=== PATIENT | male | born 1950 | race Caucasian/White ===

== ENCOUNTER → 2019-04-16 11:17 | Outpatient (CLI) | payer MEDICARE, OTHER, SELFPAY ==
[2019-04-16 11:36] LABS: RBC Urine None Seen (0-5/HPF)
[2019-04-16 12:12] LABS: Add Manual Diff / Slide Review NO; Basophils Absolute Auto 0 /uL (0-100); Basophils Percent Auto 0.6 % (0-2); Eosinophils Absolute Auto 100 /uL (0-450); Eosinophils Percent Auto 2.4 % (2-4); Hematocrit 43.8 % (41-53); Hemoglobin 14.8 g/dL (13.5-17.5); Lymphocytes Absolute Auto 1100 /uL (1100-4500); Lymphocytes Percent Auto 17.8 % (25-40); Mean Corpuscular HGB Conc 33.9 % (30-36); Mean Corpuscular Volume 97.5 fL (80-100); Monocytes Absolute Auto 500 /uL (0-900); Monocytes Percent Auto 8.2 % (3-14); Neutrophils Absolute Auto 4400 /uL (1500-7000); Platelet Count 231 X10^3/uL (150-400); Red Cell Distribution Width 13.8 % (11.6-14.8); White Blood Cell Count 6.2 X10^3/uL (4.5-11.0)
[2019-04-16 12:33] LABS: Hemoglobin A1C% w Est Avg Glu 5.1 % (4.0-6.0)
[2019-04-16 12:40] LABS: BUN Creatinine Ratio 22.2 (6-22); Blood Urea Nitrogen 20 mg/dL (9-20); Calcium 9.2 mg/dL (8.4-10.2); Carbon Dioxide 31 mmol/L (22-32); Chloride 103 mmol/L (98-107); Estimated Glomerular Filt Rate > 60.0 mL/min (>60); Glucose 109 mg/dL (80-110); HEMOLYSIS < 15 (0-50); Potassium 4.8 mmol/L (3.4-5.1); Sodium 141 mmol/L (137-145)
[2019-04-16 12:46] LABS: Transferrin 221 mg/dL (206-381)
[2019-04-16 12:51] LABS: Appearance Urine UA CLEAR; Bilirubin Urine UA NEGATIVE (NEGATIVE); Color Urine UA YELLOW; Glucose Urine UA NEGATIVE (Negative); Ketones Urine UA NEGATIVE (NEGATIVE); Leukocyte Esterase Urine UA TRACE (NEGATIVE); Nitrite Urine UA NEGATIVE (Negative); Occult Blood Urine UA NEGATIVE (Negative); Protein Urine UA TRACE (Negative); Specific Gravity Urine UA 1.025 (1.000-1.035); pH Urine UA 6.5 (4.5-8.0)
[2019-04-16 13:05] LABS: Bacteria Urine Few (2-10); Culture Indicated Urine Specimen Cultured; Mucus Urine 1+ (Negative); WBC Urine 1-5/HPF (0-5/HPF)
== END ==
PROVIDERS: PCP Family Medicine; Visit Provider Orthopaedic Surgery
DX: Z01.818 Encounter for other preprocedural examination (principal); R73.9 Hyperglycemia, unspecified; E61.1 Iron deficiency; N39.0 Urinary tract infection, site not specified
CPT/HCPCS: 36415; 80048; 81001; 83036; 84466; 85025; 87086; 93005

== ENCOUNTER 2019-05-03 10:15 | Inpatient (IN) | payer MEDICARE, OTHER, SELFPAY ==
[2019-04-15 13:57] VITALS: BMI 41.4
[2019-05-03] VITALS (21 sets, daily range): BP systolic 149–192; BP diastolic 71–97; PULSE 78–101; RESP 8–87; TEMP 36.1–37.4; O2SAT 89–97; BMI 40.3
--- NOTE | 2019-05-03 06:00 | DI.RAD.S_ITS ---
PROCEDURE: XR KNEE RT 1TO2V INDICATIONS: post op films TECHNIQUE: 2 view(s) of the knee acquired. COMPARISON: [facility], , KNEE 1-2 VIEWS LEFT, 01/05/2008, 11:33. FINDINGS: Bones: Patient is status post knee joint arthroplasty. Hardware components are in expected positions. Visualized bony structures are intact. Soft tissues: Overlying postoperative changes are noted. IMPRESSION: Normal postoperative alignment after completion of the right total knee arthroplasty. Dictated by: Yury Ludwig M.D. on 05/03/2019 at 16:50 Approved by: Yury Ludwig M.D. on 05/03/2019 at 16:51
[2019-05-03] MEDS: LACTATED RINGERS 1,000 ML 42 ML IV (10:57)
[2019-05-03] MEDS: PREGABALIN 75 MG CAPSULE PO (11:06)
[2019-05-03] MEDS: ACETAMINOPHEN 325 MG TABLET 975 MG PO ×2 (11:06→20:55)
[2019-05-03] MEDS: VANCOMYCIN 1,000 MG/200 ML PIGGYBACK 200 MG IV (12:12)
[2019-05-03] MEDS: fentaNYL 100 MCG/2 ML INJ 50 MCG IV (12:30)
[2019-05-03] MEDS: MIDAZOLAM 2 MG/2 ML VIAL 1 MG IV (12:30)
--- NOTE | 2019-05-03 12:30 | PM.PREOP ---
Pre-operative Note Interval Note History & Physical reviewed/Exam performed by Physician: Yes Changes to H&P: No
--- NOTE | 2019-05-03 12:42 | SUR.PREOP ---
Block start time [1230] . Monitoring initiated and maintained throughout procedure. Oxygen and medications given per anesthesiologist instructions. Patient remained stable throughout procedure, no adverse reactions noted. Block end time [[address] Manuel, tolerated well.].
--- NOTE | 2019-05-03 13:15 | PM.OP.1 ---
Operative Date/Time/Diagnoses Date of procedure: 05/03/19 Time of procedure: 15:00 Pre-op diagnosis: 1. Right knee osteoarthritis 2. Failure of unicompartmental arthroplasty Post-op diagnosis: same Procedure & Clinicians Procedure: Revision of unicompartmental arthroplasty to total knee arthroplasty Same procedure as scheduled: Yes Indications: The patient has had progressively worsening right knee pain with radiographic changes consistent with progression of arthritis around his unicompartmental knee replacement. Non-operative management has failed and the patient has requested total knee replacement. The risks, benefits and alternatives to surgery were discussed with the patient prior to proceeding. Risks discussed included, but were not limited to, failure to relieve pain, stiffness, infection, nerve damage, deep venous thrombosis, pulmonary embolism, stroke, coma, heart attack, permanent paralysis and , as well as the potential need for eventual revision of the prosthetic. Surgeon: Vazquez Ding Surgical Assistant: Lili Whaley Click Yes if Unassisted: No Anesthesia Type: General, Peripheral nerve block and Local Operative Notes Findings: Severe osteoarthritic change of both patellofemoral joint and laterally with apparently good fixation of the unicompartmental arthroplasty. Closure Type: primary Specimen(s): none sent Prosthetic devices, grafts, tissues, transplants, or devices: Implants used in this procedure were manufactured by the [employer] and included the BCS II Journey total knee replacement with a size 6 right cobalt chromium femoral component, a size 5 right non porous tibial base plate, a 12 mm crosslinked polyethylene tibial insert and a 32 mm oval Carmen II patellar component. Applied: implant(s) Estimated Blood Loss (mL): 50 Blood products transfused: none Tourniquet time (min): 66 Procedure in detail: The patient was seen in the pre-operative area, where the patient identified the right knee as the operative site and this was marked with my initials. The patient received pre-operative antibiotics, and was taken to the operating room and placed on the operative table in the supine position. After satisfactory anesthesia, a second time worker out was performed. The right leg was encircled with a tourniquet about the proximal thigh, and the leg was prepared from the toes to the tourniquet with Betadine in the usual fashion due to an allergy to ChloraPrep and draped through sterile drapes. The leg was elevated and exsanguinated with Eschmark bandage and the tourniquet inflated to 250 mmHg pressure. The knee was approached through an approximately 18 cm incision centered over the patella and including his previous UKA incision and carried into the knee through a medial parapatellar arthrotomy. The anterior osteophytes and soft tissues were removed. The rotational landmarks of Ignacio's line and the transepicondylar axis were marked on the femur with electrocautery, and intramedullary guide holes for the femur and tibia were created. The distal femoral cutting guide was placed in 6 degrees of valgus using the intramedullary guide at the primary cut setting. The femoral prosthetic was then removed using the revision osteotomes. Minimal bone was removed with the prosthetic. The distal femoral cut was then made and the finishing guide applied to make the anterior, posterior and chamfer cuts.. The tibial component was then removed using the revision osteotomes. The proximal tibial cut was then made using the intramedullary guide, taking 9 mm of bone off the less involved side which corresponded to a skim cut on the medial side where the prosthetic had been removed. The posterior osteophytes and soft tissues were then removed. The posterior capsule was injected with part of a mixture of 60 ml 0.25% Marcaine mixed with 20 ml Exparel and 4 mg of morphine for post-operative pain control. The remainder of this mixture was injected into the capsule and subcutaneous tissues during cement curing. The tibia was prepared with the rotation set by an extra medullary guide. Trial tibial and femoral components were then placed and the intercondylar notch cut through the femoral trial. Range of motion was 0-125 degrees, with good stability throughout the range. The patella was then cut to accommodate the patellar prosthetic. There was no need for a lateral release. The trials were then removed, and the femoral hole plugged with a bone plug. The bone was prepared with pulsatile lavage, and dried with a sponge. Cement was applied and the final prosthetics placed. Excess cement was removed during and after cement curing. After confirming there was no extruded cement posteriorly, the final tibial insert was placed. The knee was copiously irrigated and the tourniquet deflated. Hemostasis was obtained. The capsule was closed with interrupted # 2 polyester suture. The subcutaneous layer was closed with 3-0 Vicryl, and the skin with a running 3-0 V-Lock suture and SteriStrips. An Aquacel Ag dressing was applied and the patient was taken to recovery having tolerated the procedure well. Complications: none Condition: stable Disposition: PACU Plan for aftercare: The patient will be maintained on a standard total knee replacement protocol with weight bearing as tolerated. The patient will receive aspirin and sequential compression devices for DVT prophylaxis. The patient will be discharged home when safe for the home environment.
--- NOTE | 2019-05-03 13:54 | SUR.OPER ---
Supine on padded OR bed. Pillow under head, arms secured on padded armboards <90 degree abduction. Safety belt across torso. Non-operative leg secured with tape over blanket over lower leg. Operative leg secured in DeMayo positioner. Foam padded brace at thigh of operative leg.
[2019-05-03] MEDS: BUPIVACAINE 0.25% W/ EPI 30 ML VIAL 60 ML INJ (14:02)
[2019-05-03] MEDS: MORPHINE 4 MG/ML INJ INJ (14:03)
[2019-05-03] MEDS: BUPIVACAINE LIPOSOME 266 MG/20 ML VIAL INJ (14:03)
--- NOTE | 2019-05-03 14:52 | P.PCN_ITS ---
Procedures Date/Time Date of procedure: 05/03/19 Time of procedure: 12:31 Nerve Block Time out performed: Yes Local anesthetic used: lidocaine 1% (w/ epi 5mL + 15mL 0.5opivacaine) Location of anesthetic used: adductor canal Amount of anesthesia used (mL): 20 Nerve blocks: femoral (adductor canal) Procedure successful: Yes Patient tolerated procedure: well Complications: none Additional comments: RIGHT Adductor canal block for post operative pain management. R/B discussed. Site marked. Consent verified/signed. Standard ASA monitors. NC O2. Chloroprep. Sterile technique. Femoral A/V/N identified medial mid thigh with US. Lidocaine skin wheal. 100mm x 21g Pajunk needle advanced with in-plane US guidance. Negative aspiration. LA injected medial and lateral to femoral artery. Negative aspiration throughout. No pain, no paresthesia with injection. VSS. Tolerated well. To OR.
[2019-05-03] MEDS: HYDROMORPHONE 2 MG INJ 1 MG IV (16:10)
--- NOTE | 2019-05-03 16:44 | SUR.PHASEI ---
1641 Dozing, arouses easily and spontaneously. Taking ice chips without difficulty swallowing.
--- NOTE | 2019-05-03 16:52 | SUR.PHASEI ---
Sleeping, desat occasionally, usually in the 92-94% range, occasionally as low as 88% but is becoming less frequent with a rapid return to 90s.Pain well controlled, waiting to transfer until resp are even and regular with maintained sats. Will call RT to plan appropriate care.
--- NOTE | 2019-05-03 17:30 | SUR.PHASEI ---
Report called to Cyril RN in acute care, told him that patient occasionally desats on 4LNP; that RT was notified that pt. will need eval and treat, prob CPAP. BP stable, arouses easily to voice, RLE unchanged. Preparing to transfer on O2; clothing bag to room.
--- NOTE | 2019-05-03 17:48 | SUR.PHASEI ---
1737 to room 208. bed down and locked, call light within reach. Placed on O2 at 4LNP. present, SCDs on. VSS. No further questions from staff, RLE unchanged.Pulse oximeter on.
[2019-05-03] MEDS: LACTATED RINGERS 1,000 ML 125 ML IV (18:37)
[2019-05-03] MEDS: OXYCODONE IR 10 MG TABLET PO ×2 (18:49→22:04)
[2019-05-03] MEDS: DOCUSATE 100 MG CAPSULE PO (20:55)
[2019-05-03] MEDS: ASPIRIN EC 81 MG TABLET PO (20:55)
[2019-05-03] MEDS: HYDROMORPHONE 0.5 MG INJ IV (22:05)
[2019-05-04] VITALS (9 sets, daily range): BP systolic 113–132; BP diastolic 57–72; PULSE 77–90; RESP 12–20; TEMP 36.3–37.2; O2SAT 91–98
[2019-05-04] MEDS: OXYCODONE IR 10 MG TABLET PO ×2 (01:02→04:57)
[2019-05-04] MEDS: LACTATED RINGERS 1,000 ML 125 ML IV (02:25)
[2019-05-04 06:16] LABS: Hematocrit 39.7 % (41-53); Hemoglobin 13.1 g/dL (13.5-17.5)
--- NOTE | 2019-05-04 07:25 | PM.DS.1 ---
History of Present Illness Date Patient Seen: 05/04/19 Time Patient Seen: 07:26 Chief complaint: [id number] Narrative: The history and physical are contained in the chart previously completed note. Please refer to that note for this information. Discharge Providers Date of admission: 05/03/19 10:15 Discharge Date: 05/04/19 Primary care physician: Wes Stephen MD Consults: 05/03/19 17:46 Consult to Discharge Planning Routine Comment: Consult to Physical Therapy Evaluate & Treat Comment: Physician Instructions: postop TKA protocol Discharge provider: Vazquez Ding MD Summary Discharge Diagnosis: 1. Progression of right knee osteoarthritis with failure of prior unicompartmental arthroplasty 2. Post hemorrhagic anemia Hospital Course: The patient was admitted to the hospital and taken directly to the operating room on May 03, 2019. He underwent a revision of his right knee unicompartmental arthroplasty to a total knee without complication. He did have some issues with pain control on the 1st postoperative night requiring intravenous pain medication. This was improved in the morning of postoperative day 1. He has not yet seen physical therapy but at the time of this dictation is hoped he will be able to go home later in the day provided he makes adequate progress with therapy. Status at Discharge Cognitive/behavioral status at discharge: oriented Functional status at discharge: uses cane/walker Overall status at discharge: patient is not back to baseline Time Spent with Patient Less than 30 minutes Exam Vital Signs (past 8 hours): - 05/03/19 23:30 05/04/19 05:04 05/04/19 07:07 Temperature 97.4 F L Pulse Rate 78 Respiratory Rate 20 Blood Pressure 131/72 Pulse Oximetry 94 97 96 Oxygen Delivery Method Nasal Cannula Oxygen Flow Rate 1 Narrative Exam Narrative: Right knee wound is dressed with no drainage on the bandage. Calf is soft. Light touch and motion are intact in the right lower extremity. Objective Labs Result Diagrams: 05/04/19 05:30 Labs: Laboratory Results - last 24 hr 05/04/19 05:30 Hgb 13.1 L Hct 39.7 L Discharge Plan Discharge Plan Patient Disposition: Home Discharge Med Rec/Prescriptions Prescriptions: New acetaminophen 325 mg Tablet 975 mg PO TID 30 Days Qty: 270 RF: 0 aspirin 81 mg Tablet,Delayed Release (Dr/Ec) 81 mg PO BID 42 Days Qty: 84 RF: 0 oxycodone 5 mg Tablet 5 mg PO Q3HR PRN (Reason: Pain, Moderate (4-6)) Qty: 40 RF: 0 hydroxyzine pamoate 25 mg Capsule 25 mg PO Q6HR PRN (Reason: Nausea) Qty: 40 RF: 0 Continued meloxicam 15 mg Tablet 15 mg PO DAILY RF: 0 methotrexate sodium 25 mg/mL Solution 0.8 ml IM QWEEK RF: 0 Discontinued acetaminophen [Tylenol Arthritis Pain] 650 mg Tablet Extended Release 3 tab PO BID PRN (Reason: Pain) RF: 0 Follow up/Referrals: Wes Stephen MD [Primary Care Provider] - Vazquez Ding MD [Physician] - 3-5 Days Provider Discharge Instructions Diet: Diet as Tolerated Activity: You may bear weight as tolerated on the right leg. Cold/Heat Therapy: Apply ice to the right knee for 15 minutes every hour as needed for pain control. Skin/Wound/Dressing Care Report to your healthcare provider any signs of infection, such as:: chills, fever, night sweats, increased pain, unusual drainage and unusual redness Dressing: Remove the Joseph wrap 3 days after surgery. You may then shower as normal. The leave the deeper dressing in place. If the central strip of the deeper dressing becomes saturated with either water or blood please call the office to have it changed. Visit Report/Discharge Packet Instructions: DI for Knee Replacement, How to Prevent Falls, DI for Postoperative Pain, Oxycodone, Hydroxyzine Stand Alone Forms: Surgery Discharge Discharge Data Primary Care Provider: Wes Stephen Attending Provider: Vazquez Ding Admit Date/Time: 05/03/19 10:15 Quality VTE Deep Vein Thrombosis/Pulmonary Embolism Present on Admission: No
[2019-05-04] MEDS: ASPIRIN EC 81 MG TABLET PO ×2 (08:28→21:38)
[2019-05-04] MEDS: MELOXICAM 7.5 MG TABLET 15 MG PO (08:28)
[2019-05-04] MEDS: DOCUSATE 100 MG CAPSULE PO ×2 (08:28→21:38)
[2019-05-04] MEDS: ACETAMINOPHEN 325 MG TABLET 975 MG PO ×2 (08:28→21:39)
[2019-05-04] MEDS: OXYCODONE IR 5 MG TABLET PO ×3 (08:29→21:43)
[2019-05-04] MEDS: SODIUM CHLORIDE 0.9% FLUSH 10 ML IV ×2 (08:30→21:38)
--- NOTE | 2019-05-04 09:24 | CM.DANOTE ---
DCP/Assessment: Reviewed chart. Patient is a 68yr old male admitted to [facility] for elective right TKA performed on 05-03-[address] Ding. PCP is Dr. Stephen. Primary payor is 1)Medicare 2)[employer]. Met with patient explained CM/SW role. Patient alert and oriented at time of visit. Patient resting comfortably in bed. Therapy evaluation currently pending. Patient hopes to return home today. Patient reports that he has all needed DME and outpatient therapy arranged. P: Anticipate home when stable. CM team to continue to follow. Therapy evaluation pending. 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 Yes Advance Directives on File No History Provided By Patient Medical Record Prior Living Arrangements House Household Members spouse Type of transporation used prior to Drives own vehicle admit Independent with ADL's Yes Is patient alert and oriented? Yes Caregiver for Another No DME Already Rented / Owned FWW / Walker Other Comment Ramp Patient/Family Preference OP PT Therapy Comment [facility] Barriers to Discharge No Discharge Plan Home Transportation Arrangement Family Whiteboard Updated in Patient Room with Yes name and ext. # of Branding 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 Review Status In Process Next Review Type Continued Stay Review Pre-Anesthesia Assessment Start: 04/15/19 13:57 Freq: Status: Complete Protocol: Document 04/15/19 13:57 CAB (Rec: 04/15/19 14:30 CAB [id number]) Pre-Anesthesia Assessment PAC Comment Chlorhexidine allergy Patient Information Reviewed Via Phone Assessment Assessment Completed With Patient Primary Care Provider Wes Stephen Seen Specialist in Last 12 Months Yes Specialist Seen [place] [facility] Primary Language Northern [place] Sports Official Required No Height 177.8 cm Weight 131.088 kg Body Mass Index (BMI) 41.4 Hearing Ability Hard of Hearing Visual Assist Glasses Magnifying Glass Dentition Type Teeth, Natural Present Barriers to Learning None Auditory Other Aids No Hx Anesthesia Reactions Yes: It takes a long time for me to wake up Hx Family Anesthesia Reaction No Hx Malignant Hyperthermia No Hx Blood Transfusions Yes: x 4 2012 r/t hip surgeries Hx Blood Transfusion Reaction No Anesthesia Review Requested No alcohol intake current alcohol intake frequency a few times a week Smoking Status Never smoker Substance Use Type does not use Pain Present Pain Reported Musculoskeletal Symptoms Abnormal Gait Difficulty Walking Joint Pain Muscle Weakness Numbness History of Falling (Recent or History of Yes ) Patient is completely paralyzed or No completely immobile Mental Status Oriented to own ability Is patient on oxygen? No Does patient have EAST/SOB No Hx Sleep Apnea No Currently Taking a Beta Jesus No Can You Climb a Flight of Stairs Without Yes SOB Hx Chest Pain No Hx SOB No Hx Syncope or Dizziness No Anti-Coagulant Therapy No Has a Cut Off Saw Grader No Cardiac Testing No Hx Pacemaker/ICD No Pacemaker Rep Required? 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 Marital Status Lives With spouse Prior Living Arrangements House Number of Floors (Floors) Two Floors Support System Child/Children Spouse Does the Patient Have Assistance After Yes Surgery Patient Discharge Plan Description Return Home Comment Pt advised 1-2 day length of stay per surgeon's office Feels Safe in Current Environment Yes Been Physically Hurt or Threatened By a No Person in Current Environment Do you have thoughts of harming yourself None or others? Are you currently considering suicide? No Do you have a plan to hurt yourself or No Plan others? Do You Have Any Spiritual Beliefs That No May Affect Your HC Choices? Do You Have Any Cultural Practices That No May Affect Your HC Choices? Comment Denzel Who Can We Speak to About Patient's Care Family, friends Identifying Code for Release of Patient Declines to issue Information Health Care Proxy/Next of Kin Casie () Health Care Proxy Emergency Contact Name Casie () Emergency Contact Advance Directives? Yes Advance Directives on File No PAC Instructions Durable medical equipment Medications to take/avoid Nasal antibiotic No ETOH/petroleum product on skin DOS NPO Ortho class Post-op transportation Pre-surgical wash Sturdy shoes/comfortable clothes Do not bring valuables and remove jewelry
--- NOTE | 2019-05-04 09:35 | PT.IIE ---
Current Diagnoses Unilateral primary osteoarthritis, right knee (05/03/19) Presence of artificial knee joint, bilateral (05/03/19) Surgery Performed Operation Date: 05/03/19 12:30 Actual Procedures p Total Knee Arthroplasty Revision-Uni to total(Right) - Vazquez Ding MD Surgical History (Last Updated 04/15/19 @ 14:22 by Kortney Wray RN) History of total left hip arthroplasty (Acute ~2011) Hx of tonsillectomy (Acute) Medical History (Last Updated 04/15/19 @ 14:16 by Kortney Wray RN) Easy bruisability (Acute) Hearing impaired (Acute) History of prosthetic unicompartmental arthroplasty of both knees (Acute) Numbness (Acute) Skin cancer (Acute ~02/2019) Physical Therapy Inpatient Evaluation/Re-Eval M1 PT/OT-IP Prior Functional Status Start: 05/04/19 12:45 Freq: NEEDED Status: Active Protocol: Document 05/04/19 09:35 AB (Rec: 05/04/19 12:57 AB [id number]) Medical Review Prior Functional Status Medical History Reviewed Yes Communication able to make needs known Mobility and Gait pt stated that he is independent with all mobilities and ambulation without AD Social History Household Members spouse Living Arrangements House Number of Floors (Floors) One Floor Number of Stairs To Enter/Railing? ramp to enter Home Environment Standard Height Toilet Tub/Shower Home Equipment Front Wheel Walker Quad Cane Straight Cane Shower Seat without Backrest Hand Held Shower Grab Bars In Shower Employment Status Retired M2 PT-IP Current Condition Start: 05/04/19 12:45 Freq: NEEDED Status: Active Protocol: Document 05/04/19 09:35 AB (Rec: 05/04/19 12:57 AB [id number]) Physical Therapy Current Condition Current Condition Evaluation Date 05/04/19 Treatment Diagnosis s/p R TKA revision; difficulty in walking Onset Date 05/03/19 Weight Bearing Status Weight Bearing Status Weight Bear as Tolerated M3 PT-IP Subjective Start: 05/04/19 12:45 Freq: NEEDED Status: Active Protocol: Document 05/04/19 09:35 AB (Rec: 05/04/19 12:57 AB [id number]) Subjective Physical Therapy Visit Type Type Initial Evaluation Visit Start Time 09:35 Visit Stop Time 10:28 Total Visit Minutes 53 Number of LAP POLISHER Visits 0 Physical Therapy Visit Comments Patient Comments pt agreeable to do PT; spouse present during PT session Therapy Pain Assessment Pain When Pain Assessed At Rest Pain Present Pain Present Pain Reported Location right knee Intensity 2 Scale Used Numeric (1 - 10) Pain Management Techniques Apply Cold Re-positioning Timing of Activity with Medications M4 PT-IP Mobility and Gait Start: 05/04/19 12:45 Freq: NEEDED Status: Active Protocol: Document 05/04/19 09:35 AB (Rec: 05/04/19 12:57 AB [id number]) PT-Bed Mobility Assessment Supine to Sit Supine to Sit Standby Assistance Scooting Scooting to Edge of Bed Standby Assistance PT-Transfer Assessment Sit to and From Stand Sit to and from Stand Contact Guard Assistance Minimal Assistance Equipment Transfer Assistive Device Gait Belt Front Wheeled Walker Orthotic/Prosthetic Devices or Brace: No Transfers Transfer Destination Chair Transfer Technique pt ambulated using FWW Transfer Ability Level of Assist Contact Guard Assistance Minimal Assistance Use of Upper Extremities Comments Mobility Comments pt completed supine to sit SBA . completed sit to stand CGA to min A and cues for techniques. pt ambulated using FWW ~ 12 towards the chair CGA to min A and cues. caregiver training conducted with spouse. educated spouse on how to use safety belt and how to assist pt. spouse was able to assist pt with sit to stand and ambulated with pt ~ 12 ft using FWW. pt rested sitting EOB and ambulated again back to the chair using FWW CGA to min A and cues. Spouse that that pt has to be able to ambulate ~ 50 ft to get inside the house. Gait Assessment Gait Gait Assistance Required: Contact Guard Assist Minimum Assistance Distance (Feet) 12 Able to Maintain Weight Bearing Status Yes During Gait Assistive Devices Assistive Device Gait Belt Front Wheeled Walker Orthotic/Prosthetic Devices or Brace: No Gait Deviations General Gait Pattern Antalgic Decreased Stride Length Decreased Feet Clearance Step-to Gait Factors Limiting Gait Function Factors Limiting Gait Function Decreased Activity Tolerance Decreased Strength Limited Range of Motion Pain Poor Balance PT-Balance Assessment Sitting Balance and Reactions Static Sitting Balance Ability Good Dynamic Sitting Balance Ability Good Standing Balance and Reactions Static Standing Balance Ability Fair Dynamic Standing Balance Ability Fair Device Used FWW M5 PT-IP Objective Assessments Start: 05/04/19 12:45 Freq: NEEDED Status: Active Protocol: Document 05/04/19 09:35 AB (Rec: 05/04/19 12:57 AB [id number]) Orientation Orientation/Cognition Level of Alertness Alert Orientation Name Place Situation Language Function Ability No Deficits Noted Safety Awareness Understands Safety Issues Memory Description No Deficits Noted Gross Range of Motion Lower Extremity ROM Assessment Right Impaired Impairments R knee flexion: ~ 70 deg R knee extension ~ 20 deg Strength Lower Extremity Strength Assessment Right Impaired Hip 3+/5 Knee 3-/5 Sensation Assessment Sensation Gross Sensation WNL Muscle Tone Muscle Tone WNL Yes M6 PT-IP Treatment Start: 05/04/19 12:45 Freq: NEEDED Status: Active Protocol: Document 05/04/19 09:35 AB (Rec: 05/04/19 12:57 AB [id number]) Physical Therapy Treatment Exercises Exercises Quad Sets Heel Slides Education Education Provided Precautions Weight Bearing Status Post-Op Packet Safety M7 PT-IP Assessment and Plan Start: 05/04/19 12:45 Freq: NEEDED Status: Active Protocol: Document 05/04/19 09:35 AB (Rec: 05/04/19 12:57 AB [id number]) PT Summary Assessment and Plan Potential Rehabilitation Potential Good Status of Condition at Evaluation Stable Summary Impairments Pain ROM Strength Balance Coordination Sensation Bed Mobility Transfers Gait Activity Tolerance Assessment Summary pt requiring CGA to min A with mobility. caregiver training conducted with pt and spouse. spouse was able to assist pt. will conduct long distance ambulation for next tx session . spouse stated that pt has to be able to ambulate ~ 50 ft to get into the house but pt was tired towards end of tx session and unable to ambulate more. pt plans to go home and spouse will assist him. pt is already set up for outpt PT. Goals Bed Mobility Goal Independent Transfer Goal Independent Front Wheeled Walker Gait Goal Standby Assistance Front Wheel Walker Gait Distance 200 Days to Meet Goals 3 Frequency of Treatment Frequency Of Treatment Twice a Day Treatment Plan Physical Therapy Treatment Plan Bed Mobility Training Transfer Training Gait Training Therapeutic Exercise Balance Retraining Post Op Education Discharge Planning Hot or Cold Pack Neuromuscular Re-ed Coordination Retraining Manual Therapy Other Recommendations and Next Treatment ambulation long distance Focus Recommendations To Nursing Amount of Assist Needed 1 Person Assist Discharge Recommendations PT Discharge Recommendations Home with Assistance Outpatient PT
--- NOTE | 2019-05-04 15:18 | PT.IPTN ---
Current Diagnoses Unilateral primary osteoarthritis, right knee (05/03/19) Presence of artificial knee joint, bilateral (05/03/19) Surgery Performed Operation Date: 05/03/19 12:30 Actual Procedures p Total Knee Arthroplasty Revision-Uni to total(Right) - Vazquez Ding MD Physical Therapy Treatment Note M2 PT-IP Current Condition Start: 05/04/19 12:45 Freq: NEEDED Status: Active Protocol: Document 05/04/19 09:35 AB (Rec: 05/04/19 12:57 AB [id number]) Physical Therapy Current Condition Current Condition Evaluation Date 05/04/19 Treatment Diagnosis s/p R TKA revision; difficulty in walking Onset Date 05/03/19 Weight Bearing Status Weight Bearing Status Weight Bear as Tolerated M3 PT-IP Subjective Start: 05/04/19 12:45 Freq: NEEDED Status: Active Protocol: Document 05/04/19 14:00 CLB (Rec: 05/04/19 15:18 CLB [id number]) Subjective Physical Therapy Visit Type Type Treatment Note Visit Start Time 14:00 Visit Stop Time 14:30 Total Visit Minutes 30 Number of DIRECTOR CASE Visits 1 Physical Therapy Visit Comments Patient Comments pt agreeable to do PT; spouse present during PT session Therapy Pain Assessment Pain When Pain Assessed During Mobility Pain Present Pain Present Pain Reported Location right knee Intensity 6 Scale Used Numeric (1 - 10) Pain Management Techniques Apply Cold Re-positioning Timing of Activity with Medications M4 PT-IP Mobility and Gait Start: 05/04/19 12:45 Freq: NEEDED Status: Active Protocol: Document 05/04/19 14:00 CLB (Rec: 05/04/19 15:18 CLB [id number]) PT-Bed Mobility Assessment Sit to Supine Sit to Supine Moderate Assistance 2 Person Assistance Scooting Scooting Up and Down in Bed Minimal Assistance PT-Transfer Assessment Sit to and From Stand Sit to and from Stand Moderate Assistance 2 Person Assistance Use of Upper Extremities Equipment Transfer Assistive Device Gait Belt Front Wheeled Walker Orthotic/Prosthetic Devices or Brace: No Transfers Transfer Destination Bed Transfer Technique pt ambulated using FWW Transfer Ability Level of Assist Minimal Assistance 1 Person Assistance Use of Upper Extremities Comments Mobility Comments Pt required Mod A x2 to stand from chair. Pt required CGA to sit onto bed with cues for hand placement to control descent. Pt required Mod A sit -supine with verbal cues to to scoot up in bed as pt used bed rails over head to assist with scooting. Gait Assessment Gait Gait Assistance Required: Contact Guard Assist 1 Person Assist Distance (Feet) 12 Able to Maintain Weight Bearing Status Yes During Gait Assistive Devices Assistive Device Gait Belt Front Wheeled Walker Orthotic/Prosthetic Devices or Brace: No Gait Deviations General Gait Pattern Antalgic Decreased Stride Length Decreased Feet Clearance Step-to Gait Factors Limiting Gait Function Factors Limiting Gait Function Decreased Activity Tolerance Decreased Strength Limited Range of Motion Pain Poor Balance Comments Gait Comments Pt c/o increased pain with ambulation and was too fatigued to ambulate any farther. Pt on 2L O2, O2 saturation at rest 92%, saturation during activity 98% . Pt c/o SOB with ambulation. M5 PT-IP Objective Assessments Start: 05/04/19 12:45 Freq: NEEDED Status: Active Protocol: Document 05/04/19 09:35 AB (Rec: 05/04/19 12:57 AB [id number]) Orientation Orientation/Cognition Level of Alertness Alert Orientation Name Place Situation Language Function Ability No Deficits Noted Safety Awareness Understands Safety Issues Memory Description No Deficits Noted Gross Range of Motion Lower Extremity ROM Assessment Right Impaired Impairments R knee flexion: ~ 70 deg R knee extension ~ 20 deg Strength Lower Extremity Strength Assessment Right Impaired Hip 3+/5 Knee 3-/5 Sensation Assessment Sensation Gross Sensation WNL Muscle Tone Muscle Tone WNL Yes M6 PT-IP Treatment Start: 05/04/19 12:45 Freq: NEEDED Status: Active Protocol: Document 05/04/19 14:00 CLB (Rec: 05/04/19 15:18 CLB [id number]) Physical Therapy Treatment Exercises Exercises Ankle Pumps Quad Sets Heel Slides Education Education Provided Precautions Weight Bearing Status Safety Other Treatments Other Treatment Performed Placed SCD's on at end of tx. M7 PT-IP Assessment and Plan Start: 05/04/19 12:45 Freq: NEEDED Status: Active Protocol: Document 05/04/19 14:00 CLB (Rec: 05/04/19 15:18 CLB [id number]) PT Summary Assessment and Plan Summary Impairments Pain ROM Strength Balance Coordination Sensation Bed Mobility Transfers Gait Activity Tolerance Assessment Summary Pt requiring increased assist this tx needing Mod A x2 sit- stand and sit-supine. Pt with increased pain and fatigue after ~12ft requiring him to sit down. Pt will need to ambulate ~50ft from car to house and at this time pt is unable to ambulate the needed distance for safe discharge. Pt also requires increased assist into bed and will not be able to provide the proper degree of assist. Pt may continue to improve during hospital stay but may require SNF rehab to improve mobility and strength. Goals Bed Mobility Goal Independent Transfer Goal Independent Front Wheeled Walker Gait Goal Standby Assistance Front Wheel Walker Gait Distance 200 Days to Meet Goals 3 Frequency of Treatment Frequency Of Treatment Twice a Day Treatment Plan Physical Therapy Treatment Plan Bed Mobility Training Transfer Training Gait Training Therapeutic Exercise Balance Retraining Post Op Education Discharge Planning Hot or Cold Pack Neuromuscular Re-ed Coordination Retraining Manual Therapy Other Recommendations and Next Treatment ambulation long distance Focus Recommendations To Nursing Amount of Assist Needed 1 Person Assist Discharge Recommendations PT Discharge Recommendations Home with Assistance SNF Rehab Outpatient PT
--- NOTE | 2019-05-04 15:41 | PC.NURSE ---
Day Shift- Pt tolerated breakfast, OOB with PT to recliner chair. Around 1145, pt had large amount of emesis over himself and onto the floor infront of recliner chair. Nausea settled after vomiting. Pain medication Oxycodone po prn given at 0830 and 1155 with good effect. At 1300, AUTO BODY REPAIR TECHNICIAN stated was difficult to get an O2 sat reading. Bilateral Fingertips and toes were cool to touch, nail beds slightly discolored. Warm blanket applied. RT called to assess. Had pt perform incentive spirometer that he had from Ortho office. RT placed pt on 3L NC, recovered from low 80's to mid 90's, placed down to 2L NC O2. O2 sat 96%. RT gave pt hospital incentive spirometer to use. RR 12 bpm. At 1430, PT stated that pt walked only 10 feet from recliner around end of bed. Recommend pt to stay for further PT. Evening RN aware to call Physician to have discharge orders cancelled.
[2019-05-04] MEDS: [UNRECOGNIZED DRUG - OTHER] TOP (21:38)
[2019-05-05] VITALS (10 sets, daily range): BP systolic 121–143; BP diastolic 56–66; PULSE 79–90; RESP 16–18; TEMP 36.4–37.6; O2SAT 88–98
--- NOTE | 2019-05-05 06:44 | PM.PNPO.1 ---
Subjective Date Patient Seen: 05/05/19 Time Patient Seen: 06:44 Interval history: The patient reports he is comfortable. Despite his best efforts he made minimal progress with physical therapy yesterday. Nursing reports he is still requiring oxygen supplementation to maintain his saturation at rest. With activity his saturation is 98% with 2 L supplementation. Exam Vital Signs (past 8 hours): - 05/04/19 23:00 05/05/19 05:44 Temperature 98.4 F 99.0 F Pulse Rate 89 81 Respiratory Rate 16 18 Blood Pressure 131/58 L 129/59 L Pulse Oximetry 93 97 Oxygen Delivery Method Nasal Cannula Oxygen Flow Rate 2 Narrative Exam Narrative: Right knee wound is dressed with no drainage on the bandage. Calf is soft. Light touch and motion are intact in the right lower extremity. Objective Labs Result Diagrams: 05/04/19 05:30 Assessment & Plan Post-op Postoperative Procedures Operation Date: 05/03/19 12:30 Actual Procedures Side Surgeon p Total Knee Arthroplasty Revision-Uni to total Right Vazquez Ding MD Postoperative day: 2 Postoperative status: doing well and other (Poor oxygenation) Postoperative status narrative: The patient is generally stable from a pain control status. The patient was in poor physical condition preoperatively and this is manifesting postoperatively with slow progress with physical therapy. At this point he has not been made appropriate milestones for discharge home from standpoint of physical therapy. We also need to monitor his oxygenation before discharge. Postoperative plan: routine post-op care, ambulate and other (Incentive spirometer) Postoperative plan narrative: We will continue the work with the patient with physical therapy to advance his ambulatory status. We will have him concentrate on using his incentive spirometer. It is also likely his oxygenation will improve when he is up and moving around rather than in the supine position with his pannus depressing his abdominal contents and restricting his respiratory volumes. I anticipate he will be able to be discharged tomorrow. Time Spent With Patient less than 15 minutes Quality VTE Deep Vein Thrombosis/Pulmonary Embolism Present on Admission: No
[2019-05-05] MEDS: ACETAMINOPHEN 325 MG TABLET 975 MG PO ×3 (08:12→20:24)
[2019-05-05] MEDS: ASPIRIN EC 81 MG TABLET PO ×2 (08:12→20:26)
[2019-05-05] MEDS: DOCUSATE 100 MG CAPSULE PO ×2 (08:12→20:24)
[2019-05-05] MEDS: MELOXICAM 7.5 MG TABLET 15 MG PO (08:13)
[2019-05-05] MEDS: OXYCODONE IR 5 MG TABLET PO ×2 (08:13→12:02)
[2019-05-05] MEDS: SODIUM CHLORIDE 0.9% FLUSH 10 ML IV ×2 (08:13→20:25)
[2019-05-05] MEDS: [UNRECOGNIZED DRUG - OTHER] TOP ×2 (08:15→20:25)
--- NOTE | 2019-05-05 10:58 | PT.IPTN ---
Current Diagnoses Unilateral primary osteoarthritis, right knee (05/03/19) Presence of artificial knee joint, bilateral (05/03/19) Surgery Performed Operation Date: 05/03/19 12:30 Actual Procedures p Total Knee Arthroplasty Revision-Uni to total(Right) - Vazquez Ding MD Physical Therapy Treatment Note M2 PT-IP Current Condition Start: 05/04/19 12:45 Freq: NEEDED Status: Active Protocol: Document 05/04/19 09:35 AB (Rec: 05/04/19 12:57 AB [id number]) Physical Therapy Current Condition Current Condition Evaluation Date 05/04/19 Treatment Diagnosis s/p R TKA revision; difficulty in walking Onset Date 05/03/19 Weight Bearing Status Weight Bearing Status Weight Bear as Tolerated M3 PT-IP Subjective Start: 05/04/19 12:45 Freq: NEEDED Status: Active Protocol: Document 05/05/19 09:30 CLB (Rec: 05/05/19 10:57 CLB [id number]) Subjective Physical Therapy Visit Type Type Treatment Note Visit Start Time 09:30 Visit Stop Time 10:05 Total Visit Minutes 35 Number of SOLDERER ASSEMBLER Visits 2 Physical Therapy Visit Comments Patient Comments pt agreeable to do PT; spouse present during PT session Therapy Pain Assessment Pain When Pain Assessed During Mobility Pain Present Pain Present Pain Reported Location right knee Intensity 2 Scale Used Numeric (1 - 10) Pain Management Techniques Apply Cold Re-positioning Timing of Activity with Medications M4 PT-IP Mobility and Gait Start: 05/04/19 12:45 Freq: NEEDED Status: Active Protocol: Document 05/05/19 09:30 CLB (Rec: 05/05/19 10:57 CLB [id number]) PT-Bed Mobility Assessment Supine to Sit Supine to Sit Moderate Assistance 1 Person Assistance Scooting Scooting to Edge of Bed Moderate Assistance PT-Transfer Assessment Sit to and From Stand Sit to and from Stand Minimal Assistance 1 Person Assistance Use of Upper Extremities Equipment Transfer Assistive Device Gait Belt Front Wheeled Walker Transfers Transfer Destination Bed Chair Transfer Technique pt ambulated using FWW Transfer Ability Level of Assist Minimal Assistance 1 Person Assistance Use of Upper Extremities Comments Mobility Comments Pt required Mod A supine-sit with use of draw sheet to get to EOB. Pt on 2L O2 with saturations at 94% while resting and O2 saturations decreasing as low as 71% with exersion. Pt able to return to 90% with cues for pursed lip breathing after just a few breaths. Gait Assessment Gait Gait Assistance Required: Contact Guard Assist 1 Person Assist Distance (Feet) 12 Able to Maintain Weight Bearing Status Yes During Gait Assistive Devices Assistive Device Gait Belt Front Wheeled Walker Orthotic/Prosthetic Devices or Brace: No Gait Deviations General Gait Pattern Antalgic Decreased Stride Length Decreased Feet Clearance Step-to Gait Factors Limiting Gait Function Factors Limiting Gait Function Decreased Activity Tolerance Decreased Strength Limited Range of Motion Pain Poor Balance Comments Gait Comments Pt improved with gait and rated his pain during ambulation 11/15. Pt tires after 12 ft and needed to sit. M5 PT-IP Objective Assessments Start: 05/04/19 12:45 Freq: NEEDED Status: Active Protocol: Document 05/04/19 09:35 AB (Rec: 05/04/19 12:57 AB [id number]) Orientation Orientation/Cognition Level of Alertness Alert Orientation Name Place Situation Language Function Ability No Deficits Noted Safety Awareness Understands Safety Issues Memory Description No Deficits Noted Gross Range of Motion Lower Extremity ROM Assessment Right Impaired Impairments R knee flexion: ~ 70 deg R knee extension ~ 20 deg Strength Lower Extremity Strength Assessment Right Impaired Hip 3+/5 Knee 3-/5 Sensation Assessment Sensation Gross Sensation WNL Muscle Tone Muscle Tone WNL Yes M6 PT-IP Treatment Start: 05/04/19 12:45 Freq: NEEDED Status: Active Protocol: Document 05/05/19 09:30 CLB (Rec: 05/05/19 10:57 CLB [id number]) Physical Therapy Treatment Exercises Exercises Quad Sets Heel Slides Straight Leg Raises M7 PT-IP Assessment and Plan Start: 05/04/19 12:45 Freq: NEEDED Status: Active Protocol: Document 05/05/19 09:30 CLB (Rec: 05/05/19 10:57 CLB [id number]) PT Summary Assessment and Plan Summary Impairments Pain ROM Strength Balance Coordination Sensation Bed Mobility Transfers Gait Activity Tolerance Assessment Summary Pt continues to require Mod A for bed mobility but was able to stand with Min A with raised bed. Pt requires cues for hand placement before sitting to slow descent and needed assist advancing RLE forward before sitting. Pt O2 saturations on 2L during bed mobility decreased to 71% then increased with PLB after just a few breaths. Pt may required SNF rehab at d/c to increase activity tolerance and strength. Goals Bed Mobility Goal Independent Transfer Goal Independent Front Wheeled Walker Gait Goal Standby Assistance Front Wheel Walker Gait Distance 200 Days to Meet Goals 3 Frequency of Treatment Frequency Of Treatment Twice a Day Treatment Plan Physical Therapy Treatment Plan Bed Mobility Training Transfer Training Gait Training Therapeutic Exercise Balance Retraining Post Op Education Discharge Planning Hot or Cold Pack Neuromuscular Re-ed Coordination Retraining Manual Therapy Recommendations To Nursing Amount of Assist Needed 1 Person Assist Discharge Recommendations PT Discharge Recommendations Home with Assistance SNF Rehab Outpatient PT
--- NOTE | 2019-05-05 11:08 | PC.NURSE ---
Day Shift- Pt reports 2-/10 pain, aching and throbbing with movement to right knee incision area. PRN Oxycodone given at 0813 with good effect. Right knee aquacel dressing intact with small amount of drainage shadowing to proximal end of dressing, area now marked with pen by this global technical writer. Date on dressing from 05/04/19. Joseph wrap covering dressing. CMS+. PPP, Edema RLE 1+ pitting around ankle to mid calf area. Edema LLE non pitting to ankle. Pt states his legs get swollen in the evening time when at home. OOB with PT from bed to chair this AM. Settled in chair in reclined position, ice pack X2 to right knee. O2 sat 94% on 2L NC, decreased to 1L NC this AM, RT checked O2 sat for pt, O2 NC increased to 2L NC. Will monitor. Encouraged ankle pumps exercises, while sitting in chair as SCD's removed for activity. Also pt able to properly demonstrate use of incentive spirometer. Volume [id number]. encouraged use hourly. Right lower lobe diminished with slight coarseness. Stated feeling short of breath with exertion ambulating in room with PT.
--- NOTE | 2019-05-05 14:30 | PT.IPTN ---
Current Diagnoses Unilateral primary osteoarthritis, right knee (05/03/19) Presence of artificial knee joint, bilateral (05/03/19) Surgery Performed Operation Date: 05/03/19 12:30 Actual Procedures p Total Knee Arthroplasty Revision-Uni to total(Right) - Vazquez Ding MD Physical Therapy Treatment Note M2 PT-IP Current Condition Start: 05/04/19 12:45 Freq: NEEDED Status: Active Protocol: Document 05/04/19 09:35 AB (Rec: 05/04/19 12:57 AB [id number]) Physical Therapy Current Condition Current Condition Evaluation Date 05/04/19 Treatment Diagnosis s/p R TKA revision; difficulty in walking Onset Date 05/03/19 Weight Bearing Status Weight Bearing Status Weight Bear as Tolerated M3 PT-IP Subjective Start: 05/04/19 12:45 Freq: NEEDED Status: Active Protocol: Document 05/05/19 14:10 CLB (Rec: 05/05/19 17:36 CLB [id number]) Subjective Physical Therapy Visit Type Type Treatment Note Visit Start Time 14:10 Visit Stop Time 14:42 Total Visit Minutes 32 Number of DIRECTOR HR COMMUNICATIONS Visits 3 Physical Therapy Visit Comments Patient Comments pt agreeable to do PT; spouse present during PT session Therapy Pain Assessment Pain When Pain Assessed During Mobility Pain Present Pain Present Pain Reported Location right knee Intensity 6 Scale Used Numeric (1 - 10) Pain Management Techniques Apply Cold Re-positioning Timing of Activity with Medications M4 PT-IP Mobility and Gait Start: 05/04/19 12:45 Freq: NEEDED Status: Active Protocol: Document 05/05/19 14:10 CLB (Rec: 05/05/19 17:36 CLB [id number]) PT-Bed Mobility Assessment Supine to Sit Supine to Sit Moderate Assistance 1 Person Assistance Sit to Supine Sit to Supine Maximum Assistance 2 Person Assistance Scooting Scooting to Edge of Bed Maximum Assistance Scooting Up and Down in Bed Maximum Assistance PT-Transfer Assessment Sit to and From Stand Sit to and from Stand Minimal Assistance 1 Person Assistance Use of Upper Extremities Equipment Transfer Assistive Device Gait Belt Front Wheeled Walker Transfers Transfer Destination Bed Transfer Technique pt ambulated using FWW Transfer Ability Level of Assist Minimal Assistance 1 Person Assistance Use of Upper Extremities Comments Mobility Comments Pt contiues to require Mod-Max A for most bed mobility needing use of draw sheet to assist pt to EOB. Pt required Max A x2 sit-supine. Gait Assessment Gait Gait Assistance Required: Contact Guard Assist 1 Person Assist Distance (Feet) 24 Able to Maintain Weight Bearing Status Yes During Gait Assistive Devices Assistive Device Gait Belt Front Wheeled Walker Gait Deviations General Gait Pattern Antalgic Decreased Stride Length Decreased Feet Clearance Step-to Gait Factors Limiting Gait Function Factors Limiting Gait Function Decreased Activity Tolerance Decreased Strength Limited Range of Motion Pain Poor Balance Comments Gait Comments Pt with increased pain this afternoon with ambulation but was able to increase distance to ~24ft. Pt will need to walk ~50ft to front door then up a ramp and into house. M5 PT-IP Objective Assessments Start: 05/04/19 12:45 Freq: NEEDED Status: Active Protocol: Document 05/04/19 09:35 AB (Rec: 05/04/19 12:57 AB [id number]) Orientation Orientation/Cognition Level of Alertness Alert Orientation Name Place Situation Language Function Ability No Deficits Noted Safety Awareness Understands Safety Issues Memory Description No Deficits Noted Gross Range of Motion Lower Extremity ROM Assessment Right Impaired Impairments R knee flexion: ~ 70 deg R knee extension ~ 20 deg Strength Lower Extremity Strength Assessment Right Impaired Hip 3+/5 Knee 3-/5 Sensation Assessment Sensation Gross Sensation WNL Muscle Tone Muscle Tone WNL Yes M6 PT-IP Treatment Start: 05/04/19 12:45 Freq: NEEDED Status: Active Protocol: Document 05/05/19 14:10 CLB (Rec: 05/05/19 17:36 CLB [id number]) Physical Therapy Treatment Exercises Exercises Quad Sets Heel Slides Straight Leg Raises Short Arc Quads Other Treatments Other Treatment Performed Placed SCD's on at end of tx. M7 PT-IP Assessment and Plan Start: 05/04/19 12:45 Freq: NEEDED Status: Active Protocol: Document 05/05/19 14:10 CLB (Rec: 05/05/19 17:36 CLB [id number]) PT Summary Assessment and Plan Summary Impairments Pain ROM Strength Balance Coordination Sensation Bed Mobility Transfers Gait Activity Tolerance Assessment Summary Pt requires Mod-Max A for bed mobility and Min A to stand. Pt ambulated ~24ft but will need to ambulate ~50ft from car to front door using ramp. At this time pt is unable to ambulate that distance and will be unable to assist pt in and out of bed safely. Pt will require SNF rehab to increase mobility and strength before d/c home. Goals Bed Mobility Goal Independent Transfer Goal Independent Front Wheeled Walker Gait Goal Standby Assistance Front Wheel Walker Gait Distance 200 Days to Meet Goals 3 Frequency of Treatment Frequency Of Treatment Twice a Day Treatment Plan Physical Therapy Treatment Plan Bed Mobility Training Transfer Training Gait Training Therapeutic Exercise Balance Retraining Post Op Education Discharge Planning Hot or Cold Pack Neuromuscular Re-ed Coordination Retraining Manual Therapy Other Recommendations and Next Treatment progress gait and bed mobility Focus as able. Recommendations To Nursing Amount of Assist Needed 1 Person Assist Discharge Recommendations PT Discharge Recommendations SNF Rehab
--- NOTE | 2019-05-05 15:42 | CM.DPC ---
DCP/continued: Reviewed chart. Met with patient and spouse at bedside. Spouse reports that patient doing much better today and she feels that she will be able to manage patient at home when discharged. DESK CLERK spoke with LUIS FERNANDO/Ashley she reports that SNF continues to be recommended. However, she will see patient again this afternoon. SNF list has been provided to patient and spouse but as of today they prefer home. P: Pending. LEILA Ye
--- NOTE | 2019-05-05 21:42 | PC.NURSE ---
Jenelle shift note: Weaned off O2, placed on RA, maintaining sats 94-97%.
[2019-05-06 05:45] VITALS: BP 133/87; PULSE 89; RESP 18; TEMP 36.8; O2SAT 95
[2019-05-06 08:00] VITALS: BP 142/79; PULSE 93; RESP 17; TEMP 37; O2SAT 91
[2019-05-06 08:30] VITALS: O2SAT 92
[2019-05-06] MEDS: MELOXICAM 7.5 MG TABLET 15 MG PO (08:42)
[2019-05-06] MEDS: DOCUSATE 100 MG CAPSULE PO (08:42)
[2019-05-06] MEDS: ASPIRIN EC 81 MG TABLET PO (08:42)
[2019-05-06] MEDS: OXYCODONE IR 10 MG TABLET PO ×2 (08:42→12:20)
[2019-05-06] MEDS: SODIUM CHLORIDE 0.9% FLUSH 10 ML IV (08:43)
[2019-05-06] MEDS: ACETAMINOPHEN 325 MG TABLET 975 MG PO (08:49)
--- NOTE | 2019-05-06 10:21 | PM.DS.1 ---
History of Present Illness Date Patient Seen: 05/06/19 Time Patient Seen: 10:21 Chief complaint: [id number] Narrative: Hospital day 4, postop day 3 following right total knee arthroplasty by Dr. Ding. He has remained stable postoperatively. Did have some desaturation and was on nasal O2 until last night. Has been off O2 since then and stable. Continues to progress very slowly with PT and needing assist. His is not going to be able to assist him at home. Discussion has been done about SNF and patient is amenable to that if needed. He is scheduled to go to [facility] for postop PT. Discharge Providers Date of admission: 05/03/19 10:15 Discharge Date: 05/06/19 Primary care physician: Wes Stephen MD Consults: 05/03/19 17:46 Consult to Discharge Planning Routine Comment: Consult to Physical Therapy Evaluate & Treat Comment: Physician Instructions: postop TKA protocol Discharge provider: Temo Romano PA-C Summary Discharge Diagnosis: Status post right total knee arthroplasty Hospital Course: Patient brought to hospital on 05/03/2019 for above-noted surgery. Progress slowly with PT needing continue to assist for getting out of bed and with ambulation. PT did recommend SNF before going home patient's is not able to assist him at home. Planned for discharge to SNF Status at Discharge Cognitive/behavioral status at discharge: oriented Functional status at discharge: uses cane/walker Overall status at discharge: patient is progressing back to baseline Time Spent with Patient Less than 30 minutes Exam Vital Signs (past 8 hours): - 05/06/19 05:45 05/06/19 08:30 Temperature 98.3 F Pulse Rate 89 Respiratory Rate 18 Blood Pressure 133/87 Pulse Oximetry 95 92 Fraction of Inspired Oxygen 21 Oxygen Delivery Method Room Air Oxygen Flow Rate 0 Narrative Exam Narrative: Alert, oriented no acute distress resting in bed. Legs. Joseph wrap and Aquacel dressing to right knee in place without signs of infection or inflammation. Moderate swelling noted to the knee. Calf is soft and nontender. But good pulses distally. Objective Labs Result Diagrams: 05/04/19 05:30 Discharge Plan Discharge Plan Patient Disposition: SNF Under care of provider: Facility MD or PCP Transportation: Facility vehicle Discharge comment: Patient needs further therapy before going home following right total knee arthroplasty. I certify the postop hospital care home care is medically necessary on a continuing basis for any conditions for which he/ she received care during this hospitalization.: Yes The receiving facility has agreed to accept transfer and provide medical treatment.: Yes Discharge Med Rec/Prescriptions Prescriptions: New acetaminophen 325 mg Tablet 975 mg PO TID 30 Days Qty: 270 RF: 0 aspirin 81 mg Tablet,Delayed Release (Dr/Ec) 81 mg PO BID 42 Days Qty: 84 RF: 0 hydroxyzine pamoate 25 mg Capsule 25 mg PO Q6HR PRN (Reason: Nausea) Qty: 40 RF: 0 oxycodone 5 mg tablet 5 mg PO Q4-6H PRN (Reason: pain) Qty: 30 RF: 0 Continued meloxicam 15 mg Tablet 15 mg PO DAILY RF: 0 methotrexate sodium 25 mg/mL Solution 0.8 ml IM QWEEK RF: 0 Discontinued acetaminophen [Tylenol Arthritis Pain] 650 mg Tablet Extended Release 3 tab PO BID PRN (Reason: Pain) RF: 0 Follow up/Referrals: Wes Stephen MD [Primary Care Provider] - Vazquez Ding MD [Physician] - 3-5 Days Discharge Health Status Brief summary of current health status: Status post right total knee arthroplasty. Patient needing continued assist for transfers and ambulation. Multidrug resistant organism: No MDRO Provider Discharge Instructions Diet: Diet as Tolerated Activity: You may bear weight as tolerated on the right leg. Cold/Heat Therapy: Apply ice to the right knee for 15 minutes every hour as needed for pain control. Skin/Wound/Dressing Care Report to your healthcare provider any signs of infection, such as:: chills, fever, night sweats, increased pain, unusual drainage and unusual redness Dressing: Remove the Joseph wrap 3 days after surgery. You may then shower as normal. The leave the deeper dressing in place. If the central strip of the deeper dressing becomes saturated with either water or blood please call the office to have it changed. [facility] Reason for rehabilitation: Post-operative therapy Rehab type: Physical therapy and Occupational therapy Visit Report/Discharge Packet Instructions: How to Prevent Falls, DI for Postoperative Pain, Oxycodone, Hydroxyzine Stand Alone Forms: Surgery Discharge Visit Report Forms: Stroke Signs & Symptoms Discharge Data Primary Care Provider: Wes Stephen Attending Provider: Vazquez Ding Admit Date/Time: 05/03/19 10:15 Quality VTE Deep Vein Thrombosis/Pulmonary Embolism Present on Admission: No
--- NOTE | 2019-05-06 10:26 | P.DS_ITS ---
History of Present Illness Date Patient Seen: 05/06/19 Time Patient Seen: 10:21 Chief complaint: [id number] Narrative: Hospital day 4, postop day 3 following right total knee arthroplasty by Dr. Ding. He has remained stable postoperatively. Did have some desaturation and was on nasal O2 until last night. Has been off O2 since then and stable. Continues to progress very slowly with PT and needing assist. His is not going to be able to assist him at home. Discussion has been done a bout SNF and patient is amenable to that if needed. He is scheduled to go to [facility] for postop PT. Discharge Providers Date of admission: 05/03/19 10:15 Discharge Date: 05/06/19 Primary care physician: Wes Stephen MD Consults: 05/03/19 17:46 Consult to Discharge Planning Routine Comment: Consult to Physical Therapy Evaluate & Treat Comment: Physician Instructions: postop TKA protocol Discharge provider: Temo Romano PA-C Summary Discharge Diagnosis: Status post right total knee arthroplasty Hospital Course: Patient brought to hospital on 05/03/2019 for above-noted surg estefania. Progress slowly with PT needing continue to assist for getting out of bed and with ambulation. PT did recommend SNF before going home patient's is not able to assist him at home. Planned for discharge to SNF Status at Discharge Cognitive/behavioral status at discharge: oriented Functional status at discharge: uses cane/walker Overall status at discharge: patient is progressing back to baseline Time Spent with Patient Less than 30 minutes Exam Vital Signs (past 8 hours): - 05/06/19 05:45 05/06/19 08:30 Temperature 98.3 F Pulse Rate 89 Respiratory Rate 18 Blood Pressure 133/87 Pulse Oximetry 95 92 Fraction of Inspired Oxygen 21 Oxygen Delivery Method Room Air Oxygen Flow Rate 0 Narrative Exam Narrative: Alert, oriented no acute distress resting in bed. Legs. Joseph wrap and Aquacel dressing to right knee in place without signs of infection or inflammation. Moderate swelling noted to the knee. Calf is soft and nontender. But good pulses distally. Objective Labs Result Diagrams: 05/04/19 05:30 Discharge Plan Discharge Plan Patient Disposition: SNF Under care of provider: Facility MD or PCP Transportation: Facility vehicle Discharge comment: Patient needs further therapy before going home following right total knee arthroplasty. I certify the postop hospital longterm care is medically necessary on a continuing basis for any conditions for which he/ she received care during this hospitalization.: Yes The receiving facility has agreed to accept transfer and provide medical treatment.: Yes Discharge Med Rec/Prescriptions Prescriptions: New acetaminophen 325 mg Tablet 975 mg PO TID 30 Days Qty: 270 RF: 0 aspirin 81 mg Tablet,Delayed Release (Dr/Ec) 81 mg PO BID 42 Days Qty: 84 RF: 0 hydroxyzine pamoate 25 mg Capsule 25 mg PO Q6HR PRN (Reason: Nausea) Qty: 40 RF: 0 oxycodone 5 mg tablet 5 mg PO Q4-6H PRN (Reason: pain) Qty: 30 RF: 0 Continued meloxicam 15 mg Tablet 15 mg PO DAILY RF: 0 methotrexate sodium 25 mg/mL Solution 0.8 ml IM QWEEK RF: 0 Discontinued acetaminophen [Tylenol Arthritis Pain] 650 mg Tablet Extended Release 3 tab PO BID PRN (Reason: Pain) RF: 0 Follow up/Referrals: Wes Stephen MD [Primary Care Provider] - Vazquez Ding MD [Physician] - 3-5 Days Discharge Health Status Brief summary of current health status: Status post right total knee arthroplasty. Patient needing continued assist for transfers and ambulation. Multidrug resistant organism: No MDRO Provider Discharge Instructions Diet: Diet as Tolerated Activity: You may bear weight as tolerated on the right leg. Cold/Heat Therapy: Apply ice to the right knee for 15 minutes every hour as needed for pain control. Skin/Wound/Dressing Care Report to your healthcare provider any signs of infection, such as:: chills, fever, night sweats, increased pain, unusual drainage and unusual redness Dressing: Remove the Joseph wrap 3 days after surgery. You may then shower as normal. The leave the deeper dressing in place. If the central strip of the deeper dressing becomes saturated with either water or blood please call the office to have it changed. [facility] Reason for rehabilitation: Post-operative therapy Rehab type: Physical therapy and Occupational therapy Visit Report/Discharge Packet Instructions: How to Prevent Falls, DI for Postoperative Pain, Oxycodone, Hydroxyzine Stand Alone Forms: Surgery Discharge Visit Report Forms: Stroke Signs & Symptoms Discharge Data Primary Care Provider: Wes Stephen Attending Provider: Vazquez Ding Admit Date/Time: 05/03/19 10:15 Quality VTE Deep Vein Thrombosis/Pulmonary Embolism Present on Admission: No
--- NOTE | 2019-05-06 11:17 | PT.IPTN ---
Current Diagnoses Unilateral primary osteoarthritis, right knee (05/03/19) Presence of artificial knee joint, bilateral (05/03/19) Surgery Performed Operation Date: 05/03/19 12:30 Actual Procedures p Total Knee Arthroplasty Revision-Uni to total(Right) - Vazquez Ding MD Physical Therapy Treatment Note M2 PT-IP Current Condition Start: 05/04/19 12:45 Freq: NEEDED Status: Active Protocol: Document 05/04/19 09:35 AB (Rec: 05/04/19 12:57 AB [id number]) Physical Therapy Current Condition Current Condition Evaluation Date 05/04/19 Treatment Diagnosis s/p R TKA revision; difficulty in walking Onset Date 05/03/19 Weight Bearing Status Weight Bearing Status Weight Bear as Tolerated M3 PT-IP Subjective Start: 05/04/19 12:45 Freq: NEEDED Status: Active Protocol: Document 05/06/19 10:45 CLB (Rec: 05/06/19 11:17 CLB [id number]) Subjective Physical Therapy Visit Type Type Treatment Note Visit Start Time 10:45 Visit Stop Time 11:10 Total Visit Minutes 25 Number of WEB ENGINEER Visits 4 Physical Therapy Visit Comments Patient Comments pt agreeable to do PT; spouse present during PT session Therapy Pain Assessment Pain When Pain Assessed During Mobility Pain Present Pain Present Pain Reported Location right knee Intensity 4 Scale Used Numeric (1 - 10) Pain Management Techniques Apply Cold Re-positioning Timing of Activity with Medications M4 PT-IP Mobility and Gait Start: 05/04/19 12:45 Freq: NEEDED Status: Active Protocol: Document 05/06/19 10:45 CLB (Rec: 05/06/19 11:17 CLB [id number]) PT-Transfer Assessment Sit to and From Stand Sit to and from Stand Minimal Assistance 1 Person Assistance Use of Upper Extremities Equipment Transfer Assistive Device Gait Belt Front Wheeled Walker Transfers Transfer Destination Chair Transfer Technique pt ambulated using FWW Transfer Ability Level of Assist Minimal Assistance 1 Person Assistance Use of Upper Extremities Comments Mobility Comments Pt required Min A and cues for hand placement during stand- sit for safety and to slow descent. Gait Assessment Gait Gait Assistance Required: Contact Guard Assist 1 Person Assist Distance (Feet) 110 Able to Maintain Weight Bearing Status Yes During Gait Gait Deviations General Gait Pattern Antalgic Decreased Stride Length Decreased Feet Clearance Step-to Gait Factors Limiting Gait Function Factors Limiting Gait Function Decreased Activity Tolerance Decreased Strength Limited Range of Motion Pain Poor Balance Comments Gait Comments Pt able to increase gait to ~ 110ft with slow step to gait pattern. Pt c/o increased pain with ambulation and required standing rest breaks. M5 PT-IP Objective Assessments Start: 05/04/19 12:45 Freq: NEEDED Status: Active Protocol: Document 05/04/19 09:35 AB (Rec: 05/04/19 12:57 AB [id number]) Orientation Orientation/Cognition Level of Alertness Alert Orientation Name Place Situation Language Function Ability No Deficits Noted Safety Awareness Understands Safety Issues Memory Description No Deficits Noted Gross Range of Motion Lower Extremity ROM Assessment Right Impaired Impairments R knee flexion: ~ 70 deg R knee extension ~ 20 deg Strength Lower Extremity Strength Assessment Right Impaired Hip 3+/5 Knee 3-/5 Sensation Assessment Sensation Gross Sensation WNL Muscle Tone Muscle Tone WNL Yes M6 PT-IP Treatment Start: 05/04/19 12:45 Freq: NEEDED Status: Active Protocol: Document 05/06/19 10:45 CLB (Rec: 05/06/19 11:17 CLB [id number]) Physical Therapy Treatment Exercises Exercises Ankle Pumps Quad Sets Heel Slides Short Arc Quads M7 PT-IP Assessment and Plan Start: 05/04/19 12:45 Freq: NEEDED Status: Active Protocol: Document 05/06/19 10:45 CLB (Rec: 05/06/19 11:17 CLB [id number]) PT Summary Assessment and Plan Summary Impairments Pain ROM Strength Balance Coordination Sensation Bed Mobility Transfers Gait Activity Tolerance Assessment Summary Pt improved with gait distance and quality. Pt continues to require Min A sit<>stand and cues for hand placement for safety and slow descent. Goals Bed Mobility Goal Independent Transfer Goal Independent Front Wheeled Walker Gait Goal Standby Assistance Front Wheel Walker Gait Distance 200 Frequency of Treatment Frequency Of Treatment Twice a Day Treatment Plan Physical Therapy Treatment Plan Bed Mobility Training Transfer Training Gait Training Therapeutic Exercise Balance Retraining Post Op Education Discharge Planning Hot or Cold Pack Neuromuscular Re-ed Coordination Retraining Manual Therapy Other Recommendations and Next Treatment progress gait and bed mobility Focus as able. Recommendations To Nursing Amount of Assist Needed 1 Person Assist Discharge Recommendations PT Discharge Recommendations SNF Rehab
--- NOTE | 2019-05-06 11:41 | CM.DPNOTE ---
Addendum entered by LEILA Mtz 05/06/19 13:32: Anabela at [facility] has accepted pt for admission today. [facility] arranged to p/u at approx 1330, pt/spouse and RN aware and agreeable to this plan. Requested that Urm[facility] fax completed PAS[facility], completed DC summary and completed and signed med list/ Rx to [facility]. P: DC to [facility] via w/c van today. JW Original Note: DCP Cont: Reviewed chart. ANTHONY Romano completing DC order to SNF this morning, pt requires a SNF and is agreeable to such. Met w/pt and his , [facility]. Requested that [facility] Urmila fax referral to these facilities, this [employer] hopeful DC to SNF can be coordinated today, POD#3. Following closely for coordination of safe DCP. LEILA Mtz
--- NOTE | 2019-05-06 14:52 | PC.NURSE ---
Pt discharged in WC, awake, alert, oriented. NAD. VSS. Accompanied by spouse and facility assistant. All relevant paperwork included. All personal effects with pt.
== END 2019-05-06 14:15 | DRG 467 ==
PROVIDERS: Admitting Provider Orthopaedic Surgery; PCP Family Medicine; Visit Provider Orthopaedic Surgery
PROC: 0SRC0J9 Replacement of Right Knee Joint with Synthetic Substitute, Cemented, Open Approach (ICD-10-PCS; principal; 2019-05-03 12:30)
DX: M17.11 Unilateral primary osteoarthritis, right knee (principal); T84.092A Other mechanical complication of internal right knee prosthesis, initial encounter; E66.2 Morbid (severe) obesity with alveolar hypoventilation; Z68.41 Body mass index [BMI] 40.0-44.9, adult; M06.9 Rheumatoid arthritis, unspecified; Z96.642 Presence of left artificial hip joint; M62.81 Muscle weakness (generalized)
CPT/HCPCS: 36415; 64450; 73560; 85014; 85018; 94760; 94762; 97110; 97116; 97161; 97530; C1776; C9290; J1100; J1170; J2250; J2270; J2405; J2704; J3010

== ENCOUNTER 2019-05-22 14:21 | Emergency (ER) | payer MEDICARE, OTHER, SELFPAY ==
[2019-05-03 18:08] VITALS: BMI 40.3
--- NOTE | 2019-05-22 14:34 | ED.GENADULT ---
HPI - General Adult General Chief complaint: Extremity Injury, Lower Stated complaint: Fell, knee replacement 2 wks ago. Time Seen by Provider: 05/22/19 14:30 Source: patient Mode of arrival: wheelchair Limitations: no limitations History of Present Illness HPI narrative: 68-year-old male 2 weeks status post right total knee arthroplasty here for evaluation of an injury to his knee. Patient states that he fell. He is not exactly sure how he landed. He thinks that he landed on his left side however since the fall he has had bleeding from the incision of his right knee. He has had no change in pain. Related Data Home Medications Medication Instructions Recorded Confirmed meloxicam 15 mg PO DAILY 04/15/19 05/03/19 methotrexate sodium 0.8 ml IM QWEEK 04/15/19 05/03/19 Previous Rx's Medication Instructions Recorded acetaminophen 975 mg PO TID 30 Days #270 tab 05/04/19 aspirin 81 mg PO BID 42 Days #84 tab 05/04/19 hydroxyzine pamoate 25 mg PO Q6HR PRN #40 cap 05/04/19 oxycodone 5 mg PO Q4-6H PRN #30 tab 05/06/19 Allergies Allergy/AdvReac Type Severity Reaction Status Date / Time chlorhexidine Allergy Severe Rash Verified 05/22/19 14:39 codeine AdvReac Intermediate Nausea, Verified 05/22/19 14:39 vomiting gold Au 198 AdvReac Intermediate My skin Verified 05/22/19 14:39 will dissolve a gold watch in 3 years if left on Review of Systems Constitutional Denies fever(s) and Denies frequent falls ENT Ears, Nose, Mouth, and Throat: Denies disequilibrium Musculoskeletal Comments: Bleeding from the incision right knee Integumentary/Breasts Comments: Bleeding from the incision of the right knee Neurologic Denies frequent falls and Denies disequilibrium Hematologic/Lymphatic Denies easy bruising [facility] Medical History Easy bruisability (Acute) Hearing impaired (Acute) History of prosthetic unicompartmental arthroplasty of both knees (Acute) Numbness (Acute) Skin cancer (Acute ~02/2019) Surgical History (Updated 04/15/19 @ 14:22 by Kortney Wray RN) History of total left hip arthroplasty (Acute ~2011) Hx of tonsillectomy (Acute) Social History household members: spouse Smoking Status: Never smoker alcohol intake: current Social History household members: spouse Smoking Status: Never smoker alcohol intake: current Exam Initial Vital Signs Initial Vital Signs: Vital Signs Temperature 98.3 F 05/22/19 14:35 Pulse Rate 82 05/22/19 14:35 Respiratory Rate 18 05/22/19 14:35 Blood Pressure 134/92 H 05/22/19 14:35 Pulse Oximetry 97 05/22/19 14:35 Resp Effort & Inspection: normal respiratory effort Skin Other: Surgical incision anterior portion of the right knee appears well. There is 1 very small area on the proximal aspect of the incision that is oozing blood. Neuro General: alert and awake Cognition: normal cognition Speech: speech normal Extrem General: normal to inspection and capillary refill normal Psych Appearance: grossly normal and well kempt Course Orders Ordered: ED Orders 05/22/19 14:34 XR knee RT 3V Stat Vital Signs - 8 hr 05/22/19 14:35 Temperature 98.3 F Pulse Rate 82 Respiratory Rate 18 Blood Pressure 134/92 H Pulse Oximetry 97 Medical Decision Making Imaging Data Knee x-ray: Radiologist's impression: [address] [address] XRay Report Signed Patient: Nader Murry VMR#: [id number] : 9Acct:[id number] Age/Sex: 68 / MDate of Service: 05/22/19 Loc: ED Accession Number: [id number] Procedure: XR knee RT 3V Ordering Provider: Kirt Stovall D.O. PROCEDURE: XR KNEE RT 3V INDICATIONS: Knee replacement 2 weeks ago with fall TECHNIQUE: 3 views of the knee were acquired. [facility], 15:58. FINDINGS: Bones: No acute fractures or dislocations. Bone fragments are seen medial to the tibial plateau, which are stable compared to the prior study dated 05/03/19 and regarded to be postoperative. No suspicious bony lesions. Right knee arthroplasty hardware is seen. No findings of hardware failure or hardware loosening are seen. Soft tissues: There is a moderate joint effusion. No suspicious soft tissue calcifications. IMPRESSION: Unremarkable right knee arthroplasty hardware. No acute fractures are seen. If there is point tenderness (or other clinical suspicion for a fracture not seen on these images) then a dedicated CT could be considered for further evaluation, as clinically appropriate. Moderate joint effusion. Dictated by: Poncho Bergman M.D. on 05/22/2019 at 14:18 Approved by: Poncho Bergman M.D. on 05/22/2019 at 14:20 [facility] Narrative Medical decision making narrative: Knee x-ray shows fracture. He does have a small opening at the proximal aspect of the incision that is draining blood. A pressure dressing was placed over this area with Steri-Strips and Mastisol. Patient was given return precautions and follow-up instructions. Will hold on further workup for now. He expressed understanding and agreement plan. Discharge Plan Departure Patient Disposition: Home Clinical Impression: Dehiscence of wound Fall Qualifiers: Encounter type: initial encounter Qualified Code(s): W19.XXXA - Unspecified fall, initial encounter Activity Restrictions/Additional Instructions: Keep the bandage over the wound and replace it as needed like we discussed. I would expect some oozing from the wound over the next day or so but if it starts to bleeding does not stop please return to the emergency department. Contact your orthopedic provider on Friday for a follow-up. Prescriptions: No Action meloxicam 15 mg Tablet 15 mg PO DAILY RF: 0 methotrexate sodium 25 mg/mL Solution 0.8 ml IM QWEEK RF: 0 acetaminophen 325 mg Tablet 975 mg PO TID 30 Days Qty: 270 RF: 0 aspirin 81 mg Tablet,Delayed Release (Dr/Ec) 81 mg PO BID 42 Days Qty: 84 RF: 0 hydroxyzine pamoate 25 mg Capsule 25 mg PO Q6HR PRN (Reason: Nausea) Qty: 40 RF: 0 oxycodone 5 mg tablet 5 mg PO Q4-6H PRN (Reason: pain) Qty: 30 RF: 0 Referrals: Wes Stephen MD [Primary Care Provider] -
[2019-05-22 14:35] VITALS: BP 134/92; PULSE 82; RESP 18; TEMP 36.8; O2SAT 97; BMI 39.4
[2019-05-22 15:49] VITALS: BP 123/80; PULSE 82; RESP 18; TEMP 36.9; O2SAT 99
== END 2019-05-22 15:50 | disposition home or self-care (01) ==
PROVIDERS: Emergency Provider Emergency Medicine; PCP Family Medicine
DX: T81.30XA Disruption of wound, unspecified, initial encounter (principal); W19.XXXA Unspecified fall, initial encounter
CPT/HCPCS: 73562; 99282; 99283

== ENCOUNTER 2019-05-25 13:58 | Day surgery (SDC) | payer MEDICARE, OTHER, SELFPAY ==
[2019-05-03 18:08] VITALS: BMI 40.3
[2019-05-25] VITALS (17 sets, daily range): BP systolic 133–181; BP diastolic 79–98; PULSE 70–91; RESP 10–18; TEMP 36.1–37.6; O2SAT 93–97; BMI 41.4
--- NOTE | 2019-05-25 14:48 | PM.PREOP ---
Pre-operative Note Interval Note History & Physical reviewed/Exam performed by Physician: Yes Changes to H&P: No
[2019-05-25] MEDS: LACTATED RINGERS 1,000 ML 42 ML IV (15:12)
[2019-05-25] MEDS: CEFAZOLIN 2 GM/100 ML FROZ.PIGGY IV (15:52)
--- NOTE | 2019-05-25 15:55 | SUR.OPER ---
Supine on padded OR bed, head on pillow, arms secured on padded arm boards at <90 degrees abduction, legs uncrossed, safety belt at thigh, tape over blanket over lower legs. Sandbag used for knee support, taped to bed.
[2019-05-25] MEDS: HYDROMORPHONE 2 MG INJ 0.5 MG IV ×4 (17:05→17:20)
--- NOTE | 2019-05-25 17:10 | P.OP_ITS ---
Operative Date/Time/Diagnoses Date of procedure: 05/25/19 Time of procedure: 16:45 Pre-op diagnosis: Continuing drainage after right total knee revision Post-op diagnosis: other (1. Quadriceps rupture after fall postoperatively, right knee 2. Continuing drainage after right total knee revision) Procedure & Clinicians Procedure: 1. Open repair of quadriceps tendon rupture 2. Incision and drainage of right total knee replacement Same procedure as scheduled: No (Repair of quadriceps tendon was not anticipated preoperatively) Indications: The patient is a 68-year-old gentleman who 2 weeks ago underwent a right total knee replacement, revising a unicompartmental knee replacement to a total knee replacement.. He had mildly increased drainage from his wound postoperatively and then suffered a fall when his knee gave way out from under him. He then had a significant increase in his drainage. This did not taper off and I saw him yesterday and elected to take him to the operating room for incision and drainage. He was able to extend his leg against gravity although weakly. This was thought to be secondary to pain. He agreed to surgery after discussion the risks benefits and alternatives. Risks discussed included but were not limited to: Need for long-term antibiotics, potential need to eventually revise the knee in a stage revision for infection, stiffness, nerve damage, deep venous thrombosis, pulmonary embolism, stroke, myocardial infarction, permanent paralysis and . Surgeon: Vazquez Ding Click Yes if Unassisted: Yes Anesthesia Type: General Operative Notes Findings: Rupture of the quadriceps tendon. This was in a Z shape with a proximal extension into the vastus lateralis, inclusion of the surgical closure through the quadriceps tendon itself and then extension and distally into the vastus medialis. Closure Type: primary Specimen(s): other (Culture from the joint) Prosthetic devices, grafts, tissues, transplants, or devices: None. Estimated Blood Loss (mL): 100 Blood products transfused: none Tourniquet time (min): 24 Procedure in detail: The patient was seen in the preoperative area we confirmed the right knee was the operative site. This was marked with my initials. He was taken to the operating room placed on the operating room table in a supine position where to want induction with general anesthetic. Following the onset of satisfactory general anesthesia, his right leg was encircled with a tourniquet about the proximal thigh, his dressing was removed and the leg was prepared from the toes to the tourniquet with Betadine in the usual fashion. The leg was maintained in an elevated position to exsanguinated and the tourniquet inflated to 250 mm of mercury. Initially I opened the proximal 4 cm of wound where the drainage had been concentrated. It became evident that there was a significant subcutaneous hematoma and when this was evacuated I could place my fingers directly into the suprapatellar pouch. The entire total knee wound was then opened and flaps developed to examine the extensor mechanism. A quadriceps rupture as described above was discovered. Cultures were taken from the joint. The patient was then administered IV antibiotics and the tourniquet deflated to allow them to circulate. After the antibiotics went in, the tourniquet was inflated once again. The knee in surrounding tissues were irrigated with 3 L of pulsatile lavage. There was no purulence, all drainage appeared to be old blood. The quadriceps was repaired with 1. Ethibond [id number] sutures where the quadriceps tendon repair had been ruptured and with 0 Vicryl into the extensions into the vastus lateralis and vastus medialis. There was no tension on the repair until 30? of flexion. The wound was once again irrigated. The tourniquet was deflated and hemostasis obtained with electrocautery. Subcutaneous closure was obtained with 3 0 Vicryl, the skin was closed with diana. A Khloe suction drainage dressing was applied. The patient's leg was placed in a knee immobilizer to protect the quadriceps repair. He was then transferred to the recovery room in good condition having tolerated the procedure well. Complications: none Condition: stable Disposition: PACU Plan for aftercare: The patient will be maintained in the hospital to receive IV antibiotics overnight. He will then likely be discharged on oral cephalosporins. His culture results will be followed in clinic. If the c ultures return positive he will receive 6 weeks IV antibiotics. He will be maintained in the knee immobilizer for 2 weeks and then will be placed in a hinged knee brace with 0-30 degrees range of motion. This will be increased by 30? every 2 weeks until 90? is reached. The brace will then be discontinued.
--- NOTE | 2019-05-25 17:19 | SUR.PHASEI ---
scanner not functioning and two computer lost connectivity- manul id and manul dose of medications after hour case
[2019-05-25] MEDS: LACTATED RINGERS 1,000 ML 125 ML IV (19:19)
[2019-05-25] MEDS: ACETAMINOPHEN 325 MG TABLET 975 MG PO (21:16)
[2019-05-25] MEDS: ASPIRIN EC 81 MG TABLET PO (21:17)
[2019-05-25] MEDS: DOCUSATE 100 MG CAPSULE PO (21:17)
[2019-05-25] MEDS: OXYCODONE IR 5 MG TABLET PO (22:44)
[2019-05-26] MEDS: CEFAZOLIN 2 GM/100 ML FROZ.PIGGY IV ×2 (00:18→08:03)
[2019-05-26] MEDS: HYDROMORPHONE 0.5 MG INJ IV (00:29)
[2019-05-26 04:26] VITALS: BP 131/65; PULSE 76; RESP 16; TEMP 36.7; O2SAT 96
[2019-05-26] MEDS: OXYCODONE IR 5 MG TABLET PO ×2 (05:05→09:28)
[2019-05-26 06:42] LABS: Hematocrit 32.9 % (41-53); Hemoglobin 11.2 g/dL (13.5-17.5)
--- NOTE | 2019-05-26 07:33 | PM.DS.1 ---
History of Present Illness Date Patient Seen: 05/26/19 Time Patient Seen: 07:33 Chief complaint: [id number] I&D Narrative: The patient's history and physical is documented in the chart in a previously completed note. Please refer to that note for this information. Discharge Providers Discharge Date: 05/26/19 Primary care physician: Wes Stephen MD Consults: 05/25/19 19:04 Consult to Discharge Planning Routine Comment: Consult to Physical Therapy Evaluate & Treat Comment: Physician Instructions: WBAT in knee immobilizer Consult to Respiratory Therapy Evaluate & Treat Comment: Physician Instructions: Evaluate and treat Discharge provider: Vazquez Ding MD Summary Discharge Diagnosis: 1. Quadriceps rupture, right knee 2. Drainage after total knee replacement 3. Status post total knee replacement 4. Post hemorrhagic anemia Hospital Course: The patient was admitted to the hospital and taken directly to the operating room on May 25, 2019. He underwent an exploration of his wound for continued drainage postoperatively. It was discovered he had a large hematoma and a quadriceps rupture, likely from a fall that it happened shortly after surgery. His quadriceps rupture was repaired. Cultures were sent to rule out infection. Cultures are pending at this time. The patient is allowed to weight bear on his knee immobilizer. At the time of this dictation the plan is for discharge with a knee immobilizer and oral antibiotics with outpatient follow-up to follow the results of the cultures. Status at Discharge Cognitive/behavioral status at discharge: oriented Functional status at discharge: uses cane/walker Overall status at discharge: patient is progressing back to baseline Time Spent with Patient Less than 30 minutes Exam Vital Signs (past 8 hours): - 05/25/19 23:55 05/26/19 04:26 Temperature 99.6 F 98.0 F Pulse Rate 78 76 Respiratory Rate 17 16 Blood Pressure 146/80 H 131/65 Pulse Oximetry 97 96 Oxygen Delivery Method Nasal Cannula Oxygen Flow Rate 2 Narrative Exam Narrative: Knee immobilizer is in place on the right. When inspected the dressing is dry with no drainage. There is no surrounding erythema. Calf is soft. Light touch and motion are intact in the right lower extremity. Objective Labs Result Diagrams: 05/26/19 06:15 Labs: Laboratory Results - last 24 hr 05/26/19 06:15 Hgb 11.2 L Hct 32.9 L Discharge Plan Discharge Plan Patient Disposition: Home Discharge Med Rec/Prescriptions Prescriptions: New cephalexin 250 mg Capsule 500 mg PO QID Qty: 30 RF: 0 Continued methotrexate sodium 25 mg/mL Solution 0.8 ml IM QWEEK RF: 0 acetaminophen 325 mg Tablet 975 mg PO TID 30 Days Qty: 270 RF: 0 aspirin 81 mg Tablet,Delayed Release (Dr/Ec) 81 mg PO BID 42 Days Qty: 84 RF: 0 hydroxyzine pamoate 25 mg Capsule 25 mg PO Q6HR PRN (Reason: Nausea) Qty: 40 RF: 0 oxycodone 5 mg tablet 5 mg PO Q4-6H PRN (Reason: pain) Qty: 30 RF: 0 Discontinued meloxicam 15 mg Tablet 15 mg PO DAILY RF: 0 Follow up/Referrals: Wes Stephen MD [Primary Care Provider] - Vazquez Ding MD [Physician] - 2 Weeks Discharge Orders: Discharge (Order); Ordered 05/26/19 Ordered By: Vazquez Ding Provider Discharge Instructions Diet: Diet as Tolerated Activity: You may walk as tolerated as long as the knee immobilizer is in place. Skin/Wound/Dressing Care Report to your healthcare provider any signs of infection, such as:: chills, fever, night sweats, increased pain, unusual drainage and unusual redness Dressing: Leave the current dressing in place until follow-up. Keep the dressing clean and dry. Visit Report/Discharge Packet Instructions: DI for Incision and Drainage of a Joint Stand Alone Forms: Surgery Discharge Discharge Data Primary Care Provider: Wes Stephen Attending Provider: Vazquez Ding
[2019-05-26 08:00] VITALS: BP 131/64; PULSE 76; RESP 16; TEMP 36.8; O2SAT 96
[2019-05-26] MEDS: ACETAMINOPHEN 325 MG TABLET 975 MG PO (09:13)
[2019-05-26] MEDS: DOCUSATE 100 MG CAPSULE PO (09:14)
[2019-05-26] MEDS: ASPIRIN EC 81 MG TABLET PO (09:14)
[2019-05-26] MEDS: MELOXICAM 7.5 MG TABLET 15 MG PO (09:15)
[2019-05-26] MEDS: POLYETHYLENE GLYCOL 3350 17 GM POWD.PACK PO (09:15)
--- NOTE | 2019-05-26 09:40 | PT.IIE ---
Current Diagnoses Infection following a procedure, other surgical site, initial encounter (05/25/19) Presence of right artificial knee joint (05/25/19) Surgery Performed Operation Date: 05/25/19 15:45 Actual Procedures p Incision and Drainage Wound/Extremity and repair of quadraceps(Right) - Vazquez Ding MD Surgical History (Last Updated 04/15/19 @ 14:22 by Kortney Wray RN) History of total left hip arthroplasty (Acute ~2011) Hx of tonsillectomy (Acute) Medical History (Last Reviewed 05/22/19 @ 15:18 by Kirt Stovall DO) Easy bruisability (Acute) Hearing impaired (Acute) History of prosthetic unicompartmental arthroplasty of both knees (Acute) Numbness (Acute) Skin cancer (Acute ~02/2019) Physical Therapy Inpatient Evaluation/Re-Eval M1 PT/OT-IP Prior Functional Status Start: 05/26/19 08:35 Freq: NEEDED Status: Discharge Protocol: Document 05/26/19 09:40 AB (Rec: 05/26/19 13:00 AB [email or web address]) Medical Review Prior Functional Status Medical History Reviewed Yes Diet/Fluid Consistency Regular Communication able to make needs known Mobility and Gait pt stated that he is modified independent with all mobilities and ambulation using FWW or SPC Social History Household Members spouse Living Arrangements House Number of Floors (Floors) One Floor Number of Stairs To Enter/Railing? ramp to enter Home Environment High Toilet Tub/Shower Ramp Home Equipment Front Wheel Walker Straight Cane Shower Seat with Backrest Hand Held Shower Grab Bars In Shower M2 PT-IP Current Condition Start: 05/26/19 08:35 Freq: NEEDED Status: Discharge Protocol: Document 05/26/19 09:40 AB (Rec: 05/26/19 13:00 AB [email or web address]) Physical Therapy Current Condition Current Condition Evaluation Date 05/26/19 Treatment Diagnosis quadriceps rupture s/p repair; R TKA revision; difficulty in walking Onset Date 05/25/19 Precautions Brace R knee immobilizer Weight Bearing Status Weight Bearing Status Weight Bear as Tolerated M3 PT-IP Subjective Start: 05/26/19 08:35 Freq: NEEDED Status: Discharge Protocol: Document 05/26/19 09:40 AB (Rec: 05/26/19 13:00 AB [email or web address]) Subjective Physical Therapy Visit Type Type Initial Evaluation Visit Start Time 09:40 Visit Stop Time 10:20 Total Visit Minutes 40 Number of INSULATION BLOWER Visits 0 Physical Therapy Visit Comments Patient Comments pt agreeable to do PT Therapy Pain Assessment Pain When Pain Assessed At Rest Pain Present Pain Present Pain Reported Location right knee Intensity 3 Scale Used Numeric (1 - 10) Pain Management Techniques Re-positioning Timing of Activity with Medications M4 PT-IP Mobility and Gait Start: 05/26/19 08:35 Freq: NEEDED Status: Discharge Protocol: Document 05/26/19 09:40 AB (Rec: 05/26/19 13:00 AB [email or web address]) PT-Bed Mobility Assessment Supine to Sit Supine to Sit Standby Assistance Scooting Scooting to Edge of Bed Standby Assistance PT-Transfer Assessment Sit to and From Stand Sit to and from Stand Standby Assistance 1 Person Assistance Equipment Transfer Assistive Device Gait Belt Front Wheeled Walker Orthotic/Prosthetic Devices or Brace: No Transfers Transfer Destination Chair Transfer Technique pt ambulated using FWW Transfer Ability Level of Assist Standby Assistance 1 Person Assistance Gait Assessment Gait Gait Assistance Required: Standby Assistance Contact Guard Assist Distance (Feet) 75 Able to Maintain Weight Bearing Status Yes During Gait Assistive Devices Assistive Device Gait Belt Front Wheeled Walker Orthotic/Prosthetic Devices or Brace: Yes Gait Deviations General Gait Pattern Antalgic Decreased Stride Length Decreased Feet Clearance Step-to Gait Factors Limiting Gait Function Factors Limiting Gait Function Decreased Activity Tolerance Decreased Strength Limited Range of Motion Pain Poor Balance Poor Safety Awareness Comments Gait Comments pt with R knee immobilizer on. completed sit to stand SBA and ambulated ~ 75 ft using FWW SBA to occasional CGA and cues for safety. spouse in room during PT session. PT-Balance Assessment Sitting Balance and Reactions Static Sitting Balance Ability Good Dynamic Sitting Balance Ability Good Standing Balance and Reactions Static Standing Balance Ability Fair Dynamic Standing Balance Ability Fair Device Used FWW M5 PT-IP Objective Assessments Start: 05/26/19 08:35 Freq: NEEDED Status: Discharge Protocol: Document 05/26/19 09:40 AB (Rec: 05/26/19 13:00 AB [email or web address]) Orientation Orientation/Cognition Level of Alertness Alert Orientation Name Age Birthday Month Date Year Day of Week Place Situation Language Function Ability No Deficits Noted Safety Awareness Understands Safety Issues Memory Description No Deficits Noted Gross Range of Motion Lower Extremity ROM Impairments R knee on immobilizer Strength Lower Extremity Strength Assessment Right Impaired Sensation Assessment Sensation Gross Sensation WNL Muscle Tone Muscle Tone WNL Yes M6 PT-IP Treatment Start: 05/26/19 08:35 Freq: NEEDED Status: Discharge Protocol: Document 05/26/19 09:40 AB (Rec: 05/26/19 13:00 AB [email or web address]) Physical Therapy Treatment Exercises Exercises Ankle Pumps Education Education Provided Precautions Weight Bearing Status Safety Brace Education [place] Other Treatments Other Treatment Performed educated pt and spouse regarding precautions and how to management knee immobilizer . M7 PT-IP Assessment and Plan Start: 05/26/19 08:35 Freq: NEEDED Status: Discharge Protocol: Document 05/26/19 09:40 AB (Rec: 05/26/19 13:00 AB [email or web address]) PT Summary Assessment and Plan Potential Rehabilitation Potential Good Status of Condition at Evaluation Stable Summary Impairments Pain ROM Strength Balance Coordination Sensation Tone Cognition Bed Mobility Transfers Gait Activity Tolerance Assessment Summary pt requiring SBA to CGA with mobility. spouse will assist pt at home. pt and spouse's concern is car transfers due to RLE is on an immobilizer. will conduct car transfer traiing prior to d/c. Goals Bed Mobility Goal Independent Transfer Goal Independent Front Wheeled Walker Gait Goal Independent Front Wheel Walker Gait Distance 200 Days to Meet Goals 3 Frequency of Treatment Frequency Of Treatment Twice a Day Treatment Plan Physical Therapy Treatment Plan Bed Mobility Training Transfer Training Gait Training Therapeutic Exercise Balance Retraining Post Op Education Discharge Planning Hot or Cold Pack Neuromuscular Re-ed Coordination Retraining Manual Therapy Recommendations To Nursing Amount of Assist Needed 1 Person Assist Discharge Recommendations PT Discharge Recommendations Home with Assistance Outpatient PT
--- NOTE | 2019-05-26 10:45 | PC.NURSE ---
Addendum entered by Amanda Brooks R.N. 05/26/19 11:59: DC - SL removed, pt dressed, wearing immobilizer, all belongings, including cell phone, clothing, shoes gathered by spouse, perinatal social worker transferred to and Mariaelena PT assisted pt into car successfully, dc'd to home with paperwork, script, po abx dose admin prior to leaving. Original Note: AM NOTE - pt is alert, 02 sat 94% 2l, removed this am and sat remained 93%, uses IS to 2000, r knee with immobilizer, 2+ pedal, can wiggle toes, juana w/green light flashing, pain 4 on scale 0/10, managed with oxycodone, + bt, no nausea, discussed constipation and narcotics, oxycodone filled prior to surgery, given script for po abx, after breakfast, given 5mg po oxycodone, phys therapy in and as pt and spouse have concerns regarding pt able to fit in her sedan, dressed, ivf removed and PT will assist to car.
[2019-05-26] MEDS: cephALEXin 250 MG CAPSULE 500 MG PO (11:33)
--- NOTE | 2019-05-26 11:40 | PT.IPTN ---
Current Diagnoses Infection following a procedure, other surgical site, initial encounter (05/25/19) Presence of right artificial knee joint (05/25/19) Surgery Performed Operation Date: 05/25/19 15:45 Actual Procedures p Incision and Drainage Wound/Extremity and repair of quadraceps(Right) - Vazquez Ding MD Physical Therapy Treatment Note M2 PT-IP Current Condition Start: 05/26/19 08:35 Freq: NEEDED Status: Discharge Protocol: Document 05/26/19 09:40 AB (Rec: 05/26/19 13:00 AB [email or web address]) Physical Therapy Current Condition Current Condition Evaluation Date 05/26/19 Treatment Diagnosis quadriceps rupture s/p repair; R TKA revision; difficulty in walking Onset Date 05/25/19 Precautions Brace R knee immobilizer Weight Bearing Status Weight Bearing Status Weight Bear as Tolerated M3 PT-IP Subjective Start: 05/26/19 08:35 Freq: NEEDED Status: Discharge Protocol: Document 05/26/19 11:40 AB (Rec: 05/26/19 13:07 AB [email or web address]) Subjective Physical Therapy Visit Type Type Treatment Note Visit Start Time 11:40 Visit Stop Time 11:55 Total Visit Minutes 15 Number of APPLIANCE WORKER Visits 0 Physical Therapy Visit Comments Patient Comments pt and spouse ready for car transfer training M4 PT-IP Mobility and Gait Start: 05/26/19 08:35 Freq: NEEDED Status: Discharge Protocol: Document 05/26/19 11:40 AB (Rec: 05/26/19 13:07 AB [email or web address]) PT-Transfer Assessment Sit to and From Stand Sit to and from Stand Standby Assistance Equipment Transfer Assistive Device Gait Belt Front Wheeled Walker Orthotic/Prosthetic Devices or Brace: Yes Gait Assessment Gait Gait Assistance Required: Standby Assistance Distance (Feet) 20 Assistive Devices Assistive Device Gait Belt Front Wheeled Walker Orthotic/Prosthetic Devices or Brace: Yes Gait Deviations General Gait Pattern Antalgic Decreased Stride Length Decreased Feet Clearance Step-to Gait Factors Limiting Gait Function Factors Limiting Gait Function Decreased Activity Tolerance Limited Range of Motion Pain Poor Balance Comments Gait Comments pt completed sit to stand from chair SBA and ambulated using FWW ~ 20 ft to w/c SBA. NAC assisted pt down to parking lot area. pt completed sit to stand from w/c SBA and ambulated towards the car SBA. pt was able to complete car transfers with min A and cues for positioning. educated spouse and pt on how to safely complete car transfers and understood. pt does not want to do transfer training again. M5 PT-IP Objective Assessments Start: 05/26/19 08:35 Freq: NEEDED Status: Discharge Protocol: Document 05/26/19 09:40 AB (Rec: 05/26/19 13:00 AB [email or web address]) Orientation Orientation/Cognition Level of Alertness Alert Orientation Name Age Birthday Month Date Year Day of Week Place Situation Language Function Ability No Deficits Noted Safety Awareness Understands Safety Issues Memory Description No Deficits Noted Gross Range of Motion Lower Extremity ROM Impairments R knee on immobilizer Strength Lower Extremity Strength Assessment Right Impaired Sensation Assessment Sensation Gross Sensation WNL Muscle Tone Muscle Tone WNL Yes M6 PT-IP Treatment Start: 05/26/19 08:35 Freq: NEEDED Status: Discharge Protocol: Document 05/26/19 09:40 AB (Rec: 05/26/19 13:00 AB [email or web address]) Physical Therapy Treatment Exercises Exercises Ankle Pumps Education Education Provided Precautions Weight Bearing Status Safety Brace Education [place] Other Treatments Other Treatment Performed educated pt and spouse regarding precautions and how to management knee immobilizer . M7 PT-IP Assessment and Plan Start: 05/26/19 08:35 Freq: NEEDED Status: Discharge Protocol: Document 05/26/19 11:40 AB (Rec: 05/26/19 13:07 AB [email or web address]) PT Summary Assessment and Plan Potential Rehabilitation Potential Good Summary Impairments Pain ROM Strength Balance Bed Mobility Transfers Gait Activity Tolerance Progress Towards Goals Progressing Toward Goals Assessment Summary pt requiring SBA with mobility . educated pt's spouse on how to cue and assist pt. car transfer also completed and pt was able to safely get into the car. pt went home with spouse to assist him. Goals Bed Mobility Goal Independent Transfer Goal Independent Front Wheeled Walker Gait Goal Independent Front Wheel Walker Gait Distance 200 Days to Meet Goals 3 Frequency of Treatment Frequency Of Treatment Twice a Day Treatment Plan Physical Therapy Treatment Plan Bed Mobility Training Transfer Training Gait Training Therapeutic Exercise Balance Retraining Post Op Education Discharge Planning Hot or Cold Pack Neuromuscular Re-ed Coordination Retraining Manual Therapy Recommendations To Nursing Amount of Assist Needed 1 Person Assist Discharge Recommendations PT Discharge Recommendations Home with Assistance Outpatient PT
--- NOTE | 2019-05-26 16:42 | CM.DANOTE ---
DCP/Assessment: Reviewed chart. Patient is a 68yr old male admitted to [facility] for I&D of knee performed by Dr. Ding on 05-25-19. PCP listed is Wes Stephen. Primary payor is 1)Medicare 2)[employer] Preferred. Attempted to meet with patient to discuss d/c planning needs. Patient had already been discharged home. Ortho/team confirmed no identified d/c planning needs. P: Home today. LEILA Ye Discharge Planning/Care Management CM Discharge Assessment Start: 05/26/19 16:41 Freq: Status: Active Protocol: Document 05/26/19 16:41 KJS (Rec: 05/26/19 16:42 KJS [id number]) Discharge Planning Assessment Assigned Plant Tender LEILA eY Contact Information Mel Murry (spouse) [phone] Advance Directives? Yes Advance Directives on File No History Provided By Medical Record Prior Living Arrangements House Household Members spouse Comment Ramp Patient/Family Preference OP PT Therapy Discharge Plan Home Transportation Arrangement Family Referrals Initiated None needed Review Status In Process Next Review Type Continued Stay Review Pre-Anesthesia Assessment Start: 05/25/19 07:17 Freq: Status: Discharge Protocol: Document 05/25/19 07:17 CAB (Rec: 05/25/19 07:25 CAB [id number]) Pre-Anesthesia Assessment PAC Comment Chlorhexidine allergy Patient Information Reviewed Via Chart Review Primary Care Provider Wes Stephen Specialist 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 Emergency Orthopedist Primary Language Upper Sorbian Preferred Language Upper Sorbian Institutional Asset Manager Required No Height 177.8 cm Weight 131.088 kg Body Mass Index (BMI) 41.4 Hearing Ability Hard of Hearing Visual Assist Glasses Magnifying Glass Dentition Type Teeth, Natural Present Barriers to Learning Auditory Other Aids No Hx Anesthesia Reactions Yes: It takes a long time for me to wake up Hx Family Anesthesia Reaction No Hx Malignant Hyperthermia No Hx Blood Transfusions Yes: x 4 2012 r/t hip surgeries Hx Blood Transfusion Reaction No Anesthesia Review Requested No Family And Marriage Counsellor No alcohol intake current alcohol intake frequency a few times a week Smoking Status Never smoker Substance Use Type does not use Pain Present Pain Reported Musculoskeletal Symptoms Abnormal Gait Difficulty Walking Joint Pain Muscle Weakness Numbness History of Falling (Recent or History of Yes ) Patient is completely paralyzed or No completely immobile Mental Status Oriented to own ability Does patient have EAST/SOB No Hx Sleep Apnea No CPAP/BIPAP use not prescribed Currently Taking a Beta Jesus No Can You Climb a Flight of Stairs Without Yes SOB Hx Chest Pain No Hx SOB No Hx Syncope or Dizziness No Anti-Coagulant Therapy s/p RT TKA Revision 05/03/19 Has a Volunteer Manager No Cardiac Testing No Hx Pacemaker/ICD No Pacemaker Rep Required? 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 Marital Status Lives With spouse Prior Living Arrangements House Number of Floors (Floors) Two Floors Support System Child/Children Spouse Patient Discharge Plan Description Return Home Feels Safe in Current Environment Yes Been Physically Hurt or Threatened By a No Person in Current Environment Do you have thoughts of harming yourself None or others? Are you currently considering suicide? No Do you have a plan to hurt yourself or No Plan others? Do You Have Any Spiritual Beliefs That No May Affect Your HC Choices? Do You Have Any Cultural Practices That No May Affect Your HC Choices? Who Can We Speak to About Patient's Care Family, friends Identifying Code for Release of Patient Declines to issue Information Health Care Proxy/Next of Kin Casie () Health Care Proxy Emergency Contact Name Casie () Emergency Contact Advance Directives? Yes Advance Directives on File No
== END 2019-05-26 12:03 | disposition home or self-care (01) ==
LOC: OR 14:19 → AC 19:10
PROVIDERS: PCP Family Medicine; Visit Provider Orthopaedic Surgery
PROC: (CPT 27385; principal; 2019-05-25 15:45)
DX: S76.111A Strain of right quadriceps muscle, fascia and tendon, initial encounter (principal); M96.840 Postprocedural hematoma of a musculoskeletal structure following a musculoskeletal system procedure; M25.561 Pain in right knee; M06.9 Rheumatoid arthritis, unspecified; Z96.651 Presence of right artificial knee joint; W19.XXXA Unspecified fall, initial encounter
CPT/HCPCS: 27385; 36415; 85014; 85018; 87070; 87075; 87077; 87147; 87186; 87205; 94760; 97161; 97530; J0690; J1100; J1170; J2250; J2405; J2704; J3010

== ENCOUNTER → 2019-06-02 12:29 | Outpatient (CLI) | payer MEDICARE, OTHER, SELFPAY ==
[2019-05-25 19:20] VITALS: BMI 41.4
--- NOTE | 2019-06-02 | DI.RAD.S_ITS ---
PROCEDURE: FL GUIDED PICC PLACEMENT INDICATIONS: Infection following a procedure COMPARISON: None. FINDINGS: PICC was placed by the intravenous therapy team from the left side. Fluoroscopic spot film demonstrates tip of the PICC projecting over the superior vena cava near the cavoatrial junction. IMPRESSION: Tip of PICC projects over the superior vena cava near the cavoatrial junction. Dictated by: Reginaldo Watt M.D. on 06/02/2019 at 16:28 Approved by: Reginaldo Watt M.D. on 06/02/2019 at 16:30
== END ==
PROVIDERS: PCP Family Medicine; Visit Provider Physician Assistant Medical
DX: Z45.2 Encounter for adjustment and management of vascular access device (principal); T81.49XA Infection following a procedure, other surgical site, initial encounter
CPT/HCPCS: 36573

== ENCOUNTER → 2019-07-16 15:56 | Outpatient (RCR) | payer MEDICARE, OTHER, SELFPAY ==
[2019-05-25 19:20] VITALS: BMI 41.4
[2019-07-16 18:45] VITALS: BP 151/77; PULSE 75; RESP 16; TEMP 36.4; O2SAT 96
[2019-07-16] MEDS: CEFTRIAXONE 2 GM/50 ML FROZ.PIGGY IV (18:45)
--- NOTE | 2019-07-16 19:38 | PC.NURSE ---
Infusion complete, PICC line flushed. Pt aware of plan for Q24hr infusions over the weekend.
[2019-07-17] MEDS: CEFTRIAXONE 2 GM/50 ML FROZ.PIGGY IV (16:51)
[2019-07-17 16:54] VITALS: BP 154/94; PULSE 73; RESP 20; TEMP 36.7
[2019-07-18] MEDS: CEFTRIAXONE 2 GM/50 ML FROZ.PIGGY IV (15:51)
[2019-07-18 15:55] VITALS: BP 135/74; PULSE 78; RESP 16; TEMP 36.6
== END ==
LOC: INF 15:56
PROVIDERS: PCP Family Medicine; Visit Provider Physician Assistant Surgical
DX: T81.49XA Infection following a procedure, other surgical site, initial encounter (principal)
CPT/HCPCS: 96365; J0696

== ENCOUNTER → 2019-07-22 11:00 | Oncology outpatient (ONC) | payer MEDICARE, OTHER, SELFPAY ==
[2019-05-25 19:20] VITALS: BMI 41.4
[2019-06-02] MEDS: CEFTRIAXONE 2 GM/50 ML FROZ.PIGGY IV (15:35)
[2019-06-02 15:48] VITALS: BP 124/65; PULSE 92; RESP 20; TEMP 36.8; O2SAT 92
[2019-06-03] MEDS: CEFTRIAXONE 2 GM/50 ML FROZ.PIGGY IV (15:03)
[2019-06-03 15:13] VITALS: BP 138/71; PULSE 83; RESP 18; TEMP 36.7; O2SAT 93
--- NOTE | 2019-06-03 15:42 | PC.NURSE ---
Received call from Dr. Galan's office reporting pt called today reporting uncontrollable shaking for about an hour post ABX infusion yesterda, pt was afebrile, no chest pain and SOB just shaking. Resolved w/i an hour per pt. Per Dr. Galan infuse antibiotics at slower rate today and monitor pt post infusion. Dr. Galan phoned this abstract writer to confirm above instructions. Pt aware of plan. Also instructed pt that if uncontrollable shaking occurs after he has left clinic today that he should be evaluated in ER for reaction to IV ABX, pt verbalizes understanding.
[2019-06-04] MEDS: CEFTRIAXONE 2 GM/50 ML FROZ.PIGGY IV (14:47)
[2019-06-04 14:58] VITALS: BP 128/76; PULSE 91; RESP 18; TEMP 36.6; O2SAT 94
[2019-06-04 16:52] VITALS: BP 125/67; PULSE 84; RESP 19; TEMP 36.9; O2SAT 94
--- NOTE | 2019-06-04 16:53 | PC.NURSE ---
Infusion complete. Vitals stable. Pt declines to stay longer to check vitals at 30 minute interval. Spouse present for infusion. Pt off AC unit with staff member via wheelchair to personal vehicle.
[2019-06-05 14:50] VITALS: BP 143/76; PULSE 83; RESP 16; TEMP 37; O2SAT 93
[2019-06-05] MEDS: CEFTRIAXONE 2 GM/50 ML FROZ.PIGGY IV (15:02)
--- NOTE | 2019-06-05 17:26 | PC.NURSE ---
Ceftriaxone infusion completed. Pt denies any signs or symptoms of reaction to this infusion. Groshong PICC flushed easily with normal saline. Dressing intact to PICC line. Pt transfers self from chair to wheelchair and left hospital in stable condition accompanied by pt's .
[2019-06-06 14:47] VITALS: BP 146/78; PULSE 84; RESP 16; TEMP 36.9
[2019-06-06] MEDS: CEFTRIAXONE 2 GM/50 ML FROZ.PIGGY IV (14:49)
--- NOTE | 2019-06-06 15:01 | PC.NURSE ---
Pt arrived via home with . offers no overt c/o. Picc patent dressing cdi.
[2019-06-07] MEDS: CEFTRIAXONE 2 GM/50 ML FROZ.PIGGY IV (14:46)
[2019-06-07 14:51] VITALS: BP 158/77; PULSE 79; RESP 18; TEMP 36.9; O2SAT 97
[2019-06-08] MEDS: CEFTRIAXONE 2 GM/50 ML FROZ.PIGGY IV (15:13)
[2019-06-08 15:17] VITALS: BP 144/77; PULSE 75; RESP 14; TEMP 36.9; O2SAT 93
[2019-06-09] MEDS: CEFTRIAXONE 2 GM/50 ML FROZ.PIGGY IV (11:30)
[2019-06-09 11:32] VITALS: BP 158/84; PULSE 75; RESP 18; TEMP 37; O2SAT 92
[2019-06-09 11:33] LABS: Add Manual Diff / Slide Review NO; Basophils Absolute Auto 0 /uL (0-100); Basophils Percent Auto 0.6 % (0-2); Eosinophils Absolute Auto 300 /uL (0-450); Eosinophils Percent Auto 3.9 % (2-4); Hemoglobin 11.8 g/dL (13.5-17.5); Lymphocytes Absolute Auto 900 /uL (1100-4500); Lymphocytes Percent Auto 12.2 % (25-40); Mean Corpuscular HGB Conc 32.9 % (30-36); Mean Corpuscular Hemoglobin 31.7 PG (26-34); Mean Corpuscular Volume 96.3 fL (80-100); Monocytes Absolute Auto 600 /uL (0-900); Monocytes Percent Auto 7.8 % (3-14); Neutrophils Absolute Auto 5400 /uL (1500-7000); Neutrophils Percent Auto 75.5 % (50-75); Platelet Count 315 X10^3/uL (150-400); Red Blood Cell Count 3.74 X10^6/uL (4.5-5.9); Red Cell Distribution Width 13.6 % (11.6-14.8); White Blood Cell Count 7.1 X10^3/uL (4.5-11.0)
[2019-06-09 11:50] LABS: Alanine Aminotransferase 12 IU/L (21-72); Albumin 3.8 g/dL (3.5-5.0); Albumin Globulin Ratio 1.2 (1.0-2.8); Alkaline Phosphatase 73 U/L (38-126); Aspartate Aminotransferase 16 IU/L (17-59); BUN Creatinine Ratio 22.5 (6-22); Bilirubin Total 0.4 mg/dL (0.2-1.3); Blood Urea Nitrogen 18 mg/dL (9-20); C-Reactive Protein Quant 4.6 mg/dL (<1.0); Calcium 9.3 mg/dL (8.4-10.2); Carbon Dioxide 29 mmol/L (22-32); Chloride 102 mmol/L (98-107); Estimated Glomerular Filt Rate > 60.0 mL/min (>60); Globulin 3.1 g/dL (1.7-4.1); Glucose 122 mg/dL (80-110); HEMOLYSIS < 15 (0-50); Potassium 4.5 mmol/L (3.4-5.1); Sodium 140 mmol/L (137-145); Total Protein 6.9 g/dL (6.3-8.2)
[2019-06-09 12:00] LABS: Erythrocyte Sedimentation Rate 72 MM/HR (0-15)
[2019-06-10] MEDS: CEFTRIAXONE 2 GM/50 ML FROZ.PIGGY IV (15:01)
[2019-06-11] MEDS: CEFTRIAXONE 2 GM/50 ML FROZ.PIGGY IV (14:56)
[2019-06-11 14:59] VITALS: BP 146/76; PULSE 82; RESP 20; TEMP 36.6; O2SAT 92
--- NOTE | 2019-06-11 15:00 | PC.NURSE ---
Pt arrived via home. offers no overt issues.
[2019-06-12 14:57] VITALS: BP 149/89; PULSE 77; RESP 20; TEMP 36.7; O2SAT 94
[2019-06-12] MEDS: CEFTRIAXONE 2 GM/50 ML FROZ.PIGGY IV (15:02)
[2019-06-13 14:51] VITALS: BP 130/77; PULSE 84; RESP 18; TEMP 36.7; O2SAT 94
[2019-06-13] MEDS: CEFTRIAXONE 2 GM/50 ML FROZ.PIGGY IV (14:54)
[2019-06-14] MEDS: CEFTRIAXONE 2 GM/50 ML FROZ.PIGGY IV (15:07)
[2019-06-14 15:29] VITALS: BP 147/80; PULSE 78; RESP 16; TEMP 36.8; O2SAT 95
[2019-06-15] MEDS: CEFTRIAXONE 2 GM/50 ML FROZ.PIGGY IV (14:51)
[2019-06-15 14:58] VITALS: BP 148/80; PULSE 76; RESP 16; TEMP 36.8; O2SAT 95
[2019-06-16 15:14] VITALS: BP 149/75; PULSE 76; RESP 16; TEMP 36.7; O2SAT 92
[2019-06-16 15:31] LABS: Add Manual Diff / Slide Review NO; Basophils Absolute Auto 0 /uL (0-100); Basophils Percent Auto 0.8 % (0-2); Eosinophils Absolute Auto 300 /uL (0-450); Eosinophils Percent Auto 4.5 % (2-4); Hematocrit 35.2 % (41-53); Hemoglobin 11.6 g/dL (13.5-17.5); Lymphocytes Absolute Auto 1000 /uL (1100-4500); Lymphocytes Percent Auto 18.2 % (25-40); Mean Corpuscular HGB Conc 32.8 % (30-36); Mean Corpuscular Hemoglobin 31.6 PG (26-34); Mean Corpuscular Volume 96.1 fL (80-100); Monocytes Absolute Auto 500 /uL (0-900); Monocytes Percent Auto 8.7 % (3-14); Neutrophils Absolute Auto 3800 /uL (1500-7000); Neutrophils Percent Auto 67.8 % (50-75); Platelet Count 267 X10^3/uL (150-400); Red Blood Cell Count 3.66 X10^6/uL (4.5-5.9); Red Cell Distribution Width 13.9 % (11.6-14.8); White Blood Cell Count 5.6 X10^3/uL (4.5-11.0)
[2019-06-16] MEDS: CEFTRIAXONE 2 GM/50 ML FROZ.PIGGY IV (15:31)
[2019-06-16 15:43] LABS: Alanine Aminotransferase 16 IU/L (21-72); Albumin 3.6 g/dL (3.5-5.0); Albumin Globulin Ratio 1.3 (1.0-2.8); Alkaline Phosphatase 65 U/L (38-126); Aspartate Aminotransferase 22 IU/L (17-59); BUN Creatinine Ratio 32.9 (6-22); Bilirubin Total 0.4 mg/dL (0.2-1.3); Blood Urea Nitrogen 23 mg/dL (9-20); Calcium 9.2 mg/dL (8.4-10.2); Carbon Dioxide 30 mmol/L (22-32); Chloride 102 mmol/L (98-107); Estimated Glomerular Filt Rate > 60.0 mL/min (>60); Globulin 2.8 g/dL (1.7-4.1); Glucose 135 mg/dL (80-110); HEMOLYSIS < 15 (0-50); Sodium 139 mmol/L (137-145); Total Protein 6.4 g/dL (6.3-8.2)
[2019-06-16 16:03] LABS: Erythrocyte Sedimentation Rate 48 MM/HR (0-15)
[2019-06-17] MEDS: CEFTRIAXONE 2 GM/50 ML FROZ.PIGGY IV (14:40)
[2019-06-18] MEDS: CEFTRIAXONE 2 GM/50 ML FROZ.PIGGY IV (13:55)
[2019-06-18 13:57] VITALS: BP 151/76; PULSE 78; RESP 16; TEMP 37.1; O2SAT 93
[2019-06-19] MEDS: CEFTRIAXONE 2 GM/50 ML FROZ.PIGGY IV (13:47)
[2019-06-19 13:54] VITALS: BP 132/83; PULSE 81; RESP 18; TEMP 36.5; O2SAT 94
[2019-06-20] MEDS: CEFTRIAXONE 2 GM/50 ML FROZ.PIGGY IV (14:10)
[2019-06-20 14:22] VITALS: BP 139/79; PULSE 73; RESP 20; TEMP 37.2; O2SAT 95
--- NOTE | 2019-06-20 14:24 | PC.NURSE ---
Pt arrived via home with . Pt offers no complaint brace intact CDI. Picc patent.
[2019-06-21] MEDS: CEFTRIAXONE 2 GM/50 ML FROZ.PIGGY IV (14:48)
[2019-06-21 14:52] VITALS: BP 126/78; PULSE 92; RESP 16; TEMP 36.9
[2019-06-22] MEDS: CEFTRIAXONE 2 GM/50 ML FROZ.PIGGY IV (14:57)
[2019-06-22 15:09] VITALS: BP 131/70; PULSE 80; RESP 16; TEMP 36.7; O2SAT 93
[2019-06-22 15:13] LABS: Add Manual Diff / Slide Review NO; Basophils Absolute Auto 100 /uL (0-100); Basophils Percent Auto 0.7 % (0-2); Eosinophils Absolute Auto 300 /uL (0-450); Eosinophils Percent Auto 4.8 % (2-4); Hematocrit 40.6 % (41-53); Hemoglobin 13.6 g/dL (13.5-17.5); Lymphocytes Absolute Auto 1100 /uL (1100-4500); Lymphocytes Percent Auto 15.9 % (25-40); Mean Corpuscular HGB Conc 33.5 % (30-36); Mean Corpuscular Volume 95.3 fL (80-100); Monocytes Absolute Auto 800 /uL (0-900); Monocytes Percent Auto 12.2 % (3-14); Neutrophils Absolute Auto 4600 /uL (1500-7000); Neutrophils Percent Auto 66.4 % (50-75); Platelet Count 270 X10^3/uL (150-400); Red Blood Cell Count 4.26 X10^6/uL (4.5-5.9); Red Cell Distribution Width 14.3 % (11.6-14.8); White Blood Cell Count 6.9 X10^3/uL (4.5-11.0)
[2019-06-22 15:26] LABS: HEMOLYSIS < 15 (0-50); Potassium 4.2 mmol/L (3.4-5.1)
[2019-06-22 15:31] LABS: Alanine Aminotransferase 20 IU/L (21-72); Albumin Globulin Ratio 1.3 (1.0-2.8); Alkaline Phosphatase 79 U/L (38-126); Aspartate Aminotransferase 20 IU/L (17-59); Bilirubin Total 0.5 mg/dL (0.2-1.3); Blood Urea Nitrogen 20 mg/dL (9-20); C-Reactive Protein Quant 1.7 mg/dL (<1.0); Calcium 9.5 mg/dL (8.4-10.2); Carbon Dioxide 30 mmol/L (22-32); Chloride 99 mmol/L (98-107); Estimated Glomerular Filt Rate > 60.0 mL/min (>60); Globulin 3.1 g/dL (1.7-4.1); Glucose 104 mg/dL (80-110); Sodium 139 mmol/L (137-145); Total Protein 7.1 g/dL (6.3-8.2)
[2019-06-22 16:30] LABS: Erythrocyte Sedimentation Rate 34 MM/HR (0-15)
[2019-06-23 14:25] VITALS: BP 143/78; PULSE 93; RESP 16; TEMP 37; O2SAT 94
[2019-06-23] MEDS: CEFTRIAXONE 2 GM/50 ML FROZ.PIGGY IV (14:25)
[2019-06-24] MEDS: CEFTRIAXONE 2 GM/50 ML FROZ.PIGGY IV (14:48)
[2019-06-24 14:56] VITALS: BP 135/80; PULSE 84; RESP 16; TEMP 36.7; O2SAT 92
[2019-06-25 14:10] VITALS: BP 152/72; PULSE 75; RESP 18; TEMP 36.6; O2SAT 92
[2019-06-25] MEDS: CEFTRIAXONE 2 GM/50 ML FROZ.PIGGY IV (14:13)
[2019-06-26 13:50] VITALS: BP 141/86; PULSE 86; RESP 20; TEMP 37.2; O2SAT 93
[2019-06-26] MEDS: CEFTRIAXONE 2 GM/50 ML FROZ.PIGGY IV (13:54)
--- NOTE | 2019-06-26 14:53 | PC.NURSE ---
P Infusion- Pt arrived on unit walking with walker with his at his side. arrived at 1400, settled into room 207 into recliner chair. No voiced concerns. Pt has right knee brace on. VSS, afebrile. MACIEJ PICC groshong blue line flushes well with brisk blood return. Infusion complete. No further voiced concerns. PICC flushed with 5ml NS per hospital policy and protocol. PICC dressing dated for last change on 06/23. Pt left unit in no distress at 1448 up ad shae with walker and his at his side.
[2019-06-27 13:31] VITALS: BP 137/71; PULSE 84; RESP 22; TEMP 36.5; O2SAT 93
[2019-06-27] MEDS: CEFTRIAXONE 2 GM/50 ML FROZ.PIGGY IV (13:37)
--- NOTE | 2019-06-27 14:39 | PC.NURSE ---
OP Inf- Pt arrived at 1320 up ad shae using walker with his at his side, pt settled into room 211 into recliner chair, water given. VSS, afebrile, MACIEJ PICC Groshong flushes well with brisk blood return, dressing CDI. Infusion started, no voiced concerns. Pt does currently have his right knee brace on. Infusion complete at 1417 without issue. PICC flushed with NS per hospital policy and protocol. Pt left unit at 1424 up ad shae with walker in no distress with his by his side.
[2019-06-28] MEDS: CEFTRIAXONE 2 GM/50 ML FROZ.PIGGY IV (14:53)
[2019-06-28 14:56] VITALS: BP 145/77; PULSE 90; RESP 18; TEMP 36.9; O2SAT 93
[2019-06-29] MEDS: CEFTRIAXONE 2 GM/50 ML FROZ.PIGGY IV (14:57)
[2019-06-30] MEDS: CEFTRIAXONE 2 GM/50 ML FROZ.PIGGY IV (14:47)
[2019-06-30 14:55] LABS: Add Manual Diff / Slide Review NO; Basophils Absolute Auto 0 /uL (0-100); Basophils Percent Auto 0.8 % (0-2); Eosinophils Absolute Auto 400 /uL (0-450); Eosinophils Percent Auto 7.6 % (2-4); Hematocrit 38.9 % (41-53); Hemoglobin 12.9 g/dL (13.5-17.5); Lymphocytes Absolute Auto 1200 /uL (1100-4500); Lymphocytes Percent Auto 22.3 % (25-40); Mean Corpuscular HGB Conc 33.1 % (30-36); Mean Corpuscular Hemoglobin 31.3 PG (26-34); Mean Corpuscular Volume 94.4 fL (80-100); Monocytes Absolute Auto 600 /uL (0-900); Monocytes Percent Auto 12.1 % (3-14); Neutrophils Absolute Auto 3000 /uL (1500-7000); Neutrophils Percent Auto 57.2 % (50-75); Platelet Count 207 X10^3/uL (150-400); Red Blood Cell Count 4.12 X10^6/uL (4.5-5.9); Red Cell Distribution Width 13.7 % (11.6-14.8); White Blood Cell Count 5.2 X10^3/uL (4.5-11.0)
[2019-06-30 14:59] VITALS: BP 166/81; PULSE 74; RESP 18; TEMP 36.9; O2SAT 96
[2019-06-30 15:16] LABS: Alanine Aminotransferase 16 IU/L (21-72); Albumin 3.9 g/dL (3.5-5.0); Albumin Globulin Ratio 1.3 (1.0-2.8); Alkaline Phosphatase 80 U/L (38-126); Aspartate Aminotransferase 19 IU/L (17-59); BUN Creatinine Ratio 22.9 (6-22); Bilirubin Total 0.5 mg/dL (0.2-1.3); Blood Urea Nitrogen 16 mg/dL (9-20); Calcium 9.5 mg/dL (8.4-10.2); Carbon Dioxide 30 mmol/L (22-32); Chloride 101 mmol/L (98-107); Estimated Glomerular Filt Rate > 60.0 mL/min (>60); Globulin 2.9 g/dL (1.7-4.1); Glucose 121 mg/dL (80-110); HEMOLYSIS < 15 (0-50); Potassium 4.1 mmol/L (3.4-5.1); Sodium 139 mmol/L (137-145); Total Protein 6.8 g/dL (6.3-8.2)
[2019-06-30 15:17] LABS: Erythrocyte Sedimentation Rate 32 MM/HR (0-15)
[2019-06-30 15:29] VITALS: BP 136/71; PULSE 72
--- NOTE | 2019-06-30 16:16 | PC.NURSE ---
Pr having severe reaction to adhesives used to dress PICC line. every effort was made to minimize skin contact with adhesives during dressing change. Pt was educated on when to seek medical attention and what s/s to report to infusion nurse if dressing becomes compromised. PT verbalized understanding.
[2019-07-01] MEDS: CEFTRIAXONE 2 GM/50 ML FROZ.PIGGY IV (14:41)
[2019-07-01 14:43] VITALS: BP 150/79; PULSE 83; RESP 18; TEMP 37.1; O2SAT 95
[2019-07-02] MEDS: CEFTRIAXONE 2 GM/50 ML FROZ.PIGGY IV (13:46)
[2019-07-02 13:47] VITALS: BP 142/68; PULSE 86; RESP 16; TEMP 36.6
[2019-07-03] MEDS: CEFTRIAXONE 2 GM/50 ML FROZ.PIGGY IV (13:38)
[2019-07-03 13:46] VITALS: BP 138/74; PULSE 80; RESP 16; TEMP 36.3; O2SAT 94
[2019-07-04 13:53] VITALS: BP 133/75; PULSE 93; RESP 19; TEMP 36.6; O2SAT 93
[2019-07-04] MEDS: CEFTRIAXONE 2 GM/50 ML FROZ.PIGGY IV (13:53)
[2019-07-05] MEDS: CEFTRIAXONE 2 GM/50 ML FROZ.PIGGY IV (14:51)
[2019-07-05 14:55] VITALS: BP 148/71; PULSE 77; RESP 20; TEMP 37.1; O2SAT 95
[2019-07-06 15:04] LABS: Add Manual Diff / Slide Review NO; Basophils Absolute Auto 0 /uL (0-100); Basophils Percent Auto 1.1 % (0-2); Eosinophils Absolute Auto 300 /uL (0-450); Eosinophils Percent Auto 7.1 % (2-4); Hemoglobin 15.3 g/dL (13.5-17.5); Lymphocytes Absolute Auto 700 /uL (1100-4500); Lymphocytes Percent Auto 18.1 % (25-40); Mean Corpuscular HGB Conc 33.2 % (30-36); Mean Corpuscular Hemoglobin 31.1 PG (26-34); Mean Corpuscular Volume 93.5 fL (80-100); Monocytes Absolute Auto 400 /uL (0-900); Monocytes Percent Auto 9.7 % (3-14); Neutrophils Absolute Auto 2500 /uL (1500-7000); Platelet Count 175 X10^3/uL (150-400); Red Blood Cell Count 4.92 X10^6/uL (4.5-5.9); Red Cell Distribution Width 13.6 % (11.6-14.8); White Blood Cell Count 3.9 X10^3/uL (4.5-11.0)
[2019-07-06] MEDS: CEFTRIAXONE 2 GM/50 ML FROZ.PIGGY IV (15:09)
[2019-07-06 15:15] VITALS: BP 157/78; PULSE 75; RESP 18; TEMP 36.8; O2SAT 97
[2019-07-06 15:18] LABS: Alanine Aminotransferase 21 IU/L (21-72); Albumin 3.9 g/dL (3.5-5.0); Albumin Globulin Ratio 1.3 (1.0-2.8); Alkaline Phosphatase 75 U/L (38-126); Aspartate Aminotransferase 19 IU/L (17-59); BUN Creatinine Ratio 21.4 (6-22); Bilirubin Total 0.4 mg/dL (0.2-1.3); Blood Urea Nitrogen 15 mg/dL (9-20); C-Reactive Protein Quant 2.5 mg/dL (<1.0); Calcium 9.2 mg/dL (8.4-10.2); Carbon Dioxide 32 mmol/L (22-32); Chloride 101 mmol/L (98-107); Estimated Glomerular Filt Rate > 60.0 mL/min (>60); Globulin 2.9 g/dL (1.7-4.1); Glucose 124 mg/dL (80-110); HEMOLYSIS < 15 (0-50); Sodium 139 mmol/L (137-145); Total Protein 6.8 g/dL (6.3-8.2)
[2019-07-06 15:24] LABS: Erythrocyte Sedimentation Rate 7 MM/HR (0-15)
[2019-07-07] MEDS: CEFTRIAXONE 2 GM/50 ML FROZ.PIGGY IV (14:59)
[2019-07-07 16:35] VITALS: BP 154/84; PULSE 84; RESP 24; TEMP 37.1; O2SAT 92
[2019-07-08] MEDS: CEFTRIAXONE 2 GM/50 ML FROZ.PIGGY IV (15:00)
[2019-07-08 15:51] VITALS: BP 145/77; PULSE 75; RESP 16; TEMP 36.7; O2SAT 92
[2019-07-09 13:54] VITALS: BP 134/87; PULSE 79; RESP 12; TEMP 36.4
[2019-07-09] MEDS: CEFTRIAXONE 2 GM/50 ML FROZ.PIGGY IV (13:55)
[2019-07-10] MEDS: CEFTRIAXONE 2 GM/50 ML FROZ.PIGGY IV (14:07)
[2019-07-10 14:15] VITALS: BP 120/74; PULSE 83; RESP 20; TEMP 36.6; O2SAT 93
--- NOTE | 2019-07-10 14:16 | PC.NURSE ---
Pt arrived via home, without complaint. Happy the he no longer needs the brace. Picc line accessed per protoccaitlin. and Pt playing cards.
[2019-07-11] MEDS: CEFTRIAXONE 2 GM/50 ML FROZ.PIGGY IV (13:54)
[2019-07-11 14:14] VITALS: BP 132/68; PULSE 67; RESP 18; TEMP 36.4
[2019-07-12] MEDS: CEFTRIAXONE 2 GM/50 ML FROZ.PIGGY IV (14:33)
[2019-07-12 14:39] VITALS: BP 158/79; PULSE 80; RESP 16; TEMP 36.4; O2SAT 95
[2019-07-13 14:57] LABS: Add Manual Diff / Slide Review NO; Basophils Absolute Auto 100 /uL (0-100); Basophils Percent Auto 1.2 % (0-2); Eosinophils Absolute Auto 500 /uL (0-450); Hematocrit 40.5 % (41-53); Hemoglobin 13.4 g/dL (13.5-17.5); Lymphocytes Absolute Auto 1100 /uL (1100-4500); Lymphocytes Percent Auto 20.3 % (25-40); Mean Corpuscular Hemoglobin 30.7 PG (26-34); Mean Corpuscular Volume 93.1 fL (80-100); Monocytes Absolute Auto 600 /uL (0-900); Monocytes Percent Auto 10.1 % (3-14); Neutrophils Absolute Auto 3300 /uL (1500-7000); Neutrophils Percent Auto 59.4 % (50-75); Platelet Count 239 X10^3/uL (150-400); Red Blood Cell Count 4.35 X10^6/uL (4.5-5.9); Red Cell Distribution Width 13.5 % (11.6-14.8); White Blood Cell Count 5.6 X10^3/uL (4.5-11.0)
[2019-07-13] MEDS: CEFTRIAXONE 2 GM/50 ML FROZ.PIGGY IV (15:03)
[2019-07-13 15:05] VITALS: BP 151/79; PULSE 79; RESP 16; TEMP 37.1; O2SAT 95
[2019-07-13 15:07] LABS: Erythrocyte Sedimentation Rate 30 MM/HR (0-15)
[2019-07-13 15:09] LABS: Alanine Aminotransferase 21 IU/L (21-72); Albumin 3.8 g/dL (3.5-5.0); Albumin Globulin Ratio 1.3 (1.0-2.8); Alkaline Phosphatase 78 U/L (38-126); Aspartate Aminotransferase 22 IU/L (17-59); Bilirubin Total 0.4 mg/dL (0.2-1.3); Blood Urea Nitrogen 20 mg/dL (9-20); C-Reactive Protein Quant 1.4 mg/dL (<1.0); Calcium 9.2 mg/dL (8.4-10.2); Carbon Dioxide 30 mmol/L (22-32); Chloride 103 mmol/L (98-107); Estimated Glomerular Filt Rate > 60.0 mL/min (>60); Glucose 123 mg/dL (80-110); HEMOLYSIS < 15 (0-50); Potassium 4.5 mmol/L (3.4-5.1); Sodium 140 mmol/L (137-145); Total Protein 6.8 g/dL (6.3-8.2)
[2019-07-19] MEDS: CEFTRIAXONE 2 GM/50 ML FROZ.PIGGY IV (15:42)
[2019-07-19 15:44] VITALS: BP 163/85; PULSE 84; RESP 18; TEMP 36.9; O2SAT 96
[2019-07-19 16:24] VITALS: BP 148/80; PULSE 81; RESP 16; TEMP 36.8; O2SAT 97
--- NOTE | 2019-07-19 16:35 | PC.NURSE ---
at end of Ceftriaxone infusion, pt's stated she noticed pt's face getting red. VSS. pt denies SOB, itching. triage ginette GERMAIN faxed note to Dr. Ding in surgery at [facility]. signs and symptoms reviewed with pt/ and if symptoms occur to go to ED.
[2019-07-20 15:16] VITALS: BP 153/82; PULSE 75; RESP 20; TEMP 36.6; O2SAT 97
[2019-07-20] MEDS: CEFTRIAXONE 2 GM/50 ML FROZ.PIGGY IV (15:17)
[2019-07-20 15:32] LABS: Add Manual Diff / Slide Review NO; Basophils Absolute Auto 100 /uL (0-100); Basophils Percent Auto 0.7 % (0-2); Eosinophils Absolute Auto 400 /uL (0-450); Eosinophils Percent Auto 5.3 % (2-4); Hematocrit 38.8 % (41-53); Hemoglobin 12.8 g/dL (13.5-17.5); Lymphocytes Absolute Auto 1200 /uL (1100-4500); Lymphocytes Percent Auto 14.5 % (25-40); Mean Corpuscular HGB Conc 33.1 % (30-36); Mean Corpuscular Hemoglobin 30.8 PG (26-34); Mean Corpuscular Volume 93.1 fL (80-100); Monocytes Absolute Auto 800 /uL (0-900); Neutrophils Absolute Auto 5800 /uL (1500-7000); Neutrophils Percent Auto 69.5 % (50-75); Platelet Count 225 X10^3/uL (150-400); Red Blood Cell Count 4.17 X10^6/uL (4.5-5.9); Red Cell Distribution Width 13.7 % (11.6-14.8); White Blood Cell Count 8.3 X10^3/uL (4.5-11.0)
[2019-07-20 15:45] LABS: BUN Creatinine Ratio 22.5 (6-22); Blood Urea Nitrogen 18 mg/dL (9-20); C-Reactive Protein Quant 1.8 mg/dL (<1.0); Carbon Dioxide 30 mmol/L (22-32); Chloride 103 mmol/L (98-107); Estimated Glomerular Filt Rate > 60.0 mL/min (>60); Glucose 97 mg/dL (80-110); HEMOLYSIS < 15 (0-50); Potassium 4.3 mmol/L (3.4-5.1); Sodium 139 mmol/L (137-145)
[2019-07-20 15:50] LABS: Erythrocyte Sedimentation Rate 24 MM/HR (0-15)
--- NOTE | 2019-07-21 13:02 | PC.NURSE ---
Addendum entered by Selma Almonte R.N. 07/21/19 13:47: Calin Sellers at Dr. tinsley office, hold ABX today. Pt has appt at w/ Dr. Tinsley this afternoon at 3:10. Pt aware. Original Note: Increased redness noted around PICC dressing site. No reddness not at insertion site of PICC, just around the borders. Initially thought to be caused by material of dressing, new type of dressing placed and reddness persists. Pt also c/o itching to my head and tingling to lips. Medication not administered at this time. Called Dr. Tinsley' office, transferred to triage, priority message left with description of s/s and instructed to call this clinic back with orders.
--- NOTE | 2019-07-22 11:35 | PC.NURSE ---
PICC LINE REMOVAL: Per DESTINI Sandra at Dr. Ding office his note of yesterday states reasonable to remove PICC line at this time and so she states VO that we can remove, she will fax this report to us.
[2019-07-22] MEDS: NEOMYCIN/POLYMYXIN/BACITRA UD OINT 1 EACH TOP (11:44)
[2019-07-22 12:17] VITALS: BP 142/74; PULSE 71; RESP 16; TEMP 36.8; O2SAT 95
== END ==
PROVIDERS: PCP Family Medicine; Visit Provider Orthopaedic Surgery
DX: T81.49XA Infection following a procedure, other surgical site, initial encounter (principal); Z96.651 Presence of right artificial knee joint
CPT/HCPCS: 36573; 36592; 80048; 80053; 85025; 85651; 86140; 96365; 96366; 96523; J0696

== ENCOUNTER 2021-05-10 17:02 | Emergency (ER) | payer MEDICARE, OTHER, SELFPAY ==
[2019-05-25 19:20] VITALS: BMI 41.4
[2021-05-10 17:08] VITALS: BP 193/93; PULSE 85; RESP 18; TEMP 36.6; O2SAT 92; BMI 44.0
--- NOTE | 2021-05-10 17:17 | DI.US.S_ITS ---
PROCEDURE: US PERIPH VENOUS LOW EXTREM LT INDICATIONS: SWELLING/WARMTH, L LEG TECHNIQUE: Real-time imaging, as well as color and pulse Doppler interrogation, were performed of the lower extremity deep veins from the inguinal ligament to the popliteal fossa. Study is limited by body habitus COMPARISON: None. FINDINGS: There are internal echoes and partial compressibility of the superficial femoral and popliteal vein. The remainder of the visualized vasculature is patent with appropriate waveforms and color flow. IMPRESSION: Positive deep venous thrombosis. Nonocclusive thrombus noted in the distal superficial femoral and proximal popliteal veins. Approved by: Zain Ordonez M.D. on 05/10/2021 at 17:30
--- NOTE | 2021-05-10 18:53 | ED_ITS ---
HPI - Extremity Problem General Chief complaint: Extremity Problem,Nontraumatic Stated complaint: sent for US of left leg Time Seen by Provider: 05/10/21 18:22 Source: patient Mode of arrival: Ambulatory Limitations: no limitations History of Present Illness HPI Narrative: Patient is a 70-year-old male who was at his orthopedic doctor's office today for discussion about having a left knee replacement. During that visit he mention to the orthopedic doctor and was also noticed by the orthopedic doctor that he was having swelling in his left lower extremity. Patient states he has had swelling in that extremity for the past 6 weeks or so. He states that it started to swell when it became warm outside. He does not know of any specific trauma. Has no chest pain. No shortness of breath. He states that the leg does cause him discomfort when he walks because of the swelling. He has never had a blood clot before. Not on anticoagulation. Was told to come to the emergency department for further evaluation of a potential DVT. Related Data Home Medications Medication Instructions Recorded Confirmed methotrexate sodium 25 mg/mL 0.8 ml IM QWEEK 04/15/19 07/19/19 injection solution Previous Rx's Medication Instructions Recorded hydroxyzine pamoate 25 mg capsule 25 mg PO Q6HR PRN #40 cap 05/04/19 oxycodone 5 mg tablet 5 mg PO Q4-6H PRN #30 tab 05/06/19 cephalexin 250 mg capsule 500 mg PO QID #30 cap 05/26/19 apixaban 5 mg tablet 5 mg PO BID #70 tab 05/10/21 Allergies Allergy/AdvReac Type Severity Reaction Status Date / Time chlorhexidine Allergy Severe Rash Verified 05/10/21 17:14 codeine AdvReac Intermediate Nausea, Verified 05/10/21 17:14 vomiting gold Au 198 AdvReac Intermediate My skin Verified 05/10/21 17:14 will dissolve a gold watch in 3 years if left on Review of Systems Constitutional Constitutional: Reports system reviewed and no additional complaints, except as documented Cardiovascular Cardiovascular: Reports as per HPI Respiratory Respiratory: Reports as per HPI Gastrointestinal Gastrointestinal: Reports system reviewed and no additional complaints, except as documented Musculoskeletal Musculoskeletal: Reports as per HPI Integumentary/Breasts Skin/Breast: Reports system reviewed and no additional complaints, except as documented Neurologic Neurologic: Reports system reviewed and no additional complaints, except as documented Hematologic/Lymphatic On Anticoagulants: No Allergic/Immunologic Allergic/Immunologic: Reports system reviewed and no additional complaints, except as documented Patient History Medical History Easy bruisability Hearing impaired History of prosthetic unicompartmental arthroplasty of both knees Numbness Skin cancer (~02/2019) Surgical History (Updated 04/15/19 @ 14:22 by Kortney Wray RN) History of total left hip arthroplasty (~2011) Hx of tonsillectomy Social History household members: spouse Smoking Status: Never smoker alcohol intake: current Smoking Status: Never smoker alcohol intake frequency: a few times a month Substance Use Type: does not use Exam Initial Vital Signs Initial Vital Signs: Vital Signs Temperature 97.9 F 05/10/21 17:08 Pulse Rate 85 05/10/21 17:08 Respiratory Rate 18 05/10/21 17:08 Blood Pressure 193/93 H 05/10/21 17:08 Pulse Oximetry 92 05/10/21 17:08 Const General: cooperative and comfortable HENMT Head: normal to inspection and normocephalic Eyes General: appearance normal, both eyes and all related structures Resp Effort & Inspection: normal respiratory effort Cardio Rate: regular rate Pulses: dorsalis pedis present on the left GI Inspection: normal to inspection Skin Other: Patient does have what appears to be chronic venous stasis changes to the left lower extremity. Neuro General: patient alert, patient awake and moves all extremities Extrem Other: Patient does have circumferential swelling to the left lower extremity from the hip to his toes. Psych Appearance: grossly normal and well kempt Scores Wells' Criteria for DVT Active Cancer (Treatment within 6 months): No Bedridden recently >3 days or major surgery within 4 weeks: No Calf Swelling >3cm compared to other leg: Yes Collateral (nonvericose) superficial veins present: Yes Entire leg swollen: Yes Localized tenderness along the deep vein system: No Pitting edema, confined to symtomatic leg: No Paralysis, paresis, or recent plaster immobilization of ext: No Previously documented DVT: No Alternative dx to DVT as likely or more likely: No Wells' criteria for DVT: 3 Course Orders Ordered: ED Orders 05/10/21 17:17 US periph venous low extrem lt Stat Discontinued Medications Apixaban (Apixaban 5 Mg Tablet) 10 mg PO NOW ONE Stop: 05/10/21 18:54 Last Admin: 05/10/21 19:09 Dose: 10 mg Documented by: LINDSAY Vital Signs Vital signs: Vital Signs - 8 hr 05/10/21 17:08 05/10/21 19:22 Temperature 97.9 F Pulse Rate 85 89 Respiratory Rate 18 18 Blood Pressure 193/93 H 192/90 H Pulse Oximetry 92 99 MDM - Extremity (Nontraumatic) Imaging Data US - DVT: Radiologist's Impression: [address] [id number] ReportSigned Patient: Nader Murry VMR#: [id number]: [id number]/Sex: 70 / MDate of Service: 05/10/21Loc: EDAccession Number: [id number] Procedure: US periph venous low extrem lt Ordering Provider: Bud Topete D.O. PROCEDURE: US PERIPH VENOUS LOW EXTREM LT INDICATIONS: SWELLING/WARMTH, L LEG TECHNIQUE: Real-time imaging, as well as color and pulse Doppler interrogation, were performed of the lower extremity deep veins from the inguinal ligament to the popliteal fossa. Study is limited by body habitus COMPARISON: None. FINDINGS: There are internal echoes and partial compressibility of the superficial femoral and popliteal vein. The remainder of the visualized vasculature is patent with appropriate waveforms and color flow. IMPRESSION: Positive deep venous thrombosis. Nonocclusive thrombus noted in the distal superficial femoral and proximal popliteal veins. Approved by: Zain Ordonez M.D. on 05/10/2021 at 17:30 MDM Narrative Medical decision making narrative: Patient's physical exam and ultrasound is consistent with a DVT. I suspect that this has been there for the past 6 weeks when he started having swelling in his leg. He has no chest pain. No shortness of breath. Low suspicion for pulmonary embolism. Has never had a blood clot in the past. Is neurovascularly intact. Will send home with apixaban. He is given his 1st dose here in the emergency department. He already has a follow-up with his primary doctor scheduled for the beginning of next week. He was given strict return precautions and follow-up instructions. He expressed under standing and agreement. Discharge Plan Departure Patient Disposition: Home Clinical Impression: Deep vein thrombosis of lower extremity Instructions: DI for Deep Vein Thrombosis Activity Restrictions/Additional Instructions: You were given your 1st dose of anticoagulation here in the emergency department. Please fill the prescription tomorrow and start taking it as directed and keep your follow-up appointment your primary doctor that is already scheduled. Return to the emergency department for any new or worsening symptoms. Please be sure to keep your leg elevated. Consider purchasing compression stockings to help with the swelling. Return to the emergency department for any new or worsening symptoms Prescriptions: New apixaban 5 mg tablet 5 mg PO BID Qty: 70 RF: 0 No Action cephalexin 250 mg Capsule 500 mg PO QID Qty: 30 RF: 0 methotrexate sodium 25 mg/mL Solution 0.8 ml IM QWEEK RF: 0 hydroxyzine pamoate 25 mg Capsule 25 mg PO Q6HR PRN (Reason: Nausea) Qty: 40 RF: 0 oxycodone 5 mg tablet 5 mg PO Q4-6H PRN (Reason: pain) Qty: 30 RF: 0 Referrals: Wes Stephen MD [Primary Care Provider] -
[2021-05-10] MEDS: APIXABAN 5 MG TABLET 10 MG PO (19:09)
[2021-05-10 19:22] VITALS: BP 192/90; PULSE 89; RESP 18; O2SAT 99
== END 2021-05-10 19:24 | disposition home or self-care (01) ==
PROVIDERS: Emergency Provider Emergency Medicine; PCP Family Medicine; Referring Provider Orthopaedic Surgery
DX: I82.402 Acute embolism and thrombosis of unspecified deep veins of left lower extremity (principal)
CPT/HCPCS: 93971; 99283

== ENCOUNTER 2023-07-10 06:33 | Inpatient (IN) | payer MEDICARE, OTHER, SELFPAY ==
[2019-05-25 19:20] VITALS: BMI 41.4
[2023-07-02 11:16] VITALS: BMI 39.9
[2023-07-10] VITALS (16 sets, daily range): BP systolic 110–160; BP diastolic 54–90; PULSE 78–106; RESP 13–21; TEMP 36.4–37.2; O2SAT 91–98; BMI 40.1
--- NOTE | 2023-07-10 | DI.RAD.S_ITS ---
PROCEDURE: XR KNEE LT 1TO2V INDICATIONS: Postop TKA TECHNIQUE: 2 view(s) of the knee acquired. COMPARISON: None. FINDINGS: Bones: Patient is status post knee joint arthroplasty. Hardware components are in expected positions. Visualized bony structures are intact. Soft tissues: Overlying postoperative changes are noted. IMPRESSION: Expected postsurgical change for left knee arthroplasty. Dictated by: Elenita Pepper MD, PhD on 07/10/2023 at 15:32 Approved by: Elenita Pepper MD, PhD on 07/10/2023 at 15:32
--- NOTE | 2023-07-10 06:37 | DI.RAD.S_ITS ---
PROCEDURE: XR KNEE LT 1TO2V INDICATIONS: Total knee arthroplasty. TECHNIQUE: 2 view(s) of the knee acquired. COMPARISON: None. FINDINGS: Bones: Patient is status post knee joint arthroplasty. Hardware components are in expected positions. Visualized bony structures are intact. Soft tissues: Overlying postoperative changes are noted. IMPRESSION: Expected postsurgical change for left knee arthroplasty. Dictated by: Elenita Pepper MD, PhD on 07/10/2023 at 13:20 Approved by: Elenita Pepper MD, PhD on 07/10/2023 at 13:21
[2023-07-10] MEDS: ACETAMINOPHEN 325 MG TABLET 975 MG PO (07:05)
[2023-07-10] MEDS: LACTATED RINGERS 1,000 ML 42 ML IV (07:05)
--- NOTE | 2023-07-10 07:19 | PM.PREOP ---
Pre-operative Note Interval Note History & Physical reviewed/Exam performed by Physician: Yes Changes to H&P: No
--- NOTE | 2023-07-10 07:50 | SUR.PREOP ---
Block start time [0735] . Monitoring initiated and maintained throughout procedure. Oxygen and medications given per anesthesiologist instructions. Patient remained stable throughout procedure, no adverse reactions noted. Block end time [0745].
[2023-07-10] MEDS: CEFAZOLIN VIAL 3 GM in SODIUM CHLORIDE 0.9% 100 ML IV ×3 (08:25→23:11)
--- NOTE | 2023-07-10 09:12 | SUR.OPER ---
Supine on padded OR bed. Pillow under head, arms secured on padded armboards <90 degree abduction, propped with gel pads bilaterally. Safety belt across torso. Non-operative leg secured with tape over blanket over lower leg. Operative leg secured in DeMayo/Neno/Nathe positioner. Foam padded brace at thigh of operative leg.
[2023-07-10] MEDS: VANCOMYCIN 1,000 MG VIAL 1000 MG TOP (09:20)
[2023-07-10] MEDS: TRANEXAMIC ACID 1,000 MG VIAL 1000 MG INJ ×2 (09:29→12:07)
[2023-07-10] MEDS: ROPIVACAINE/EPI/CLONIDINE/KET 50 ML SYRINGE INJ (10:26)
--- NOTE | 2023-07-10 12:40 | PM.OP.1 ---
Operative Date/Time/Diagnoses Date of procedure: 07/10/23 Pre-op diagnosis: Left knee lateral compartment osteoarthritis following prior medial unicompartmental arthroplasty Procedure & Clinicians Procedure: Conversion left unicompartmental knee arthroplasty to total knee arthroplasty Same procedure as scheduled: Yes Surgeon: Zain Henderson Lawnmower Repair Mechanic: Gisella Baez Anesthesia Type: Spinal (LMA), Peripheral nerve block and Other Operative Notes Findings: 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 Closure Type: primary Specimen(s): other (Multiple specimens sent from intra-articular tissues) Prosthetic devices, grafts, tissues, transplants, or devices: Galan and nephew legion total knee arthroplasty with Oxinium size 6 femoral component including a 10 mm distal medial augment and a 12 mm x 160 mm cemented stem with a size 4 tibia with a 10 mm x 100 mm cemented stem Estimated Blood Loss (mL): 350 Tourniquet time (min): 120 Procedure in detail: This 72-year-old male had previously undergone a medial unicompartmental knee arthroplasty. He had progressive pain which was not responsive to nonoperative measures. 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 Inflammatory markers were obtained and were normal, ruling out ongoing infection at those sites. Risks and benefits of surgery were discussed at length. He wished to proceed. He was met in the preoperative holding area the day of surgery and the operative left knee was marked. Informed consent was signed. Risks and benefits were again discussed as well as anticipated postoperative course. He was wheeled back to the operating room and spinal anesthesia was used. An LMA was placed. He was prepped and draped in the usual sterile fashion. A time-out procedure was performed identifying the correct patient, operative site, allergies. Tranexamic acid and Ancef were administered. The tourniquet was inflated I excised his old scar from the medial unicompartmental arthroplasty and extended that incision proximal and distal. I noted some sousa appearing tissue in the anterior distal femur and sent this for culture along with several other cultures. The medial tissues were released off the tibia. The lateral tissues were excised off of the back of the patellar tendon while protecting the patellar tendon. A lateral facetectomy was performed on the patella and all osteophytes were excised. I introduced the opening Reamer into the femur and encountered firm resistance to advancement. I removed the Reamer and inspected the whole and re-evaluated the trajectory of the opening Reamer. I then replaced it. I was able to advance at that time and placed the intramedullary reference. I would later realize that the resistance I had encountered while placing the opening Reamer had likely been to flexion off of sclerotic bone in the femur which had influence the trajectory of the opening Reamer into the posterolateral cortex. A cortical defect had been made and was not identified initially. I proceeded to resect the distal femur including the portion of the medial femoral condyle which was accessible behind the old femoral component of the unicompartmental arthroplasty. I then removed the femoral component using a micro sagittal saw as well as osteotomes. The tibia was then exposed and an intramedullary reference was used to open the tibial canal and referenced off of the medial side. A 9 mm resection was utilized. The tibial joint line was cut with the polyethylene along with the lateral bone. This was resected en bloc. I found that there was excessive lateral tightness and performed a lateral release which corrected this. I then moved to the femur and placed the 4 in 1 block. I measured the rotation and sized it for a size 7 femur. I cut the anterior cut for that size 7 and noted it to be extremely thin. I therefore downsized to a size 6 and immediately noted that I had notched considerably. After removing the four in 1 block and inspecting the femur to determine why downsizing 1 size head caused such a massive difference in the size of my cut I discovered the perforation in the posterior femur. After reorienting the intramedullary referencer for the femur I replaced a distal resection guide and cut a new distal femoral resection. This necessitated an augment on the medial side and I cut for this at that time. That was a 10 mm augment. I prepared the femur for a 160 mm stem. Trials were placed and I noted appropriate stability and soft tissue tension in flexion and extension. With those trials in place I brought in fluoroscopy and obtained x-rays of the femur demonstrating that the stem was now in an appropriate position and had well bypassed the perforation in the posterior cortex as well as the notch and the anterior cortex by obtaining x-rays of those while palpating them with a tonsil. I removed all the trials and bathe the wound in Betadine. I then irrigated the wound. The tibia was exposed and final components were cemented in place. A separate batch of cement was used for the femur and this was likewise cemented in place. A trial polyethylene was placed and the knee was brought into extension and the cement was allowed to harden. I did note that a significant amount of cement had extruded out the perforation in the back of the femur and extracted this. Fluoroscopy was brought back in to ensure that we had adequately bypassed the perforation site as well as the notch site and had a cement mantle extending well into the shaft of the femur. This was confirmed. The wound was again bathed in Betadine and irrigated before being closed. I injected dilute vancomycin through the arthrotomy. Dermabond closure was utilized and a portable incisional wound vacuum device was placed over top of that. He was placed in a knee immobilizer. The patient was awoken from anesthesia and brought to the PACU where he was examined postoperatively and noted to have intact flexion and extension of his hallux and ankle, intact sensation in his foot, and a palpable DP pulse. Post-operative Plan for aftercare: Multimodal pain regimen Wound is to remain in the portable incisional wound VAC device until postoperative follow-up with myself Knee immobilizer to remain in place until follow-up with myself Refrain from physical therapy until the wound has healed Weightbearing as tolerated with the aid of a walker at all times Restart home anticoagulants, apixaban 5 mg, on postoperative day 2 Outpatient prescription for Bactrim for 2 weeks Discharge home after mobilizing with physical therapy
[2023-07-10] MEDS: HYDROMORPHONE 1 MG INJ IV (13:12)
[2023-07-10] MEDS: OXYCODONE IR 5 MG TABLET PO ×3 (13:26→23:10)
[2023-07-10 13:37] LABS: Add Manual Diff / Slide Review NO; Basophils Absolute Auto 0 /uL (0-100); Basophils Percent Auto 0.2 % (0-2); Eosinophils Absolute Auto 0 /uL (0-450); Eosinophils Percent Auto 0.1 % (2-4); Hematocrit 36.3 % (41-53); Hemoglobin 12.2 g/dL (13.5-17.5); Lymphocytes Absolute Auto 800 /uL (1100-4500); Lymphocytes Percent Auto 7.7 % (25-40); Mean Corpuscular HGB Conc 33.7 % (30-36); Mean Corpuscular Hemoglobin 31.8 PG (26-34); Mean Corpuscular Volume 94.3 fL (80-100); Monocytes Absolute Auto 300 /uL (0-900); Monocytes Percent Auto 3.2 % (3-14); Neutrophils Absolute Auto 9300 /uL (1500-7000); Neutrophils Percent Auto 88.8 % (50-75); Platelet Count 169 X10^3/uL (150-400); Red Blood Cell Count 3.85 X10^6/uL (4.5-5.9); Red Cell Distribution Width 13.7 % (11.6-14.8); White Blood Cell Count 10.5 X10^3/uL (4.5-11.0)
--- NOTE | 2023-07-10 14:07 | SUR.PHASEI ---
1353 Pt transferred to room 224 with belongings bag and CPAP machine by Vimal GERMAIN
[2023-07-10] MEDS: LACTATED RINGERS 1,000 ML 100 ML IV (14:52)
[2023-07-10] MEDS: IBUPROFEN 600 MG TABLET PO ×2 (14:53→21:02)
[2023-07-10] MEDS: ACETAMINOPHEN 325 MG TABLET 650 MG PO ×2 (14:53→21:02)
--- NOTE | 2023-07-10 17:16 | PT-IP ANOTE ---
Pt presents semi supine in bed. After PT introduction, the pt reports he does not feel ready to participate in full PT eval, but is agreeable to subjective documentation. Full PT evaluation to be performed tomorrow. All of pt's needs were met and call light was placed within reach.
[2023-07-10] MEDS: ATORVASTATIN 20 MG TABLET 40 MG PO (21:03)
[2023-07-10] MEDS: DOCUSATE 100 MG CAPSULE PO (21:03)
[2023-07-10] MEDS: VANCOMYCIN 1,000 MG/200 ML PIGGYBACK 200 MG IV (21:06)
[2023-07-11 01:01] VITALS: BP 100/53; PULSE 77; RESP 20; TEMP 36.2; O2SAT 95
[2023-07-11] MEDS: LACTATED RINGERS 1,000 ML 100 ML IV ×2 (02:21→15:31)
[2023-07-11 04:48] LABS: Hematocrit 30.7 % (41-53); Hemoglobin 10.5 g/dL (13.5-17.5)
[2023-07-11] MEDS: PANTOPRAZOLE DR 20 MG TABLET PO (06:10)
[2023-07-11] MEDS: OXYCODONE IR 5 MG TABLET PO ×2 (06:10→14:32)
[2023-07-11 07:27] VITALS: BP 117/55; PULSE 86; RESP 18; TEMP 37.6; O2SAT 94
--- NOTE | 2023-07-11 07:54 | PM.PNPO.1 ---
Subjective Subjective Date Patient Seen: 07/11/23 Time Patient Seen: 07:54 Interval history: Pain is moderate to severe. No fever or chills. No nausea or vomiting. Exam Vital Signs (past 8 hours): - 07/11/23 01:01 07/11/23 07:27 Temperature 97.1 F L 99.7 F H Pulse Rate 77 86 Respiratory Rate 20 18 Blood Pressure 100/53 L 117/55 L Pulse Oximetry 95 94 Oxygen Flow Rate 0 0 Oxygen Delivery Method Room Air Oxygen Flow Rate 0 Narrative Exam Narrative: 72-year-old male resting comfortably in bed in no apparent distress. Dressing is clean, dry and intact. Knee immobilizer in place. Motor functions intact distal bilateral lower extremities. Const General: cooperative and comfortable Nutritional Appearance: average body habitus and obese (BMI 40.2) Orientation: alert Resp Effort & Inspection: normal respiratory effort and able to speak in complete sentences Objective Labs 07/11/23 04:30 Labs: Laboratory Results - last 24 hr 07/10/23 07/11/23 13:22 04:30 WBC 10.5 RBC 3.85 L Hgb 12.2 L 10.5 L Hct 36.3 L 30.7 L MCV 94.3 MCH 31.8 MCHC 33.7 RDW 13.7 Plt Count 169 Neut % (Auto) 88.8 H Lymph % (Auto) 7.7 L Warren % (Auto) 3.2 Eos % (Auto) 0.1 L Baso % (Auto) 0.2 Neut # (Auto) 9300 H Lymph # (Auto) 800 L Warren # (Auto) 300 Eos # (Auto) 0 Baso # (Auto) 0 PFSH Medical History (Updated 07/02/23 @ 13:19 by Stephanie Gregg RN) History of obstructive sleep apnea Easy bruisability Skin cancer (~02/2019) History of prosthetic unicompartmental arthroplasty of both knees Hearing impaired Numbness Surgical History (Updated 07/02/23 @ 13:22 by Stephanie Gregg RN) History of bilateral cataract extraction (~2005) History of total left hip arthroplasty (~2011) Hx of tonsillectomy Social History household members: spouse Smoking Status: Never smoker alcohol intake: current Assessment & Plan Post-op Postoperative Procedures: Procedures Operation Date: 07/10/23 07:45 Actual Procedure Side Surgeon p conversion of total knee arthroplasty from prior unicompartmental arthroplasty Left Zain Henderson MD Postoperative day: 1 Postoperative status: doing well Postoperative plan narrative: Khloe dressing on and functioning. Keep dressing clean and dry Knee immobilizer to remain in place until follow-up in clinic with Dr. Henderson We will hold physical therapy until wound has healed Weight-bearing as tolerated in knee immobilizer with walker at all times Restart home anticoagulants apixaban 5 mg, postop day 2 Bactrim for 2 weeks Disposition likely home today or tomorrow Quality VTE Deep Vein Thrombosis/Pulmonary Embolism Present on Admission: No
[2023-07-11] MEDS: DOCUSATE 100 MG CAPSULE PO ×2 (08:44→21:12)
[2023-07-11] MEDS: IBUPROFEN 600 MG TABLET PO ×3 (08:44→18:57)
[2023-07-11] MEDS: ACETAMINOPHEN 325 MG TABLET 650 MG PO ×3 (08:44→18:57)
[2023-07-11 12:00] VITALS: BP 118/58; PULSE 99; RESP 18; TEMP 37.9; O2SAT 91
--- NOTE | 2023-07-11 12:23 | PT.IIE ---
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, initial encounter (07/10/23) Surgery Performed Operation Date: 07/10/23 07:45 Actual Procedures p conversion of total knee arthroplasty from prior unicompartmental arthroplasty(Left) - Zain Henderson MD Surgical History (Last Updated 07/02/23 @ 13:22 by Stephanie Gregg, RN) History of bilateral cataract extraction (~2005) History of total left hip arthroplasty (~2011) Hx of tonsillectomy Medical History (Last Updated 07/02/23 @ 13:19 by Stephanie Gregg, RN) Easy bruisability Hearing impaired History of obstructive sleep apnea History of prosthetic unicompartmental arthroplasty of both knees Numbness Skin cancer (~02/2019) Physical Therapy Inpatient Evaluation/Re-Eval M1 PT/OT-IP Prior Functional Status Start: 07/10/23 17:11 Freq: NEEDED Status: Active Protocol: Document 07/11/23 11:00 MB (Rec: 07/11/23 12:23 [id number]) Medical Review Prior Functional Status Medical History Reviewed Yes Diet/Fluid Consistency Regular Communication Pt is able to express all needs. Mobility and Gait Pt was able to ambulate independently at [facility]. Activities of Daily Living and IADL's Independent with ADLs and IADLs, sometimes limited by pain. Social History Household Members spouse Living Arrangements House Number of Floors (Floors) One Floor Number of Stairs To Enter/Railing? ramp to enter Home Environment Standard Height Toilet,Tub/ Shower,Ramp Home Equipment Front Wheel Walker,Straight Cane,Raised Toilet Seat Without Armrests,Tub Transfer Bench,Hand Held Shower,Long Handled Shoe Horn,Criminal Justice Lawyer,Grab Bars In Shower Employment Status Retired Additional Social History Comment Pt reports his can assist him 28/04 if needed. Of note, pt has hx of right knee TKA and left knee partial arthoplasty M2 PT-IP Current Condition Start: 07/10/23 17:11 Freq: NEEDED Status: Active Protocol: Document 07/11/23 11:00 MB (Rec: 07/11/23 12:23 MB [id number]) Physical Therapy Current Condition Current Condition Evaluation Date 07/11/23 Treatment Diagnosis Left knee TKA, conversion of unicompartmental to TKA Onset Date 07/10/23 M3 PT-IP Subjective Start: 07/10/23 17:11 Freq: NEEDED Status: Active Protocol: Document 07/11/23 11:00 MB (Rec: 07/11/23 12:23 MB [id number]) Subjective Physical Therapy Visit Type Type Initial Evaluation Visit Start Time 11:00 Visit Stop Time 11:53 Total Visit Minutes 53 Notes PT calls orthopedic surgeon and leaves message after eval to communicate SNF recommendation and address any concerns, PT speaks Number of INSURANCE MARKETING SPECIALIST Visits 0 Physical Therapy Visit Comments Patient Comments No specific comments from pt. states, I cannot take him home if he is not mobile. I cannot lift him. She is interested in SNF placement. Therapy Pain Assessment Pain When Pain Assessed At Rest Pain Present Pain Present Pain Reported Location Left Knee Intensity 2 Scale Used Numeric (0 - 10) Description Acute Pain Management Techniques Distraction,Re-positioning M4 PT-IP Mobility and Gait Start: 07/10/23 17:11 Freq: NEEDED Status: Active Protocol: Document 07/11/23 11:00 MB (Rec: 07/11/23 12:23 MB [id number]) PT-Bed Mobility Assessment Supine to Sit Supine to Sit Minimal Assistance,1 Person Assistance,Head of Bed Elevated,Bedrails Scooting Scooting to Edge of Bed Minimal Assistance PT-Transfer Assessment Sit to and From Stand Sit to and from Stand Moderate Assistance,1 Person Assistance,Use of Upper Extremities Equipment Transfer Assistive Device Gait Belt,Front Wheeled Walker Orthotic/Prosthetic Devices or Brace: Yes Transfers Transfer Destination Chair Transfer Technique Stand Step Pivot Transfer Ability Level of Assist Moderate Assistance,1 Person Assistance,Use of Upper Extremities Comments Mobility Comments PT guards LLE in immobilizer for bed mobility and scooting EOB: PT physically holding leg up and pt performing the rest of bed mobility movement. Pt requires cues to keep leg straight and for positioning foot on the floor with leg straight. Pt requires min to mod A for the stepping part of mobility to get to the chair with RW and then max A to unweight LLE and to push weight to right side d/t pt falling back into chair with no control from right leg or hands and PT making sure that left knee does not force bend but that it stays straight in knee immobilizer. Pt with decreased following of safety commands and safety awareness and alarmed and PT concerned about this presentation d/t risk of injurying surgical leg should this manner of transfer con't at d/c. Gait Assessment Gait Gait Assistance Required: Minimum Assistance,Moderate Assistance,1 Person Assist Distance (Feet) 2 Able to Maintain Weight Bearing Status Yes During Gait Assistive Devices Assistive Device Gait Belt,Front Wheeled Walker Orthotic/Prosthetic Devices or Brace: Yes Gait Deviations General Gait Pattern Antalgic,Decreased Stride Length,Decreased Feet Clearance,Step-to Gait,Wide Based Gait Factors Limiting Gait Function Factors Limiting Gait Function Decreased Activity Tolerance, Decreased Strength,Difficulty Following Directions, Incoordination,Limited Range of Motion,Pain,Poor Balance, Poor Safety Awareness Comments Gait Comments Pt takes a few steps with RW, PT verbalizing how to take each step as far as walker, left foot first, then right foot for stepping forward and reverse for retropulsion. Pt has a lot of trouble following commands for this and he requires min to mod A for walker and balance assistance. PT-Balance Assessment Sitting Balance and Reactions Static Sitting Balance Ability Fair Dynamic Sitting Balance Ability Poor Standing Balance and Reactions Static Standing Balance Ability Fair Dynamic Standing Balance Ability Poor Device Used RW M5 PT-IP Objective Assessments Start: 07/10/23 17:11 Freq: NEEDED Status: Active Protocol: Document 07/11/23 11:00 MB (Rec: 07/11/23 12:23 [id number]) Orientation Orientation/Cognition Level of Alertness Alert Orientation Name,Age,Birthday,Month,Date, Year,Day of Week,Place, Situation Language Function Ability No Deficits Noted Safety Awareness Decreased Safety Awareness Memory Description No Deficits Noted Comments Poor body awareness and command-following Gross Range of Motion Lower Extremity ROM Assessment Left Impaired Strength Lower Extremity Strength Assessment Left Impaired Comments Strength Comments Functional RLE movement and pt has limited left ankle DF and PF and edematous foot. Hip and knee on the left limited by immobilizer and assume no flexion in immobilizer Sensation Assessment Comments Sensation Comments Poor communication with attempted sensory input to left foot, grimacing with touching LLE M6 PT-IP Treatment Start: 07/10/23 17:11 Freq: NEEDED Status: Active Protocol: Document 07/11/23 11:00 MB (Rec: 07/11/23 12:23 [id number]) Physical Therapy Treatment Exercises Exercises Ankle Pumps Education Education Provided Precautions,Weight Bearing Status,Safety Other Treatments Other Treatment Performed PT ed pt on no knee bending and how this works with immobilizer with transfers and gait. Pt is unable to follow this education and PT must manage LLE to prevent force bending with stand to sit to recliner d/t pt with poor balance and functional strength performance and awareness and flopping back into seat: max A M7 PT-IP Assessment and Plan Start: 07/10/23 17:11 Freq: NEEDED Status: Active Protocol: Document 07/11/23 11:00 MB (Rec: 07/11/23 12:23 MB [id number]) PT Summary Assessment and Plan Potential Rehabilitation Potential Good Status of Condition at Evaluation Evolving Summary Impairments Pain,ROM,Strength,Balance, Coordination,Bed Mobility, Transfers,Gait,Activity Tolerance Progress Towards Goals Slow Progress due to Pain,Slow Progress due to Medical Issues,Slow Progress due to Activity Tolerance Assessment Summary Pt is a 72 y/o male who underwent left knee conversion from unilateral to TKA last date. 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 He currently requires min to mod A for bed mobility, min to mod A for short stepping with walker and max A to protect left leg and to safely sit d/t decreased functional strength , safety awareness and command -following. Pt did not demonstrate ability to manage LLE extension in immobilizer with transfers and gait today and this puts him at increased risk of breaking precautions of no range in the immobilizer with WB and movement transitions, increases his fall risk and risk of damaging the surgical site. PT, pt and discuss his presentation and states that she cannot manage him at home in his current condition. PT is in agreement and PT recommends SNF at d/c. PT speaks with SW , asks for OT consult order and leaves message for surgeon . Goals Bed Mobility Goal Standby Assistance Transfer Goal Standby Assistance,Front Wheeled Walker Gait Goal Standby Assistance,Front Wheel Walker Gait Distance 75 Days to Meet Goals 5 Frequency of Treatment Frequency Of Treatment Once a Day Treatment Plan Physical Therapy Treatment Plan Bed Mobility Training,Transfer Training,Gait Training, Therapeutic Exercise,Balance Retraining,Discharge Planning, Hot or Cold Pack Precautions Brace Knee immobilizer Other Precautions No ROM left knee, knee in extension position in immobilizer and there is some mild flexion with moving from supine to sitting EOB d/t the weight of his distal LLE against the immobilizer. Attempted to educate pt in how to manage left LE in extension with WB today. He has trouble with this. Weight Bearing Status Weight Bearing Status Weight Bear as Tolerated Allowed Weight Bearing Amount (enter % Walker and knee immobilizer on or #) (%) Recommendations To Nursing Amount of Assist Needed 2 Person Assist Discharge Recommendations PT Discharge Recommendations Home vs SNF Other Discharge Recommendations Currently recommending SNF, will see how pt progress over the next couple of days Transportation Needs at Discharge Wheelchair/Cabulance
[2023-07-11] MEDS: TRIMETH/SULFA 160/800 (DS) TABLET 1 TAB PO ×2 (14:32→21:11)
--- NOTE | 2023-07-11 15:19 | CM.DANOTE ---
Initial DCP Assessment Note Reviewed chart and team rounds for pt status and anticipated d/c needs. Met with pt/spouse at bedside, introduced self and role. Consulted with PT re: concerns and recommendations. Payor: Medicare Attending: Dr. Henderson Pt is a 72 year-old M admitted for left total knee conversion arthroplasty. Post-op day 1. His lengthy surgery was reportedly had complications which are resulting in pt needing a more lenthy inpt stay for initial recovery. His mobility is complex due to having a knee mobilizer, which is to stay in place until his f/u OP visit w/Dr. Henderson. PT recommending SNF due to safety and fall concerns, cg limitations. CONE TENDER spoke with Dr. Henderson re: PT recommendations for SNF rehab. He stated that he would rather pt be d/c home and work on progressing his mobility at home. PT did call him next and explained her concerns, he stated that if pt needs to go to SNF, he will support it, but he'd still rather d/c home-his is not ready for him to come home until he can safely get up and down from his recliner, and be able to ambulate to the bathroom without assistance. Final d/c planning will depend on cont. inpt therapies/his own progress over next day or two. DCP to follow and assist with final d/c planning needs. Discharge Planning/Care Management CM Discharge Assessment Start: 07/11/23 13:54 Freq: Status: Active Protocol: Document 07/11/23 15:10 DPL (Rec: 07/11/23 15:19 DPL [id number]) Discharge Planning Assessment Assigned Police Captain LEILA De Jesus Advance Directives? Yes Advance Directives on File No History Provided By Patient,Family Member,Medical Record Has Patient been admitted in last 30 No days? Prior Living Arrangements House Household Members spouse Type of transporation used prior to Drives own vehicle admit Independent with ADL's Yes Is patient alert and oriented? 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 Patient/Family Preference OP PT Therapy Comment Either OP PT and d/c home, or SNF, pending how he does with therapies over the next couple of days. Extended stay due to complications during surgery. Barriers to Discharge No Discharge Plan Home Transportation Arrangement Family Referrals Initiated None needed Additional Comment Home is preferred, Dr. Henderson made aware of PT concerns re: pt safety, ability to ambulate to bathroom/inability to get up out of a chair. also very concerned about her ability to transfer him safely, he's too heavy for her to move or assist should he start to fall. If patient plan is home with home health No : Has signed face to face form been completed? If patient plan is SNF: Has PASSR been No completed? Whiteboard Updated in Patient Room with Yes name and ext. # of Police Captain Review Status In Process Please Provide Date Initial DC 07/11/23 Assessment Was Performed Pre-Anesthesia Assessment Start: 07/02/23 11:16 Freq: Status: Complete Protocol: Document 07/02/23 11:16 TC (Rec: 07/02/23 11:45 TC [id number]) Pre-Anesthesia Assessment Preferred Name Nader Patient Information Reviewed Via Phone Assessment Assessment Completed With Patient Diagnostic Results BMP/CMP,CBC,EKG Comment 05/19/23- scanned Primary Care Provider Terrence Moore Comment scanned under review visit Medical Clearance Received Yes Seen Specialist in Last 12 Months Yes Specialist Seen Oncologist,Orthopedist,Other Comment Dr QUINTANA Primary Language Amharic Preferred Language Amharic Height 177.8 cm Weight 126.099 kg Body Mass Index (BMI) 39.9 Hearing Ability Hearing Impaired,Use of Hearing Aid Visual Impairment Partially Limited Visual Assist Magnifying Glass Dentition Type Teeth, Natural Present Barriers to Learning None Other Aids No Hx Anesthesia Reactions Yes: It takes a long time for me to wake up Hx Family Anesthesia Reaction No Hx Malignant Hyperthermia No Hx Blood Transfusions Yes: x 4 2012 r/t hip surgeries Hx Blood Transfusion Reaction No Anesthesia Review Requested No 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 No Does patient have EAST/SOB No Hx Sleep Apnea Yes CPAP/BIPAP use prescribed and used routinely Currently Taking a Beta Jesus No Can You Climb a Flight of Stairs Without Yes SOB Hx Chest Pain No Hx SOB No Hx Syncope or Dizziness No Anti-Coagulant Therapy Yes: Aliya, told to hold 3 days prior Has a Neurology Manager No Cardiac Testing No Hx Pacemaker/ICD No Pacemaker Rep Required? 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 Are you experiencing any of these No symptoms symptoms? Evaluation/Screening for possible COVID- Yes 19 infection completed? Received a COVID vaccine? Yes Marital Status Lives With spouse Current Living Arrangements House Number of Floors (Floors) Two Floors Number of Stairs To Enter/Railing? ramp with railing or steps with railing Support System Spouse Does the Patient Have Assistance After Yes Surgery Patient Discharge Plan Description Return Home Feels Safe in Current Environment Yes Been Physically Hurt or Threatened By a No Person in Current Environment If Yes, Provider Notified No Do you have thoughts of harming yourself None or others? Are you currently considering suicide? No Do you have a plan to hurt yourself or No Plan others? If Yes, Provider Notified No Do You Have Any Spiritual Beliefs That No May Affect Your HC Choices? Do You Have Any Cultural Practices That No May Affect Your HC Choices? Who Can We Speak to About Patient's Care family Identifying Code for Release of Patient declines Information Health Care Proxy/Next of Kin Diaz (son) Health Care Proxy Emergency Contact Name Casie () Emergency Contact Advance Directives? Yes Advance Directives on File No Power of Media Services Specialist Yes Power of Media Services Specialist Name Casie Murry Power of Media Services Specialist Phone Number [phone] PAC Instructions Assistance for 24 hours post- op,Bring CPAP/BIPAP,Do not shave/clip surgical site, Durable medical equipment, Medications to take/avoid, Nasal antibiotic,NPO,Pre- surgical wash,Sensory aids, Sturdy shoes/comfortable clothes,Do not bring valuables and remove jewelry
[2023-07-11] MEDS: HYDROXYCHLOROQUINE 200 MG TABLET 400 MG PO (15:35)
[2023-07-11 18:00] VITALS: BP 126/65; PULSE 92; RESP 18; TEMP 37.3; O2SAT 91
[2023-07-11 20:00] VITALS: BP 142/64; PULSE 87; RESP 19; TEMP 36.3; O2SAT 92
[2023-07-11] MEDS: ATORVASTATIN 20 MG TABLET 40 MG PO (21:12)
[2023-07-12] VITALS: BP 127/70; PULSE 80; RESP 17; TEMP 36.1; O2SAT 95
[2023-07-12] MEDS: ACETAMINOPHEN 325 MG TABLET 650 MG PO ×4 (04:00→18:57)
[2023-07-12] MEDS: IBUPROFEN 600 MG TABLET PO ×4 (04:01→18:57)
[2023-07-12 06:00] VITALS: BP 119/61; PULSE 80; RESP 17; TEMP 36.3; O2SAT 96
[2023-07-12] MEDS: PANTOPRAZOLE DR 20 MG TABLET PO (06:15)
[2023-07-12] MEDS: HYDROXYCHLOROQUINE 200 MG TABLET 400 MG PO (08:33)
[2023-07-12] MEDS: DOCUSATE 100 MG CAPSULE PO (08:33)
[2023-07-12] MEDS: TRIMETH/SULFA 160/800 (DS) TABLET 1 TAB PO ×2 (08:33→20:43)
--- NOTE | 2023-07-12 09:14 | PM.DS.1 ---
History of Present Illness History of Present Illness Date Patient Seen: 07/12/23 Time Patient Seen: 09:14 Chief complaint: INPT Narrative: Operative Date/Time/Diagnoses Date of procedure: 07/10/23 Pre-op diagnosis: Left knee lateral compartment osteoarthritis following prior medial unicompartmental arthroplasty Procedure & Clinicians Procedure: Conversion left unicompartmental knee arthroplasty to total knee arthroplasty Same procedure as scheduled: Yes Surgeon: Zain Henderson Senior Editor: Gisella Baez Anesthesia Type: Spinal (LMA), Peripheral nerve block and Other Operative Notes Findings: 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 Closure Type: primary Specimen(s): other (Multiple specimens sent from intra-articular tissues) Prosthetic devices, grafts, tissues, transplants, or devices: Galan and nephew legion total knee arthroplasty with Oxinium size 6 femoral component including a 10 mm distal medial augment and a 12 mm x 160 mm cemented stem with a size 4 tibia with a 10 mm x 100 mm cemented stem Estimated Blood Loss (mL): 350 Tourniquet time (min): 120 Discharge Providers Provider Date of admission: 07/10/23 06:33 Discharge Date: 07/12/23 Primary care physician: Terrence Moore DO Consults: 07/10/23 06:37 Consult to Anesthesiology Routine Comment: Consulting Provider: Anesthesiologist Reason for consultation: Regional block for post operative pain control 07/10/23 13:45 Consult to Discharge Planning Routine Comment: Consult to Physical Therapy Evaluate & Treat Comment: Physician Instructions: postop TKA protocol Discharge provider: Gisella Baez PA-C Summary Hospital Course Discharge Diagnosis: Left knee lateral compartment osteoarthritis following prior medial unicompartmental arthroplasty; Conversion left unicompartmental knee arthroplasty to total knee arthroplasty Hospital Course: Mr Murry's hospital course was remarkable for difficulty transferring with knee immobilizer in place. He worked with PT and on the morning of POD# 2 was feeling more confident about going home. He was eating and voiding without difficulty and his pain was well-controlled with oral medication. Exam Vital Signs (past 8 hours): - 07/12/23 06:00 Temperature 97.3 F L Pulse Rate 80 Respiratory Rate 17 Blood Pressure 119/61 Pulse Oximetry 96 Oxygen Delivery Method Room Air Oxygen Flow Rate 0 Narrative Exam Narrative: 5/5 strength in DF, PF, EHL on left. Sensation to touch intact throughout LLE. AUTUMN over JONAS CDI. JONAS functioning. Objective Labs 10/06/23 04:30 [facility] Medical History (Updated 07/02/23 @ 13:19 by Stephanie Gregg RN) History of obstructive sleep apnea Easy bruisability Skin cancer (~02/2019) History of prosthetic unicompartmental arthroplasty of both knees Hearing impaired Numbness Surgical History (Updated 07/12/23 @ 09:15 by Gisella Baez PA-C) History of bilateral cataract extraction (~2005) History of total left hip arthroplasty (~2011) Hx of tonsillectomy Social History household members: spouse Smoking Status: Never smoker alcohol intake: current Discharge Assessment & Plan Assessment and Plan Assessment: Left knee lateral compartment osteoarthritis following prior medial unicompartmental arthroplasty; Conversion left unicompartmental knee arthroplasty to total knee arthroplasty Plan of Treatment: Discharge home later today if PT agrees. Continue Eliquis for VTE prophylaxis, multimodal pain control, f/u in office in 2 weeks as scheduled. WBAT to left leg with knee immobilizer in place. Discharge Plan Discharge Plan Patient Disposition: Home Discharge orders & Medications Prescriptions: New docusate sodium 100 mg Capsule 100 mg PO BID PRN (Reason: constipation) Qty: 60 1RF oxycodone 5 mg Tablet 5 mg PO Q4-6H PRN (Reason: Pain, Moderate (4-6)) Qty: 60 0RF Continued apixaban 5 mg tablet 5 mg PO BID Qty: 70 0RF Rx Instructions: 2T PO BID for 7 days then 1T PO BID after celecoxib [Celebrex] 200 mg Capsule 200 mg PO DAILY sulfasalazine 500 mg tablet 1,500 mg PO BID leflunomide [Arava] 10 mg Tablet 10 mg PO DAILY betamethasone dipropionate 0.05 % Cream 1 applic TOPICAL BID PRN (Reason: Itching) omeprazole 20 mg capsule,delayed release(DR/EC) 20 mg PO DAILY hydrochlorothiazide 25 mg Tablet 25 mg PO DAILY hydroxychloroquine 200 mg tablet 400 mg PO DAILY acetaminophen [Tylenol] 325 mg Capsule 650 mg PO PRN PRN (Reason: pain) atorvastatin 40 mg Tablet 40 mg PO BEDTIME Centrum Adults 12 mcg Tablet,Chewable 1 tab PO DAILY Follow up/Referrals: Terrence Moore DO [Primary Care Provider] - Zain Henderson MD [Physician] - As previously scheduled (Follow up with Dr Henderson on 07/21/2023 @ 1:30 pm at [facility] office in [place].) Diet/Activity/Treatments Diet: Diet as Tolerated Activity: Weightbearing as tolerated on left leg with knee immobilizer in place. May have off to shower; keep leg straight on shower chair. No outpatient PT until after next appt w/ Dr Henderson. Cold/Heat Therapy: Ice to knee as needed for pain. Skin/Wound/Dressing Care Report to your healthcare provider any signs of infection, such as:: chills, fever, night sweats, unusual drainage and unusual redness Dressing: May remove AUTUMN wrap and shower; leave dressing in place until follow up in office. Batteries will in 5-7 days, at which point you can remove battery pack and dispose of it. No bathing or otherwise soaking incision. Call the office if the dressing becomes saturated inside. Visit Report/Discharge Packet Instructions: DI for Knee Replacement, DI for Prescription Opioid Use Stand Alone Forms: Patient Portal/API, Stroke Signs & Symptoms, Surgery Discharge Discharge Data Primary Care Provider: Terrence Moore VTE Deep Vein Thrombosis/Pulmonary Embolism Present on Admission: No
[2023-07-12] MEDS: OXYCODONE IR 5 MG TABLET PO (09:29)
--- NOTE | 2023-07-12 10:53 | PT.IPTN ---
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, initial encounter (07/10/23) Presence of unspecified artificial knee joint (07/10/23) Surgery Performed Operation Date: 07/10/23 07:45 Actual Procedures p conversion of total knee arthroplasty from prior unicompartmental arthroplasty(Left) - Zain Henderson MD Physical Therapy Treatment Note M2 PT-IP Current Condition Start: 07/10/23 17:11 Freq: NEEDED Status: Active Protocol: Document 07/11/23 11:00 MB (Rec: 07/11/23 12:23 MB [id number]) Physical Therapy Current Condition Current Condition Evaluation Date 07/11/23 Treatment Diagnosis Left knee TKA, conversion of unicompartmental to TKA Onset Date 07/10/23 M3 PT-IP Subjective Start: 07/10/23 17:11 Freq: NEEDED Status: Active Protocol: Document 07/12/23 10:33 AMB (Rec: 07/12/23 10:53 AMB [id number]) Subjective Physical Therapy Visit Type Type Treatment Note Visit Start Time 09:00 Visit Stop Time 09:30 Total Visit Minutes 30 Physical Therapy Visit Comments Patient Comments Pt needs to use the restroom, slept well last night. Knee immobilizer is on. M4 PT-IP Mobility and Gait Start: 07/10/23 17:11 Freq: NEEDED Status: Active Protocol: Document 07/12/23 10:33 AMB (Rec: 07/12/23 10:53 AMB [id number]) PT-Bed Mobility Assessment Supine to Sit Supine to Sit Moderate Assistance,1 Person Assistance,Bedrails Scooting Scooting to Edge of Bed Minimal Assistance PT-Transfer Assessment Sit to and From Stand Sit to and from Stand Minimal Assistance,1 Person Assistance,Use of Upper Extremities Equipment Transfer Assistive Device Gait Belt,Front Wheeled Walker Orthotic/Prosthetic Devices or Brace: Yes Transfers Transfer Destination Chair,Toilet Transfer Technique Stand Step Pivot Transfer Ability Level of Assist Moderate Assistance,1 Person Assistance,Use of Upper Extremities Comments Mobility Comments Pt assists L LE in bed, and provides trunk support for scooting as pt felt like he was in a hole in the bed. Pt has little eccentric control with stand to sit and was able to keep L LE straight with it kicked out ahead of him, but plops quite unsafely when sitting down. Gait Assessment Gait Gait Assistance Required: Minimum Assistance Distance (Feet) 10 Able to Maintain Weight Bearing Status Yes During Gait Assistive Devices Assistive Device Gait Belt,Front Wheeled Walker Gait Deviations General Gait Pattern Antalgic,Decreased Stride Length,Decreased Feet Clearance,Step-to Gait,Wide Based Gait Factors Limiting Gait Function Factors Limiting Gait Function Decreased Activity Tolerance, Decreased Strength,Difficulty Following Directions, Incoordination,Limited Range of Motion,Pain,Poor Balance, Poor Safety Awareness Comments Gait Comments Pt showed improved gait in comparison to yesterday. Was able to ambulate with FWW ( adjusted height of FWW to be much higher to fit his height) . Fatigues quickly. M5 PT-IP Objective Assessments Start: 07/10/23 17:11 Freq: NEEDED Status: Active Protocol: Document 07/11/23 11:00 MB (Rec: 07/11/23 12:23 [id number]) Orientation Orientation/Cognition Level of Alertness Alert Orientation Name,Age,Birthday,Month,Date, Year,Day of Week,Place, Situation Language Function Ability No Deficits Noted Safety Awareness Decreased Safety Awareness Memory Description No Deficits Noted Comments Poor body awareness and command-following Gross Range of Motion Lower Extremity ROM Assessment Left Impaired Strength Lower Extremity Strength Assessment Left Impaired Comments Strength Comments Functional RLE movement and pt has limited left ankle DF and PF and edematous foot. Hip and knee on the left limited by immobilizer and assume no flexion in immobilizer Sensation Assessment Comments Sensation Comments Poor communication with attempted sensory input to left foot, grimacing with touching LLE M6 PT-IP Treatment Start: 07/10/23 17:11 Freq: NEEDED Status: Active Protocol: Document 07/11/23 11:00 MB (Rec: 07/11/23 12:23 [id number]) Physical Therapy Treatment Exercises Exercises Ankle Pumps Education Education Provided Precautions,Weight Bearing Status,Safety Other Treatments Other Treatment Performed PT ed pt on no knee bending and how this works with immobilizer with transfers and gait. Pt is unable to follow this education and PT must manage LLE to prevent force bending with stand to sit to recliner d/t pt with poor balance and functional strength performance and awareness and flopping back into seat: max A M7 PT-IP Assessment and Plan Start: 07/10/23 17:11 Freq: NEEDED Status: Active Protocol: Document 07/12/23 10:33 AMB (Rec: 07/12/23 10:53 AMB [id number]) PT Summary Assessment and Plan Summary Assessment Summary Nader improved his gait tolerance today, ambulating 5 feet x 2 with Tori. His biggest challenges are bed mobility and sit to stand, for which he requires ModA and pushes hard with both of his arms. He would not be safe to return home yet, as his has said that he needs to be able to get up from his chair without her physically assisting him. It is possible that, if he continues improving in PT that he might be able to go home, but currently he is certainly unsafe to go home and would benefit from SNF rehab. Clarified with PA that no PT until wound is healed is in reference to outpatient PT. Changed frequency to 2x/day as Nader is tolerating more and would benefit from more frequent PT, although sessions will quite likely be short due to quick to fatigue. Goals Bed Mobility Goal Standby Assistance Transfer Goal Standby Assistance,Front Wheeled Walker Gait Goal Standby Assistance,Front Wheel Walker Gait Distance 75 Days to Meet Goals 5 Frequency of Treatment Frequency Of Treatment Twice a Day Treatment Plan Physical Therapy Treatment Plan Bed Mobility Training,Transfer Training,Gait Training, Therapeutic Exercise,Balance Retraining,Discharge Planning, Hot or Cold Pack Precautions Brace Knee immobilizer Other Precautions No ROM left knee, knee in extension position in immobilizer Weight Bearing Status Weight Bearing Status Weight Bear as Tolerated Allowed Weight Bearing Amount (enter % Walker and knee immobilizer on or #) (%) Recommendations To Nursing Amount of Assist Needed 2 Person Assist Discharge Recommendations PT Discharge Recommendations Home vs SNF Other Discharge Recommendations Currently recommending SNF, will see how pt progress over the next couple of days. Transportation Needs at Discharge Wheelchair/Cabulance
--- NOTE | 2023-07-12 11:16 | CM.DPC ---
Addendum entered by Daily White R.N. 07/12/23 13:48: Met with patient and again to determine DCP with DC orders for today. Bedside RN Felicia relays that it still require 2 nurses with full assist to mobilize patient from chair to standing with FWW. PT Navya in for re-assessment now. now agrees he is not safe for home with current support needs. Packets faxed to choices 1. [facility] 2. [facility] 3. [facility] in [place]. Original Note: Met with patient and his at bedside to discuss DC plan. They state they opt for home, but as per bedside RN patient required a lot of support from two nursing staff members to get OOB to chair. has limited ability to assist with mobility at home. She outlines that they have a ramp into house, but then 2 stairs beyond ramp. Patient is morbidly obese and deconditioned. She also outlines challenges with getting in and out of their SUV. SNF list offered. Mel states [facility] [place] [facility] is just one mile from their home and that would be likely first choice. They want to see how he does with mobility this afternoon after lunch. Discussed with bedside RN. CM team awaiting afternoon eval prior to placing referrals for SNF.
[2023-07-12 13:00] VITALS: BP 122/68; PULSE 82; RESP 18; TEMP 36.6; O2SAT 97
--- NOTE | 2023-07-12 13:17 | PT.IPTN ---
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, initial encounter (07/10/23) Presence of unspecified artificial knee joint (07/10/23) Surgery Performed Operation Date: 07/10/23 07:45 Actual Procedures p conversion of total knee arthroplasty from prior unicompartmental arthroplasty(Left) - Zain Henderson MD Physical Therapy Treatment Note M2 PT-IP Current Condition Start: 07/10/23 17:11 Freq: NEEDED Status: Active Protocol: Document 07/11/23 11:00 MB (Rec: 07/11/23 12:23 MB [id number]) Physical Therapy Current Condition Current Condition Evaluation Date 07/11/23 Treatment Diagnosis Left knee TKA, conversion of unicompartmental to TKA Onset Date 07/10/23 M3 PT-IP Subjective Start: 07/10/23 17:11 Freq: NEEDED Status: Active Protocol: Document 07/12/23 13:17 AB (Rec: 07/12/23 14:51 AB [id number]) Subjective Physical Therapy Visit Type Type Treatment Note Visit Start Time 13:17 Visit Stop Time 14:05 Total Visit Minutes 48 Number of [employer] Visits 0 Physical Therapy Visit Comments Patient Comments agreeable to do PT Therapy Pain Assessment Pain When Pain Assessed During Mobility Location Left Knee Scale Used pain scale not stated Pain Management Techniques Distraction,Modification of Treatment,Re-positioning, Timing of Activity with Medications M4 PT-IP Mobility and Gait Start: 07/10/23 17:11 Freq: NEEDED Status: Active Protocol: Document 07/12/23 13:17 AB (Rec: 07/12/23 14:51 AB [id number]) PT-Bed Mobility Assessment Sit to Supine Sit to Supine Maximum Assistance,Bedrails PT-Transfer Assessment Sit to and From Stand Sit to and from Stand Maximum Assistance,1 Person Assistance,2 Person Assistance ,Use of Upper Extremities Equipment Transfer Assistive Device Gait Belt,Front Wheeled Walker Orthotic/Prosthetic Devices or Brace: No Transfers Transfer Destination Bed Transfer Technique ambulated Transfer Ability Level of Assist Moderate Assistance,Maximum Assistance,1 Person Assistance ,Use of Upper Extremities Comments Mobility Comments nurse informed PT that pt wanting to go back to bed. pt sitting on the chair and agreed to do PT first. educated pt on sit<>stand techniques with L LE positioning with knee immobilizer. completed sit to stand and unable to complete with max A x 1 with 2 attempts . pt tends to rotate trunk towards the R during sit to stand. nurse came in to assist. completed sit to stand again max A x 2 and max cues. ambulated towards the EOB max A x 1 and max cues. presents with unsteady antalgic gait with slight L knee buckling. cued pt for quads activation on LLE. pt sat on EOB. (+) SOB. pt rested. educated on sit<>stand again. completed sit <>stand from EOB x 3 max A and max cues. pt with L hand on FWW to push from for sit to stand. pt requested to go back in bed. completed bed mobility sit to supine max A and max cues. positioned pt in bed. spouse in room. educated pt regarding bed exercises: ankle pumps, quads and glute sets as tolerated. pt and spouse agreed to SNF rehab. case filler aware. Gait Assessment Gait Gait Assistance Required: Moderate Assistance,Maximum Assistance Distance (Feet) 12 Able to Maintain Weight Bearing Status Yes During Gait Assistive Devices Assistive Device Gait Belt,Front Wheeled Walker Orthotic/Prosthetic Devices or Brace: No Gait Deviations General Gait Pattern Antalgic,Decreased Stride Length,Decreased Feet Clearance,Step-to Gait Factors Limiting Gait Function Factors Limiting Gait Function Decreased Activity Tolerance, Decreased Strength,Difficulty Following Directions,Pain,Poor Balance,Poor Safety Awareness ,Respiratory Distress M5 PT-IP Objective Assessments Start: 07/10/23 17:11 Freq: NEEDED Status: Active Protocol: Document 07/11/23 11:00 MB (Rec: 07/11/23 12:23 MB [id number]) Orientation Orientation/Cognition Level of Alertness Alert Orientation Name,Age,Birthday,Month,Date, Year,Day of Week,Place, Situation Language Function Ability No Deficits Noted Safety Awareness Decreased Safety Awareness Memory Description No Deficits Noted Comments Poor body awareness and command-following Gross Range of Motion Lower Extremity ROM Assessment Left Impaired Strength Lower Extremity Strength Assessment Left Impaired Comments Strength Comments Functional RLE movement and pt has limited left ankle DF and PF and edematous foot. Hip and knee on the left limited by immobilizer and assume no flexion in immobilizer Sensation Assessment Comments Sensation Comments Poor communication with attempted sensory input to left foot, grimacing with touching LLE M6 PT-IP Treatment Start: 07/10/23 17:11 Freq: NEEDED Status: Active Protocol: Document 07/12/23 13:17 AB (Rec: 07/12/23 14:51 AB [id number]) Physical Therapy Treatment Education Education Provided Safety M7 PT-IP Assessment and Plan Start: 07/10/23 17:11 Freq: NEEDED Status: Active Protocol: Document 07/12/23 13:17 AB (Rec: 07/12/23 14:51 AB [id number]) PT Summary Assessment and Plan Potential Rehabilitation Potential Fair Summary Impairments Pain,ROM,Strength,Balance, Coordination,Sensation,Tone, Cognition,Bed Mobility, Transfers,Gait,Activity Tolerance Progress Towards Goals Slow Progress due to Activity Tolerance,Slow Progress - Other Assessment Summary pt requiring max A x 2 from chair and max A x 1 from elevated bed; able to ambulate using FWW mod to max A and max cues. pt's spouse that she will not be able to provide much physical assist to pt. informed spouse regarding pt's current mobility assistance and recommendation of SNF rehab. pt and spouse agreed. Goals Bed Mobility Goal Standby Assistance Transfer Goal Standby Assistance,Front Wheeled Walker Gait Goal Standby Assistance,Front Wheel Walker Gait Distance 75 Days to Meet Goals 10 Frequency of Treatment Frequency Of Treatment Twice a Day Treatment Plan Physical Therapy Treatment Plan Bed Mobility Training,Transfer Training,Gait Training, Therapeutic Exercise,Balance Retraining,Discharge Planning, Hot or Cold Pack Precautions Brace LLE Knee immobilizer Other Precautions Per ortho MD: No outpt PT until L wound/incision heals Weight Bearing Status Weight Bearing Status Weight Bear as Tolerated Allowed Weight Bearing Amount (enter % LLE: Walker and knee or #) (%) immobilizer on Recommendations To Nursing Amount of Assist Needed 2 Person Assist Discharge Recommendations PT Discharge Recommendations SNF Rehab Transportation Needs at Discharge Wheelchair/Cabulance
[2023-07-12 18:00] VITALS: BP 120/63; PULSE 80; RESP 17; TEMP 36.4; O2SAT 98
[2023-07-12 20:00] VITALS: BP 140/57; PULSE 87; RESP 20; TEMP 36.7; O2SAT 92
[2023-07-12] MEDS: APIXABAN 5 MG TABLET PO (20:35)
[2023-07-12] MEDS: ATORVASTATIN 20 MG TABLET 40 MG PO (20:35)
[2023-07-12 23:00] VITALS: BP 107/85; PULSE 78; RESP 12; RESP 17; TEMP 36.3; O2SAT 90; O2SAT 93
[2023-07-13] VITALS: BP 107/85; PULSE 78; RESP 12; TEMP 36.3; O2SAT 90
[2023-07-13 06:00] VITALS: BP 140/71; PULSE 80; RESP 19; TEMP 36.1; O2SAT 96
[2023-07-13] MEDS: PANTOPRAZOLE DR 20 MG TABLET PO (06:36)
--- NOTE | 2023-07-13 07:50 | P.DS_ITS ---
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 Closure Type: primary Specimen(s): other (Multiple specimens sent from intra-articular tissues) Prosthetic devices, grafts, tissues, transplants, or devices: Galan and nephew legion total knee arthroplasty with Oxinium size 6 femoral component including a 10 mm distal medial augment and a 12 mm x 160 mm cemented stem with a size 4 tibia with a 10 mm x 100 mm cemented stem Estimated Blood Loss (mL): 350 Tourniquet time (min): 120 Discharge Providers Provider Date of admission: 07/10/23 06:33 Discharge Date: 08/14/23 Primary care physician: Terrence Moore DO Consults: 07/10/23 06:37 Consult to Anesthesiology Routine Comment: Consulting Provider: Anesthesiologist Reason for consultation: Regional block for post operative pain control 07/10/23 13:45 Consult to Discharge Planning Routine Comment: Consult to Physical Therapy Evaluate & Treat Comment: Physician Instructions: postop TKA protocol Discharge provider: Gisella Baez PA-C Exam Vital Signs (past 8 hours): - 07/13/23 00:00 07/13/23 06:00 Temperature 97.4 F L 96.9 F L Pulse Rate 78 80 Respiratory Rate 12 19 Blood Pressure 107/85 140/71 Pulse Oximetry 90 L 96 Oxygen Delivery Method Room Air Oxygen Flow Rate 0 Objective Labs 07/11/23 04:30 [facility] Medical History (Updated 07/02/23 @ 13:19 by Stephanie Gregg RN) History of obstructive sleep apnea Easy bruisability Skin cancer (~02/2019) History of prosthetic unicompartmental arthroplasty of both knees Hearing impaired Numbness Surgical History (Updated 07/12/23 @ 09:15 by Gisella Baez PA-C) History of bilateral cataract extraction (~2005) History of total left hip arthroplasty (~2011) Hx of tonsillectomy Social History household members: spouse Smoking Status: Never smoker alcohol intake: current Discharge Assessment & Plan Assessment and Plan Assessment: Left knee lateral compartment osteoarthritis following prior medial unicompartmental arthroplasty; Conversion left unicompartmental knee arthroplasty to total knee arthroplasty Plan of Treatment: Discharge home later today if PT agrees. Continue Eliquis for VTE prophylaxis, multimodal pain control, f/u in office in 2 weeks as scheduled. WBAT to left leg with knee immobilizer in place. Discharge Plan Discharge Plan Patient Disposition: Home Health Service Discharge orders & Medications Prescriptions: New docusate sodium 100 mg Capsule 100 mg PO BID PRN (Reason: constipation) Qty: 60 1RF oxycodone 5 mg Tablet 5 mg PO Q4-6H PRN (Reason: Pain, Moderate (4-6)) Qty: 60 0RF oxycodone 5 mg tablet 5 mg PO Q4H PRN (Reason: pain (scale score 4-6)) Qty: 60 0RF Continued apixaban 5 mg tablet 5 mg PO BID Qty: 70 0RF Rx Instructions: 2T PO BID for 7 days then 1T PO BID after celecoxib [Celebrex] 200 mg Capsule 200 mg PO DAILY sulfasalazine 500 mg tablet 1,500 mg PO BID leflunomide [Arava] 10 mg Tablet 10 mg PO DAILY betamethasone dipropionate 0.05 % Cream 1 applic TOPICAL BID PRN (Reason: Itching) omeprazole 20 mg capsule,delayed release(DR/EC) 20 mg PO DAILY hydrochlorothiazide 25 mg Tablet 25 mg PO DAILY hydroxychloroquine 200 mg tablet 400 mg PO DAILY acetaminophen [Tylenol] 325 mg Capsule 650 mg PO PRN PRN (Reason: pain) atorvastatin 40 mg Tablet 40 mg PO BEDTIME Centrum Adults 12 mcg Tablet,Chewable 1 tab PO DAILY Follow up/Referrals: Terrence Moore DO [Primary Care Provider] - Zain Henderson MD [Physician] - As previously scheduled (Follow up with Dr Henderson on 07/21/2023 @ 1:30 pm at [facility] office in [place].) Diet/Activity/Treatments Diet: Diet as Tolerated Activity: Weightbearing as tolerated on left leg with knee immobilizer in place. May have off to shower; keep leg straight on shower chair. No outpatient PT until after next appt w/ Dr Henderson. Cold/Heat Therapy: Ice to knee as needed for pain. Skin/Wound/Dressing Care Report to your healthcare provider any signs of infection, such as:: chills, fever, night sweats, unusual drainage and unusual redness Dressing: May remove AUTUMN wrap and shower; leave dressing in place until follow up in office. Batteries will in 5-7 days, at which point you can remove battery pack and dispose of it. No bathing or otherwise soaking incision. Call the office if the dressing becomes saturated inside. Visit Report/Discharge Packet Instructions: DI for Knee Replacement, DI for Prescription Opioid Use Stand Alone Forms: Patient Portal/API, Stroke Signs & Symptoms, Surgery Discharge Discharge Data Primary Care Provider: Terrence Moore VTE Deep Vein Thrombosis/Pulmonary Embolism Present on Admission: No
[2023-07-13 08:00] VITALS: BP 141/72; PULSE 84; RESP 17; TEMP 36.6; O2SAT 96
[2023-07-13] MEDS: HYDROXYCHLOROQUINE 200 MG TABLET 400 MG PO (08:36)
[2023-07-13] MEDS: ACETAMINOPHEN 325 MG TABLET 650 MG PO ×3 (08:36→19:37)
[2023-07-13] MEDS: APIXABAN 5 MG TABLET PO ×2 (08:37→20:34)
[2023-07-13] MEDS: IBUPROFEN 600 MG TABLET PO ×3 (08:37→19:37)
[2023-07-13] MEDS: OXYCODONE IR 5 MG TABLET PO (09:10)
--- NOTE | 2023-07-13 09:45 | PT.IPTN ---
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, initial encounter (07/10/23) Presence of unspecified artificial knee joint (07/10/23) Surgery Performed Operation Date: 07/10/23 07:45 Actual Procedures p conversion of total knee arthroplasty from prior unicompartmental arthroplasty(Left) - Zain Henderson MD Physical Therapy Treatment Note M2 PT-IP Current Condition Start: 07/10/23 17:11 Freq: NEEDED Status: Active Protocol: Document 07/11/23 11:00 MB (Rec: 07/11/23 12:23 MB [id number]) Physical Therapy Current Condition Current Condition Evaluation Date 07/11/23 Treatment Diagnosis Left knee TKA, conversion of unicompartmental to TKA Onset Date 07/10/23 M3 PT-IP Subjective Start: 07/10/23 17:11 Freq: NEEDED Status: Active Protocol: Document 07/13/23 10:46 AB (Rec: 07/13/23 11:09 AB [id number]) Subjective Physical Therapy Visit Type Type Treatment Note Visit Start Time 09:02 Visit Stop Time 09:45 Total Visit Minutes 43 Physical Therapy Visit Comments Patient Comments Pt is agreeable to PT this morning. States his current pain levels are 1-2/10 but elevate when he is moving. Of note, he also reports that the upper portion of his knee immobilizer is digging into his groin, and he feels like that area is raw. Therapy Pain Assessment Pain When Pain Assessed During Mobility Pain Present Pain Present Pain Reported Location Left Knee Intensity 6 Scale Used Numeric (0 - 10) Pain Behaviors Facial Grimacing,Wincing Pain Management Techniques Apply Cold,Distraction, Elevation,Re-positioning, Timing of Activity with Medications M4 PT-IP Mobility and Gait Start: 07/10/23 17:11 Freq: NEEDED Status: Active Protocol: Document 07/13/23 10:46 AB (Rec: 07/13/23 11:09 AB [id number]) PT-Bed Mobility Assessment Supine to Sit Supine to Sit Moderate Assistance,1 Person Assistance,Head of Bed Elevated,Bedrails Sit to Supine Sit to Supine Maximum Assistance,Bedrails Scooting Scooting to Edge of Bed Standby Assistance PT-Transfer Assessment Sit to and From Stand Sit to and from Stand Maximum Assistance,1 Person Assistance,Use of Upper Extremities Equipment Transfer Assistive Device Gait Belt,Front Wheeled Walker Orthotic/Prosthetic Devices or Brace: Yes Transfers Transfer Destination Bed,Toilet Transfer Technique Stand Step Pivot Transfer Ability Level of Assist Moderate Assistance,1 Person Assistance,Use of Upper Extremities Comments Mobility Comments Pt received pain medication prior to performing mobility to decrease pain. Pt requires mod-maxA with bed mobility, in part due to difficulty moving LLE and being unable to flex knee, which he requires assistance from PT to lift and mobilize LLE. He requires mod -maxA to perform STS from bed using BUEs and FWW, but has good recall of putting his LLE forward. Pt requested to use restroom and ambulated to restroom. He required modA to transfer to toilet, but then maxA x1 to perform STS from toilet due to lower seat height. The pt then ambulated back to bed where he required modA for sit<>supine, with PT assisting BLEs. At end of session, RN was called to check skin due to pt's reports , and RN states there is a small blister where the pt complains of irritation. The pt's knee immobilizer was removed in order to allow ice packs to be placed to reduce swelling of LLE. PT instructed pt to call for assistance to put brace on and to remove ice after ~20 minutes. Pt verbalizes understanding, and verbalizes understanding of avoiding knee flexion especially when brace is off. Pt's call light was placed within reach, all needs met and bed alarm is set. Gait Assessment Gait Gait Assistance Required: Contact Guard Assist,1 Person Assist Distance (Feet) 10 Able to Maintain Weight Bearing Status Yes During Gait Assistive Devices Assistive Device Gait Belt,Front Wheeled Walker Orthotic/Prosthetic Devices or Brace: No Gait Deviations General Gait Pattern Antalgic,Decreased Stride Length,Decreased Feet Clearance,Step-to Gait Factors Limiting Gait Function Factors Limiting Gait Function Decreased Activity Tolerance, Decreased Strength,Difficulty Following Directions,Pain,Poor Balance,Poor Safety Awareness ,Respiratory Distress Comments Gait Comments Pt ambulated from bed to bathroom with CGA and demonstrates good recall of education provided regarding sequencing of step to gait to maintain knee extended. The pt shows good stability and no significant LOB, though relies heavily on UEs to support himself. M5 PT-IP Objective Assessments Start: 07/10/23 17:11 Freq: NEEDED Status: Active Protocol: Document 07/11/23 11:00 MB (Rec: 07/11/23 12:23 MB [id number]) Orientation Orientation/Cognition Level of Alertness Alert Orientation Name,Age,Birthday,Month,Date, Year,Day of Week,Place, Situation Language Function Ability No Deficits Noted Safety Awareness Decreased Safety Awareness Memory Description No Deficits Noted Comments Poor body awareness and command-following Gross Range of Motion Lower Extremity ROM Assessment Left Impaired Strength Lower Extremity Strength Assessment Left Impaired Comments Strength Comments Functional RLE movement and pt has limited left ankle DF and PF and edematous foot. Hip and knee on the left limited by immobilizer and assume no flexion in immobilizer Sensation Assessment Comments Sensation Comments Poor communication with attempted sensory input to left foot, grimacing with touching LLE M6 PT-IP Treatment Start: 07/10/23 17:11 Freq: NEEDED Status: Active Protocol: Document 07/13/23 10:46 AB (Rec: 07/13/23 11:09 AB [id number]) Physical Therapy Treatment Exercises Exercises Ankle Pumps Education Education Provided Precautions,Safety Other Treatments Other Treatment Performed left ankle pumps x20 M7 PT-IP Assessment and Plan Start: 07/10/23 17:11 Freq: NEEDED Status: Active Protocol: Document 07/13/23 10:46 AB (Rec: 07/13/23 11:09 AB [id number]) PT Summary Assessment and Plan Potential Rehabilitation Potential Fair Summary Impairments Pain,ROM,Strength,Balance, Coordination,Sensation,Tone, Cognition,Bed Mobility, Transfers,Gait,Activity Tolerance Progress Towards Goals Slow Progress due to Activity Tolerance,Slow Progress - Other Assessment Summary The pt made some improvements this session, as he was able to ambulate to bathroom and back to bed with CGA. However, he continues to required mod- maxA for bed mobility and maxA to perform STS due to difficulty using LLE while maintaining precautions, weakness and endurance deficits. Though he was made some progress, PT continues to recommend discharge to SNF due to his current deficits and the level of assistance he currently requires. Goals Bed Mobility Goal Standby Assistance Transfer Goal Standby Assistance,Front Wheeled Walker Gait Goal Standby Assistance,Front Wheel Walker Gait Distance 75 Days to Meet Goals 10 Frequency of Treatment Frequency Of Treatment Twice a Day Treatment Plan Physical Therapy Treatment Plan Bed Mobility Training,Transfer Training,Gait Training, Therapeutic Exercise,Balance Retraining,Discharge Planning, Hot or Cold Pack Other Recommendations and Next Treatment progress gait and bed mobility Focus as able. Precautions Brace LLE Knee immobilizer Other Precautions Per ortho MD: No outpt PT until L wound/incision heals Weight Bearing Status Weight Bearing Status Weight Bear as Tolerated Allowed Weight Bearing Amount (enter % LLE: Walker and knee or #) (%) immobilizer on Recommendations To Nursing Amount of Assist Needed 1 Person Assist,2 Person Assist Discharge Recommendations PT Discharge Recommendations SNF Rehab Transportation Needs at Discharge Wheelchair/Cabulance
[2023-07-13] MEDS: TRIMETH/SULFA 160/800 (DS) TABLET 1 TAB PO ×2 (10:52→20:35)
--- NOTE | 2023-07-13 11:00 | CM.DPC ---
DCP SNF Planning: Per RN, in contact with w/e Ortho today and updating on pt's status, they will round later on pt. Per PT this AM, pt has improved some but still a heavy max 1PA at this time and still recommending SNF and spouse in agreement. [facility] faxed updated clinicals to [facility], [facility], and [facility] in [place] per pt/spouse SNF preferences. SW spoke to [facility] admissions and they can accept pt tomorrow Mon 07/14 if medically stable to d/c but not today. SW spoke to [facility] admissions and they can accept pt Tu07/15 if medically stable to d/c but not today or Mon. [facility]NOCH left msg with [facility] admissions. SW met bedside with pt, spouse, and RN and updated on above and they remain in agreement that SNF needed at d/c and agreeable with [facility] if ready for d/c tomorrow Mon 07/14. PASRR done. SW updated [facility] and they will begin attempting to set up transport via cabulance for tomorrow before it gets booked up. Plan: SW to follow closely for Ortho to confirm pt stable for d/c tomorrow 07/14 to [facility] SNF rehab. LEILA Us
--- NOTE | 2023-07-13 13:41 | PT.IPTN ---
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, initial encounter (07/10/23) Presence of unspecified artificial knee joint (07/10/23) Surgery Performed Operation Date: 07/10/23 07:45 Actual Procedures p conversion of total knee arthroplasty from prior unicompartmental arthroplasty(Left) - Zain Henderson MD Physical Therapy Treatment Note M2 PT-IP Current Condition Start: 07/10/23 17:11 Freq: NEEDED Status: Active Protocol: Document 07/11/23 11:00 MB (Rec: 07/11/23 12:23 MB [id number]) Physical Therapy Current Condition Current Condition Evaluation Date 07/11/23 Treatment Diagnosis Left knee TKA, conversion of unicompartmental to TKA Onset Date 07/10/23 M3 PT-IP Subjective Start: 07/10/23 17:11 Freq: NEEDED Status: Active Protocol: Document 07/13/23 14:10 AB (Rec: 07/13/23 14:23 AB [id number]) Subjective Physical Therapy Visit Type Type Treatment Note Visit Start Time 12:50 Visit Stop Time 13:41 Total Visit Minutes 51 Physical Therapy Visit Comments Patient Comments Pt presents semi supine in bed with spouse at bedside. He is agreeable to PT and states he is feeling much better compared to this AM. Therapy Pain Assessment Pain When Pain Assessed During Mobility Pain Present Pain Present Pain Reported Location Left Knee Intensity 4 Pain Behaviors Facial Grimacing,Wincing Pain Management Techniques Apply Cold,Modification of Treatment,Re-positioning M4 PT-IP Mobility and Gait Start: 07/10/23 17:11 Freq: NEEDED Status: Active Protocol: Document 07/13/23 14:10 AB (Rec: 07/13/23 14:23 AB [id number]) PT-Bed Mobility Assessment Supine to Sit Supine to Sit Moderate Assistance,Maximum Assistance,1 Person Assistance ,Head of Bed Elevated,Bedrails Sit to Supine Sit to Supine Minimal Assistance,Moderate Assistance,Head of Bed Elevated,Bedrails Scooting Scooting to Edge of Bed Standby Assistance PT-Transfer Assessment Sit to and From Stand Sit to and from Stand Moderate Assistance,Maximum Assistance,1 Person Assistance ,Use of Upper Extremities Equipment Transfer Assistive Device Gait Belt,Front Wheeled Walker Orthotic/Prosthetic Devices or Brace: No Transfers Transfer Destination Bed,Chair Transfer Technique Stand Step Pivot Transfer Ability Level of Assist Moderate Assistance,1 Person Assistance,Use of Upper Extremities Comments Mobility Comments RN has cleared with surgeon that pt may have immobilizer off when in bed, but must have it on for mobility. PT donned AUTUMN wraps and immobilizer, with abd pad placed between brace and skin to prevent further skin breakdown in groin area. Pt then performed bed mobility with mod-maxA, however shows improvement in STS, as he required modA and minimal cueing. Pt then ambulated noted as below. STS x3 were performed with pt requiring extended rest breaks between reps due to weakness and fatigue. Pt performed first STS with Phu, but then required modA and maxA for 2nd and 3rd reps respectively, likely due to fatigue. At end of session, pt returned to bed with min-modA. PT doffed wraps and immobilizer and applied ice packs. All needs were met and call light was placed within reach. Gait Assessment Gait Gait Assistance Required: Contact Guard Assist,1 Person Assist Distance (Feet) 15 Able to Maintain Weight Bearing Status Yes During Gait Assistive Devices Assistive Device Gait Belt,Front Wheeled Walker Orthotic/Prosthetic Devices or Brace: No Gait Deviations General Gait Pattern Antalgic,Decreased Stride Length,Decreased Feet Clearance,Step-to Gait Factors Limiting Gait Function Factors Limiting Gait Function Decreased Activity Tolerance, Decreased Strength,Difficulty Following Directions,Pain,Poor Balance,Poor Safety Awareness ,Respiratory Distress Comments Gait Comments Pt ambulated around room 15ft x2, requiring 1 standing break between bouts of ambulation due to weakness and fatigue. Again, no instances of LOB or instability were noted, and pt demonstrates good step to gait to maintain LLE extended. M5 PT-IP Objective Assessments Start: 07/10/23 17:11 Freq: NEEDED Status: Active Protocol: Document 07/11/23 11:00 MB (Rec: 07/11/23 12:23 MB [id number]) Orientation Orientation/Cognition Level of Alertness Alert Orientation Name,Age,Birthday,Month,Date, Year,Day of Week,Place, Situation Language Function Ability No Deficits Noted Safety Awareness Decreased Safety Awareness Memory Description No Deficits Noted Comments Poor body awareness and command-following Gross Range of Motion Lower Extremity ROM Assessment Left Impaired Strength Lower Extremity Strength Assessment Left Impaired Comments Strength Comments Functional RLE movement and pt has limited left ankle DF and PF and edematous foot. Hip and knee on the left limited by immobilizer and assume no flexion in immobilizer Sensation Assessment Comments Sensation Comments Poor communication with attempted sensory input to left foot, grimacing with touching LLE M6 PT-IP Treatment Start: 07/10/23 17:11 Freq: NEEDED Status: Active Protocol: Document 07/13/23 14:10 AB (Rec: 07/13/23 14:23 AB [id number]) Physical Therapy Treatment Education Education Provided Precautions,Safety M7 PT-IP Assessment and Plan Start: 07/10/23 17:11 Freq: NEEDED Status: Active Protocol: Document 07/13/23 14:10 AB (Rec: 07/13/23 14:23 AB [id number]) PT Summary Assessment and Plan Potential Rehabilitation Potential Fair Summary Impairments Pain,ROM,Strength,Balance, Coordination,Sensation,Tone, Cognition,Bed Mobility, Transfers,Gait,Activity Tolerance Progress Towards Goals Slow Progress due to Activity Tolerance,Slow Progress - Other Assessment Summary The pt tolerated more activity this session, as he was able to ambulate a greater distance and performed STS x3. However , he continues requiring a high level of assistance due to weakness, fatigue and endurance deficits, as noted above. Because of these impairments, SNF continues to be the recommended discharge location, though is subject to change based on progress made before discharge. Goals Bed Mobility Goal Standby Assistance Transfer Goal Standby Assistance,Front Wheeled Walker Gait Goal Standby Assistance,Front Wheel Walker Gait Distance 75 Days to Meet Goals 10 Frequency of Treatment Frequency Of Treatment Twice a Day Treatment Plan Physical Therapy Treatment Plan Bed Mobility Training,Transfer Training,Gait Training, Therapeutic Exercise,Balance Retraining,Discharge Planning, Hot or Cold Pack Other Recommendations and Next Treatment progress gait and bed mobility Focus as able. Precautions Brace LLE Knee immobilizer when performing functional mobility Other Precautions Per ortho MD: No outpt PT until L wound/incision heals Weight Bearing Status Weight Bearing Status Weight Bear as Tolerated Allowed Weight Bearing Amount (enter % LLE: Walker and knee or #) (%) immobilizer on when performing functional mobility Recommendations To Nursing Amount of Assist Needed 1 Person Assist Discharge Recommendations PT Discharge Recommendations SNF Rehab Transportation Needs at Discharge Wheelchair/Cabulance
[2023-07-13 15:00] VITALS: BP 126/56; PULSE 82; RESP 17; TEMP 36.4; O2SAT 97
--- NOTE | 2023-07-13 18:57 | PC.NURSE ---
patient is alert/oriented. voices needs. denies pain/discomfort. after breakfast PT Maricruz assisting patient w/ OOB to toilet. 1pa Max assist and able to walk to and from the bathroom w/ FWW. Patient reports pain under his left thigh where the brace was rubbing. brace velcro was undone, brace opened up, and assessed skin. left thigh, small open area (blister that had popped) and red abraised area noted. brace removed and lowered and after brace removed: small blisters noted to top of left thigh. patient agressively scratching at these. instructed to NOT do that, area cleansed w/ cool wet washcloth. patient reports this is feeling much improved after brace velcro released. new immobilizer parameters given by surgeon: may have immobilizer off while in bed, to let skin breathe. when getting OOB and amb w/ PT: please wrap w/ AUTUMN and reapply immobilizer. f/u appt w/ surgeon on POD #11 (07/21/23) and immobilizer will be d/c'd and patient will start ROM on LLE. update to surgeon at end of shift. report to Kaylyn, all above relayed in bedside report. patient reports skin is feeling much better. continues to deny pain /discomfort. call light w/in reach.
[2023-07-13] MEDS: ATORVASTATIN 20 MG TABLET 40 MG PO (20:34)
[2023-07-13] MEDS: SODIUM CHLORIDE 0.9% FLUSH 10 ML IV (20:35)
[2023-07-13 21:00] VITALS: BP 117/75; PULSE 84; RESP 17; TEMP 36.5; O2SAT 93
--- NOTE | 2023-07-14 00:09 | PC.NURSE ---
Patient is alert and oriented. Breath sounds CTA with RA sat of 93%; denied SOB. HRR. Denied nausea. BT hypoactive but is passing flatus and had as BM on previous shift. Is voiding per urinal and states he has some burning (had catheter during surgery) but has improved. Is able move himself in bed but hesitant to do much related to hx of wound dehiscence following knee surgery. When out of bed reportedly in using walker with 1 assist. Currently lying in bed with immobilizer open and aces off but is to have them both on whenever he gets out of bed. JONAS dressing is intact, without drainage and functioning. Calf SCD applied to right LE. Edema noted in left LE although at shift change RN reported it had improved from earlier. Noted blisters on anterior left thigh and opened blisters on posterior left thigh near perineum. Stated pain only 1/10 and requested not to be awakened for 0145 tylenol/ibuprofen. CMS is intact Fall risk score is moderate; bed alarm is activated.
[2023-07-14] MEDS: PANTOPRAZOLE DR 20 MG TABLET PO (05:29)
[2023-07-14 05:35] VITALS: BP 135/51; PULSE 73; RESP 16; TEMP 36.2; O2SAT 96
[2023-07-14 08:00] VITALS: BP 139/62; PULSE 84; RESP 17; TEMP 36.6; O2SAT 99
[2023-07-14] MEDS: IBUPROFEN 600 MG TABLET PO ×2 (08:10→13:39)
[2023-07-14] MEDS: ACETAMINOPHEN 325 MG TABLET 650 MG PO ×2 (08:10→13:39)
[2023-07-14] MEDS: HYDROXYCHLOROQUINE 200 MG TABLET 400 MG PO (08:11)
[2023-07-14] MEDS: APIXABAN 5 MG TABLET PO (08:11)
[2023-07-14] MEDS: SODIUM CHLORIDE 0.9% FLUSH 10 ML IV (08:11)
[2023-07-14] MEDS: TRIMETH/SULFA 160/800 (DS) TABLET 1 TAB PO (09:28)
--- NOTE | 2023-07-14 09:33 | PT.IPTN ---
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, initial encounter (07/10/23) Presence of unspecified artificial knee joint (07/10/23) Surgery Performed Operation Date: 07/10/23 07:45 Actual Procedures p conversion of total knee arthroplasty from prior unicompartmental arthroplasty(Left) - Zain Henderson MD Physical Therapy Treatment Note M2 PT-IP Current Condition Start: 07/10/23 17:11 Freq: NEEDED Status: Active Protocol: Document 07/11/23 11:00 MB (Rec: 07/11/23 12:23 MB [id number]) Physical Therapy Current Condition Current Condition Evaluation Date 07/11/23 Treatment Diagnosis Left knee TKA, conversion of unicompartmental to TKA Onset Date 07/10/23 M3 PT-IP Subjective Start: 07/10/23 17:11 Freq: NEEDED Status: Active Protocol: Document 07/14/23 09:33 AW (Rec: 07/14/23 09:44 AW [id number]) Subjective Physical Therapy Visit Type Type Treatment Note Visit Start Time 09:06 Visit Stop Time 09:33 Total Visit Minutes [address] Henderson states he would like to keep the knee in immobilizer if possible in order to protect the wound but pt may have it off if he is unable to progress to safe household mobility with it on. Number of LASER ENGINEER Visits 0 Physical Therapy Visit Comments Patient Comments Pt would like to get to the toilet Patient Goals To go home and avoid SNF if possible Therapy Pain Assessment Pain When Pain Assessed During Mobility Pain Present Pain Present Pain Reported Location Left Knee Intensity 3 Scale Used Numeric (0 - 10) Pain Behaviors Facial Grimacing Pain Management Techniques Apply Cold,Re-positioning, Timing of Activity with Medications M4 PT-IP Mobility and Gait Start: 07/10/23 17:11 Freq: NEEDED Status: Active Protocol: Document 07/14/23 09:33 AW (Rec: 07/14/23 09:44 AW [id number]) PT-Bed Mobility Assessment Supine to Sit Supine to Sit Contact Guard Assistance Scooting Scooting to Edge of Bed Standby Assistance PT-Transfer Assessment Sit to and From Stand Sit to and from Stand Contact Guard Assistance, Minimal Assistance,1 Person Assistance,Use of Upper Extremities Equipment Transfer Assistive Device Gait Belt,Front Wheeled Walker Orthotic/Prosthetic Devices or Brace: Yes Transfers Transfer Destination Chair,Toilet Transfer Technique Stand Step Pivot Transfer Ability Level of Assist Contact Guard Assistance,1 Person Assistance,Use of Upper Extremities Comments Mobility Comments Pt found lying in bed with immobilizer loosened. PT dons immobilizer and pt is able to transition to sitting EOB with just CGA to help the LLE slide. Pt notes his bed at home is tall and PT raises the bed surface. Pt stands from the bed with CGA and uses FWW to ambulate 12 feet to the toilet, transferring with heavy use of the grab bar and CGA. He stands with min assist after voiding and uses FWW to ambulate to the sink to wash hands. He continues to ambulate in the hallways a total of 75' before returning to the chair (fitted with pillow to make it slightly taller). He transfers to chair with CGA. He stands from the chair again with CGA/min A and verbal cues for technique before settling in to the chair where he was left as care transitioned to nursing. Gait Assessment Gait Gait Assistance Required: Standby Assistance Distance (Feet) 75 Able to Maintain Weight Bearing Status Yes During Gait Assistive Devices Assistive Device Gait Belt,Front Wheeled Walker Orthotic/Prosthetic Devices or Brace: Yes Gait Deviations General Gait Pattern Antalgic,Decreased Stride Length,Decreased Feet Clearance,Step-to Gait Factors Limiting Gait Function Factors Limiting Gait Function Decreased Strength,Limited Range of Motion,Pain Comments Gait Comments Pt is able to advance LLE while immobilizer donned. No significant increase in pain while ambulating. Stair Climbing Assessment Comments Stair Climbing Comments Ramped entry at home PT-Balance Assessment Sitting Balance and Reactions Static Sitting Balance Ability Good Dynamic Sitting Balance Ability Good Standing Balance and Reactions Static Standing Balance Ability Good Dynamic Standing Balance Ability Fair Device Used FWW M5 PT-IP Objective Assessments Start: 07/10/23 17:11 Freq: NEEDED Status: Active Protocol: Document 07/11/23 11:00 MB (Rec: 07/11/23 12:23 MB [id number]) Orientation Orientation/Cognition Level of Alertness Alert Orientation Name,Age,Birthday,Month,Date, Year,Day of Week,Place, Situation Language Function Ability No Deficits Noted Safety Awareness Decreased Safety Awareness Memory Description No Deficits Noted Comments Poor body awareness and command-following Gross Range of Motion Lower Extremity ROM Assessment Left Impaired Strength Lower Extremity Strength Assessment Left Impaired Comments Strength Comments Functional RLE movement and pt has limited left ankle DF and PF and edematous foot. Hip and knee on the left limited by immobilizer and assume no flexion in immobilizer Sensation Assessment Comments Sensation Comments Poor communication with attempted sensory input to left foot, grimacing with touching LLE M6 PT-IP Treatment Start: 07/10/23 17:11 Freq: NEEDED Status: Active Protocol: Document 07/14/23 09:33 AW (Rec: 07/14/23 09:44 AW [id number]) Physical Therapy Treatment Education Education Provided Weight Bearing Status,Safety M7 PT-IP Assessment and Plan Start: 07/10/23 17:11 Freq: NEEDED Status: Active Protocol: Document 07/14/23 09:33 AW (Rec: 07/14/23 09:44 AW [id number]) PT Summary Assessment and Plan Potential Rehabilitation Potential Good Summary Impairments Pain,ROM,Strength,Balance, Coordination,Sensation,Tone, Cognition,Bed Mobility, Transfers,Gait,Activity Tolerance Progress Towards Goals Progressing Toward Goals,Slow Progress - Other Assessment Summary Nader was able to progress his mobility this date, requiring significantly less assist, even with knee immobilizer on. Ortho prefers the pt use the immobilizer for at least another week in order to protect the wound and ensure good closure (given history of wound infections) but states the pt may mobilize without the brace if it makes the difference between going to home vs SNF at discharge. Pt today needed no more than CGA for sit to stand from elevated surfaces and light min assist for sit to stand from a lower chair/toilet. Pt states all surfaces at home are tall enough to accommodate his current mobility needs and he prefers to go home. Will conduct one more session with spouse, if possible, to ensure all questions are answered and all are confident in pt's ability to manage with little assist at home. Will also review vehicle transfers and answer all questions. PT recommending pt discharge home with assist and home PT ( primarily for home safety assessment; no aggressive ROM) . Goals Bed Mobility Goal Standby Assistance Transfer Goal Standby Assistance,Front Wheeled Walker Gait Goal Standby Assistance,Front Wheel Walker Gait Distance 75 Days to Meet Goals 10 Frequency of Treatment Frequency Of Treatment Twice a Day Treatment Plan Physical Therapy Treatment Plan Bed Mobility Training,Transfer Training,Gait Training, Therapeutic Exercise,Balance Retraining,Discharge Planning, Hot or Cold Pack Other Recommendations and Next Treatment progress gait and bed mobility Focus as able. Precautions Brace LLE Knee immobilizer when performing functional mobility Other Precautions Per ortho MD: No outpt PT until L wound/incision heals Weight Bearing Status Weight Bearing Status Weight Bear as Tolerated Allowed Weight Bearing Amount (enter % LLE: Walker and knee or #) (%) immobilizer on when performing functional mobility Recommendations To Nursing Amount of Assist Needed 1 Person Assist Discharge Recommendations PT Discharge Recommendations Home with 28/04 Assist Available,Home Health Transportation Needs at Discharge Private Vehicle,Wheelchair/ Cabulance
[2023-07-14 12:00] VITALS: BP 133/56; PULSE 82; RESP 18; TEMP 36.4; O2SAT 98
--- NOTE | 2023-07-14 12:47 | CM.DPC ---
Addendum entered by LEILA Us 07/14/23 13:26: ADD: Ariana CHAVIRA not in-house to sign F2F so F2F faxed to O Office for MD to sign and fax to [facility] later today/in the morning. BF Original Note: DCP Discharge Home with HH Per Ortho , want pt to work with PT again this morning with immobilizer as goal is home rather than SNF at discharge today. Per PT, pt had great improvement with mobility today and was CGA to min assist x1 and feels pt safe for d/c to home with spouse assist and HH. Will attempt CG training early afternoon once spouse arrives bedside. SW and RN updated Ariana CHAVIRA and in agreement with d/c to home and HH PT for now while awaiting f/u outpt appointment. SW met bedside with pt and he confirms he is in agreement with d/c to home with spouse assist and HH and no HH preference after reviewing HH Choice list. TOSHA Sales kindly made initial referral to [facility] based on Vendor Calendar and they will review now. SW awaiting Ariana CHAVIRA to sign F2F form. TOSHA Sales and ENOCH updated Anabela at [facility] that d/c plan has now changed from SNF to HH now and Anabela cancelled transportation to their facility for today. Plan: Patient to d/c home today via spouse POV after she arrives bedside for final CG training with PT and new [facility] referral made and orders placed and awaiting F2F to be signed for [facility]. LEILA Us
--- NOTE | 2023-07-14 15:10 | PT.IPTN ---
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, initial encounter (07/10/23) Presence of unspecified artificial knee joint (07/10/23) Surgery Performed Operation Date: 07/10/23 07:45 Actual Procedures p conversion of total knee arthroplasty from prior unicompartmental arthroplasty(Left) - Zain Henderson MD Physical Therapy Treatment Note M2 PT-IP Current Condition Start: 07/10/23 17:11 Freq: NEEDED Status: Active Protocol: Document 07/11/23 11:00 MB (Rec: 07/11/23 12:23 MB [id number]) Physical Therapy Current Condition Current Condition Evaluation Date 07/11/23 Treatment Diagnosis Left knee TKA, conversion of unicompartmental to TKA Onset Date 07/10/23 M3 PT-IP Subjective Start: 07/10/23 17:11 Freq: NEEDED Status: Active Protocol: Document 07/14/23 15:10 AW (Rec: 07/14/23 15:32 AW [id number]) Subjective Physical Therapy Visit Type Type Treatment Note Visit Start Time 14:56 Visit Stop Time 15:10 Total Visit Minutes 14 Notes Pt's spouse is present and participating in caregiver training. Number of MANAGER SUSTAINABILITY Visits 0 Physical Therapy Visit Comments Patient Comments Pt is willing to participate with PT Patient Goals Ready to discharge Therapy Pain Assessment Pain When Pain Assessed During Mobility Pain Present Pain Present Pain Reported Location Left Knee Intensity 4 Scale Used Numeric (0 - 10) M4 PT-IP Mobility and Gait Start: 07/10/23 17:11 Freq: NEEDED Status: Active Protocol: Document 07/14/23 15:10 AW (Rec: 07/14/23 15:32 AW [id number]) PT-Transfer Assessment Sit to and From Stand Sit to and from Stand Contact Guard Assistance, Minimal Assistance,1 Person Assistance,Use of Upper Extremities Equipment Transfer Assistive Device Gait Belt,Front Wheeled Walker Orthotic/Prosthetic Devices or Brace: Yes Transfers Transfer Destination Bed,Toilet Transfer Technique Stand Step Pivot Transfer Ability Level of Assist Contact Guard Assistance,Use of Upper Extremities Comments Mobility Comments Pt is found reclined in the chair with immobilizer loosened. PT assists pt to tighten the brace and his spouse follows along for instruction. Pt stands from the chair with min assist, repeating that all surfaces at home are taller than this chair. Pt ambulates 80 feet using FWW with SBA, no difficulty advancing the LLE. On return to the room, pt transfers to the toilet, relying on the grab bar as he will have at home, with CGA. Pt stands and returns to sitting EOB as care transitions to his who is in to help him get dressed. Gait Assessment Gait Gait Assistance Required: Standby Assistance Distance (Feet) 80 Able to Maintain Weight Bearing Status Yes During Gait Assistive Devices Assistive Device Gait Belt,Front Wheeled Walker Orthotic/Prosthetic Devices or Brace: Yes Gait Deviations General Gait Pattern Antalgic,Decreased Stride Length,Decreased Feet Clearance,Step-to Gait Factors Limiting Gait Function Factors Limiting Gait Function Decreased Strength,Limited Range of Motion,Pain Stair Climbing Assessment Comments Stair Climbing Comments Ramped entry at home PT-Balance Assessment Sitting Balance and Reactions Static Sitting Balance Ability Good Dynamic Sitting Balance Ability Good Standing Balance and Reactions Static Standing Balance Ability Good Dynamic Standing Balance Ability Fair Device Used FWW M5 PT-IP Objective Assessments Start: 07/10/23 17:11 Freq: NEEDED Status: Active Protocol: Document 07/11/23 11:00 MB (Rec: 07/11/23 12:23 MB [id number]) Orientation Orientation/Cognition Level of Alertness Alert Orientation Name,Age,Birthday,Month,Date, Year,Day of Week,Place, Situation Language Function Ability No Deficits Noted Safety Awareness Decreased Safety Awareness Memory Description No Deficits Noted Comments Poor body awareness and command-following Gross Range of Motion Lower Extremity ROM Assessment Left Impaired Strength Lower Extremity Strength Assessment Left Impaired Comments Strength Comments Functional RLE movement and pt has limited left ankle DF and PF and edematous foot. Hip and knee on the left limited by immobilizer and assume no flexion in immobilizer Sensation Assessment Comments Sensation Comments Poor communication with attempted sensory input to left foot, grimacing with touching LLE M6 PT-IP Treatment Start: 07/10/23 17:11 Freq: NEEDED Status: Active Protocol: Document 07/14/23 15:10 AW (Rec: 07/14/23 15:32 AW [id number]) Physical Therapy Treatment Education Education Provided Weight Bearing Status,Safety Other Treatments Other Treatment Performed Spouse understands need for CGA during transitional movements and is able to provide such assist via gait belt. M7 PT-IP Assessment and Plan Start: 07/10/23 17:11 Freq: NEEDED Status: Active Protocol: Document 07/14/23 15:10 AW (Rec: 07/14/23 15:32 AW [id number]) PT Summary Assessment and Plan Potential Rehabilitation Potential Good Summary Impairments Pain,ROM,Strength,Balance, Coordination,Sensation,Tone, Cognition,Bed Mobility, Transfers,Gait,Activity Tolerance Progress Towards Goals Progressing Toward Goals Assessment Summary Nader and his spouse participated in caregiver training. Spouse was able to provide appropriate level of assist without undue strain and without putting pt at risk . Pt will continue to use the knee immobilizer for the next week until reassessed by ortho . PT recommends discharge home with assist and home PT ( primarily for home safety assessment; no aggressive ROM) . Goals Bed Mobility Goal Standby Assistance Transfer Goal Standby Assistance,Front Wheeled Walker Gait Goal Standby Assistance,Front Wheel Walker Gait Distance 75 Days to Meet Goals 10 Frequency of Treatment Frequency Of Treatment Twice a Day Treatment Plan Physical Therapy Treatment Plan Bed Mobility Training,Transfer Training,Gait Training, Therapeutic Exercise,Balance Retraining,Discharge Planning, Hot or Cold Pack Other Recommendations and Next Treatment progress gait and bed mobility Focus as able. Precautions Brace LLE Knee immobilizer when performing functional mobility Other Precautions Per ortho MD: No outpt PT until L wound/incision heals Weight Bearing Status Weight Bearing Status Weight Bear as Tolerated Allowed Weight Bearing Amount (enter % LLE: Walker and knee or #) (%) immobilizer on when performing functional mobility Recommendations To Nursing Amount of Assist Needed 1 Person Assist Discharge Recommendations PT Discharge Recommendations Home with Assistance,Home with / Assist Available,Home Health Transportation Needs at Discharge Private Vehicle
--- NOTE | 2023-08-05 20:06 | PC.NURSE ---
late entry charting for visit day shift. skin issue that arose during this day shift was L knee surgery- attempted to document on EMAR the approx measurements of blisters that appeared under L leg brace. unable to access the skin diagram that accompanies skin checks / daily assessments. L upper thigh presented w/ approx 4x4 cm square area under the brace- small fluid filled blisters appeared, patient scratching at upper thigh- area was cleansed and left ROSA MARIA til surgeon contacted to update on new skin issues. LLE under the brace under gluteal fold/inner thigh: patient presented w/ approx 4x1cm red line w/ small blisters that had popped and skin was very red and very itchy per patient. after brace carefully un-velcroed, area under brace was cleansed w/ warm water and washcloth, left ROSA MARIA. patient expressed immediate relief. above info attempted to show on skin diagram, but unable to access it at this time. MARCELLUS sandra
== END 2023-07-14 15:32 | disposition home or self-care (01) | DRG 468 ==
PROVIDERS: Admitting Provider Orthopaedic Surgery Adult Reconstructive Orthopaedic Surgery; PCP Family Medicine; Referring Provider Orthopaedic Surgery Adult Reconstructive Orthopaedic Surgery; Visit Provider Orthopaedic Surgery Adult Reconstructive Orthopaedic Surgery
PROC: 0SRD0JZ Replacement of Left Knee Joint with Synthetic Substitute, Open Approach (ICD-10-PCS; CPT 27447; principal; 2023-07-10 07:45)
DX: M17.12 Unilateral primary osteoarthritis, left knee (principal); I10 Essential (primary) hypertension; G47.33 Obstructive sleep apnea (adult) (pediatric); Z79.01 Long term (current) use of anticoagulants
CPT/HCPCS: 36415; 64450; 73560; 76000; 85014; 85018; 85025; 87070; 87075; 87077; 87176; 87205; 97116; 97161; 97530; 97535; C1776; J0690; J1100; J1170; J2405; J2704